=== PATIENT | female | born 1935 | race Caucasian/White ===

== ENCOUNTER 2016-07-16 19:08 | Inpatient (IN) | payer MEDICARE ==
[~2016-07-16] VITALS: Ht 160 cm; Wt 58.9 kg
[2016-07-16 19:23] VITALS: BP 116/58; PULSE 94; RESP 28; TEMP 98.4; O2SAT 93
--- NOTE | 2016-07-16 19:28 | PD ---
HPI Chief Complaint: GI Complaint Time Seen by Provider: 19:24 Travel History International Travel<30 days: No Contact w/Intl Traveler<30days: No Traveled to known affect area: No History of Present Illness HPI 80-year-old female with history of cardiac dysrhythmia, anxiety, hyperlipidemia , anemia, dementia, hypertension, CAD, brought in by ambulance from her assisted living facility for evaluation of nausea, vomiting, diarrhea, abdominal pain. Symptoms started at 2 AM today. Emesis and bowel movements are nonbloody. Abdominal pain described as nauseous feeling. Patient is also complaining moderate diffuse headache. She denies history of abdominal surgeries. No urinary symptoms. She is feeling lightly short of breath. No chest pain. EMS reports that her initial blood pressure was 90s over 60s and she was administered a 500 cc normal saline bolus by them. [facility]LY [facility] Social History Tobacco Use: No Allergies-Medications (Allergen,Severity, Reaction): Coded Allergies: No Known Allergies (Unverified , 07/16/16) Reported Meds & Prescriptions Reported Meds & Active Scripts Active Reported Trazodone (Trazodone HCl) 50 Mg Tab 50 Mg PO TID Triamcinolone Topical 0.025 % Oint 1 Applic TOPICAL BID Sertraline (Sertraline HCl) 100 Mg Tab 100 Mg PO DAILY Santyl Topical (Collagenase) 250 Unit/Gm Oint 1 Applic TOPICAL DAILY Pantoprazole (Pantoprazole Sodium) 40 Mg Tab 40 Mg PO DAILY Mirtazapine 15 Mg Tab 15 Mg PO HS Levocetirizine 5 Mg Tab 5 Mg PO DAILY Ferosul (Ferrous Sulfate) 220 Mg/5 Ml Elx 325 Mg PO BID Clobetasol Topical (Clobetasol Propionate) 0.05% Cream 1 Applic TOPICAL BID Carvedilol 6.25 Mg Tab 6.25 Mg PO BID Calcium 500 +D (Calcium Carbonate-Cholecalciferol) 500-400 Mg-Unit Tab 1 Tab PO BID Buspirone (Buspirone HCl) 10 Mg Tab 10 Mg PO BID Atorvastatin (Atorvastatin Calcium) 40 Mg Tab 40 Mg PO HS Aspirin 81 Mg Tabdr 81 Mg PO DAILY Review of Systems Except as stated in HPI: all other systems reviewed are Neg Physical Exam Narrative GENERAL: Pleasant, well-developed, well-nourished, no acute distress. SKIN: Focused skin assessment warm/dry. HEAD: Atraumatic. Normocephalic. EYES: Pupils equal and round. No scleral icterus. No injection or drainage. ENT: Mucous membranes pink and moist. NECK: Trachea midline. No JVD. No nuchal rigidity. CARDIOVASCULAR: Regular rate and rhythm. RESPIRATORY: No accessory muscle use. Clear to auscultation. Breath sounds equal bilaterally. GASTROINTESTINAL: Abdomen soft, mild distention, mild diffuse tenderness, no peritoneal signs. Normal bowel sounds. No hernias. MUSCULOSKELETAL: No obvious deformities. No clubbing. No cyanosis. No edema. NEUROLOGICAL: Awake and alert. No obvious cranial nerve deficits. Motor grossly within normal limits. Normal speech. PSYCHIATRIC: Appropriate mood and affect; insight and judgment normal. Data Data Last Documented VS Vital Signs Date Time Temp Pulse Resp B/P Pulse Ox O2 Delivery O2 Flow Rate FiO2 07/16/16 21:25 81 20 114/70 98 Nasal Cannula 2 07/16/16 19:23 98.4 Orders Electrocardiogram (07/16/16 19:24) Complete Blood Count With Diff (07/16/16 19:24) Comprehensive Metabolic Panel (07/16/16 19:24) Prothrombin Time / Inr (Pt) (07/16/16 19:24) Act Partial Throm Time (Ptt) (07/16/16 19:24) Lactic Acid Sepsis Protocol (07/16/16 19:24) Magnesium (Mg) (07/16/16 19:24) Lipase (07/16/16 19:24) Ckmb (Isoenzyme) Profile (07/16/16 19:24) Troponin I (07/16/16 19:24) Urinalysis - C+S If Indicated (07/16/16 19:24) Blood Culture (07/16/16 19:24) Chest, Single Ap (07/16/16 19:24) Ecg Monitoring (07/16/16 19:24) Iv Access Insert/Monitor (07/16/16 19:24) Oximetry (07/16/16 19:24) Oxygen Administration (07/16/16 19:24) Ct Abd/Pel W Iv Contrast(Rout) (07/16/16 19:24) Ct Brain W/O Iv Contrast(Rout) (07/16/16 ) Metoclopramide Inj (Reglan Inj) (07/16/16 20:00) Morphine Inj (Morphine Inj) (07/16/16 20:00) Iodixanol 320 Inj (Visipaque 320 Inj) (07/16/16 21:00) Admit Order (Ed Use Only) (07/16/16 21:40) Labs Laboratory Tests Test 07/16/16 19:40 White Blood Count 9.5 TH/MM3 Red Blood Count 4.41 MIL/MM3 Hemoglobin 13.1 GM/DL Hematocrit 38.8 % Mean Corpuscular Volume 88.0 FL Mean Corpuscular Hemoglobin 29.6 PG Mean Corpuscular Hemoglobin 33.7 % Concent Red Cell Distribution Width 13.8 % Platelet Count 203 TH/MM3 Mean Platelet Volume 9.8 FL Neutrophils (%) (Auto) 86.3 % Lymphocytes (%) (Auto) 5.8 % Monocytes (%) (Auto) 7.1 % Eosinophils (%) (Auto) 0.3 % Basophils (%) (Auto) 0.5 % Neutrophils # (Auto) 8.2 TH/MM3 Lymphocytes # (Auto) 0.6 TH/MM3 Monocytes # (Auto) 0.7 TH/MM3 Eosinophils # (Auto) 0.0 TH/MM3 Basophils # (Auto) 0.0 TH/MM3 CBC Comment DIFF FINAL Differential Comment Prothrombin Time 10.7 SEC Prothromb Time International 1.0 RATIO Ratio Activated Partial 29.2 SEC Thromboplast Time Urine Color YELLOW Urine Turbidity HAZY Urine pH 5.5 Urine Specific [place] 1.026 Urine Protein 30 mg/dL Urine Glucose (UA) NEG mg/dL Urine Ketones NEG mg/dL Urine Occult Blood TRACE Urine Nitrite NEG Urine Bilirubin NEG Urine Urobilinogen LESS THAN 2.0 MG/DL Urine Leukocyte Esterase NEG Urine RBC LESS THAN 1 /hpf Urine WBC LESS THAN 1 /hpf Urine Hyaline Casts 18 /lpf Urine Mucus FEW /lpf Microscopic Urinalysis Comment CATH-CULT NOT IND Sodium Level 136 MEQ/L Potassium Level 3.8 MEQ/L Chloride Level 103 MEQ/L Carbon Dioxide Level 25.0 MEQ/L Anion Gap 8 MEQ/L Blood Urea Nitrogen 24 MG/DL Creatinine 1.42 MG/DL Estimat Glomerular Filtration 36 ML/MIN Rate Random Glucose 127 MG/DL Lactic Acid Level 1.2 mmol/L Calcium Level 8.8 MG/DL Magnesium Level 2.1 MG/DL Total Bilirubin 0.6 MG/DL Aspartate Amino Transf 18 U/L (AST/SGOT) Alanine Aminotransferase 16 U/L (ALT/SGPT) Alkaline Phosphatase 89 U/L Total Creatine Kinase 95 U/L Troponin I LESS THAN 0.02 NG/ML Total Protein 7.9 GM/DL Albumin 3.7 GM/DL Lipase 92 U/L MDM Medical Decision Making Medical Screen Exam Complete: Yes Emergency Medical Condition: Yes Differential Diagnosis Gastroenteritis, dehydration, bowel obstruction, colitis, diverticulitis, hepatobiliary disease, pancreatitis, mesenteric ischemia, AAA Narrative Course Initial vital signs show heart rate 94, blood pressure 116/58, pulse ox 93% on room air, oral temp of 98.4F. CBC shows WBC 9.5, hemoglobin 13.1, hematocrit 38.8, platelets 203, neutrophils 86.3%. CMP is remarkable for BUN 24, creatinine 1.42, GFR 36. Unknown baseline. Otherwise unremarkable. Lipase is 92. Lactic acid is 1.2. Cardiac enzymes are negative. UA is not suggestive of UTI. Chest x-ray: No acute disease. CT head: Normal exam. CT abdomen pelvis: BOWEL/MESENTERY: There is an abnormal appearance at the GE junction and with a lobular mixed density process appearing to protrude into the fundus from the GE junction and a similar appearance involving the distal esophagus. A mucosal mass needs to be excluded if there has not been surgery to potentially explain this appearance ( fundoplication, for example). The bowel is otherwise benign in appearance with no abnormal dilatation and no inflammatory changes. No extraluminal gas or fluid. ABDOMINAL WALL: Within normal limits. RETROPERITONEUM: There is no lymphadenopathy. BLADDER: No wall thickening or mass. REPRODUCTIVE: The uterus may be surgically absent though this surgery not reported. No definite pelvic mass. INGUINAL: There is no lymphadenopathy or hernia. MUSCULOSKELETAL: Prominent streak artifact from total hip arthroplasties. Prominent spinal degenerative changes and scoliosis. CONCLUSION: Abnormal appearance of the GE junction as above. Patient was given IV Zofran by EMS and was given Reglan here. She reports that her headache has resolved after receiving 2 mg of morphine. She is still feeling very nauseous. Her abdominal exam is benign. She was made aware of all findings. Given persistent nausea and above CT findings as well as lack of follow-up, the patient be admitted for overnight observation for further treatment and evaluation and likely GI consultation. Case discussed with hospitalist Dr. Deleon who will admit the patient to her service. Diagnosis Primary Impression: Nausea and vomiting Qualified Code: R11.2 - Intractable vomiting with nausea, unspecified vomiting type Additional Impression: Abnormal CT of the abdomen Admitting Information Admitting Physician Requests: Observation Kraig Marie MD Jul 16, 2016 19:28
[2016-07-16 19:30] VITALS: O2SAT 98
[2016-07-16 19:58] LABS: AUTOMATED NEUTROPHIL # 8.2 TH/MM3 (1.8-7.7); BASOPHIL % 0.5 % (0.0-2.0); EOSINOPHIL % 0.3 % (0.0-4.0); HEMATOCRIT 38.8 % (35.0-46.0); HEMO FLAGS DIFF FINAL; LYMPH % 5.8 % (9.0-44.0); LYMPHOCYTE # 0.6 TH/MM3 (1.0-4.8); MEAN CORPUSCULAR HEMOGLOBIN 29.6 PG (27.0-34.0); MEAN CORPUSCULAR HGB CONC 33.7 % (32.0-36.0); MONO % 7.1 % (0.0-8.0); NEUT % 86.3 % (16.0-70.0); PLATELET COUNT 203 TH/MM3 (150-450); RED BLOOD COUNT 4.41 MIL/MM3 (4.00-5.30); RED CELL DISTRIBUTION WIDTH 13.8 % (11.6-17.2); WHITE BLOOD COUNT 9.5 TH/MM3 (4.0-11.0)
[2016-07-16] MEDS ORDERED: METOCLOPRAMIDE HCL 10 MG/2 ML VIAL IV PUSH ONE (20:00)
[2016-07-16] MEDS ORDERED: MORPHINE SULFATE 4 MG/ML INJ IV PUSH ONE (20:00)
--- NOTE | 2016-07-16 20:00 | RADRPT ---
EXAM DATE/TIME: 07/16/2016 19:43 [facility] COMPARISON: No previous studies available for comparison. INDICATIONS : Short of breath. MEDICAL HISTORY : None. SURGICAL HISTORY : Pacemaker. ENCOUNTER: Initial ACUITY: 1 day PAIN SCORE: 6/10 LOCATION: Bilateral chest FINDINGS: Pacemaker device is noted with control pack over the left chest. Lungs are focally clear. No pleural effusion is identified. Cardiac contours are satisfactory. There are severe arthritic changes in the shoulders. CONCLUSION: No acute disease Anuj Osborne MD on July 16, 2016 at 19:58 Board Certified Radiologist. This report was verified electronically.
[2016-07-16 20:08] LABS: BLOOD, URINE TRACE (NEG); GLUCOSE,URINE NEG (NEG); HYALINE CAST, URINE 18 /lpf (RARE); KETONE, URINE NEG (NEG); MUCUS URINE FEW /lpf (OCC); NITRITE,URINE NEG (NEG); PH, URINE 5.5 (5.0-8.5); URINE COLOR YELLOW (YELLW/STRAW)
[2016-07-16 20:09] LABS: APTT (PATIENT) 29.2 SEC (24.3-30.1); PROTHROMBIN TIME - PATIENT 10.7 SEC (9.8-11.6)
[2016-07-16 20:12] LABS: COMMENT (UR) CATH-CULT NOT IND; CULTURE IF INDICATED CATH CULTURE NOT IND
[2016-07-16 20:16] LABS: ANION GAP 8 MEQ/L (5-15); AST (GOT) 18 U/L (15-37); BLOOD UREA NITROGEN 24 MG/DL (7-18); CHLORIDE 103 MEQ/L (98-107); GLOMERULAR FILTRATION RATE 36 ML/MIN (>89); MAGNESIUM 2.1 MG/DL (1.5-2.5); POTASSIUM 3.8 MEQ/L (3.5-5.1); SODIUM (NA) 136 MEQ/L (136-145)
[2016-07-16 20:21] LABS: ALKALINE PHOSPHATASE 89 U/L (45-117); ALT (GPT) 16 U/L (10-53); TOTAL BILIRUBIN ADULT 0.6 MG/DL (0.2-1.0)
[2016-07-16 20:22] LABS: CREATINE KINASE 95 U/L (26-192)
[2016-07-16] MEDS ORDERED: IODIXANOL 320 MG/ML 10 ML VIAL (for RAD SPEC) IV ONE (21:00)
--- NOTE | 2016-07-16 21:06 | RADRPT ---
EXAM DATE/TIME: 07/16/2016 20:38 [facility] COMPARISON: No previous studies available for comparison. INDICATIONS : Headache. RADIATION DOSE: 36.64 CTDIvol (mGy) MEDICAL HISTORY : Cardiovascular disease. SURGICAL HISTORY : Pacemaker. Appendectomy.back surgery ENCOUNTER: Initial ACUITY: 1 day PAIN SCALE: 5/10 LOCATION: cranial TECHNIQUE: Multiple contiguous axial images were obtained of the head. Using automated exposure control and adj ustment of the mA and/or kV according to patient size, radiation dose was kept as low as reasonably a chievable to obtain optimal diagnostic quality images. FINDINGS: CEREBRUM: The ventricles are normal for age. No evidence of midline shift, mass lesion, hemorrhage or acute in farction. No extra-axial fluid collections are seen. POSTERIOR FOSSA: The cerebellum and brainstem are intact. The 4th ventricle is midline. The cerebellopontine angle i s unremarkable. EXTRACRANIAL: The visualized portion of the orbits is intact. SKULL: The calvaria is intact. No evidence of skull fracture. CONCLUSION: Normal examination. Anuj Osborne MD on July 16, 2016 at 21:03 Board Certified Radiologist. This report was verified electronically.
--- NOTE | 2016-07-16 21:16 | RADRPT ---
EXAM DATE/TIME: 07/16/2016 20:54 [facility] COMPARISON: No previous studies available for comparison. INDICATIONS : Nausea. IV CONTRAST: 46 cc Visipaque (iodixanol) IV ORAL CONTRAST: No oral contrast ingested. RADIATION DOSE: 10.50 CTDIvol (mGy) MEDICAL HISTORY : Cardiovascular disease. SURGICAL HISTORY : Pacemaker. Appendectomy.back surgery ENCOUNTER: Initial ACUITY: 1 day PAIN SCALE: 5/10 LOCATION: abdomen TECHNIQUE: Volumetric scanning of the abdomen and pelvis was performed. Using automated exposure control and ad justment of the mA and/or kV according to patient size, radiation dose was kept as low as reasonably achievable to obtain optimal diagnostic quality images. FINDINGS: LOWER LUNGS: There is minimal atelectasis or scarring in the lateral left lung base. LIVER: There are couple of small liver cysts. No suspicious mass or biliary ductal dilatation. SPLEEN: Normal size without lesion. PANCREAS: Within normal limits. KIDNEYS: Normal in size and shape. There is no mass, stone or hydronephrosis. ADRENAL GLANDS: Within normal limits. VASCULAR: There is no aortic aneurysm. BOWEL/MESENTERY: There is an abnormal appearance at the GE junction and with a lobular mixed density process appearing to protrude into the fundus from the GE junction and a similar appearance involving the distal esoph radha. A mucosal mass needs to be excluded if there has not been surgery to potentially explain this a ppearance (fundoplication, for example). The bowel is otherwise benign in appearance with no abnormal dilatation and no inflammatory changes. No extraluminal gas or fluid. ABDOMINAL WALL: Within normal limits. RETROPERITONEUM: There is no lymphadenopathy. BLADDER: No wall thickening or mass. REPRODUCTIVE: The uterus may be surgically absent though this surgery not reported. No definite pelvic mass. INGUINAL: There is no lymphadenopathy or hernia. MUSCULOSKELETAL: Prominent streak artifact from total hip arthroplasties. Prominent spinal degenerative changes and sc oliosis. CONCLUSION: Abnormal appearance of the GE junction as above. Anuj Osborne MD on July 16, 2016 at 21:05 Board Certified Radiologist. This report was verified electronically.
[2016-07-16 21:25] VITALS: BP 114/70; PULSE 81; RESP 20; O2SAT 98
[2016-07-16] MEDS ORDERED: CALC1TAB12 PO (21:38)
[2016-07-16] MEDS ORDERED: ASPI1TAB69 PO (21:38)
[2016-07-16] MEDS ORDERED: BUSP10TA PO (21:38)
[2016-07-16] MEDS ORDERED: ATOR40TA16 PO (21:38)
[2016-07-16] MEDS ORDERED: CARV6.252 PO (21:39)
[2016-07-16] MEDS ORDERED: CLOB0.055 TOPICAL (21:39)
[2016-07-16] MEDS ORDERED: FERR220E3 PO (21:40)
[2016-07-16] MEDS ORDERED: LEVOTAB PO (21:41)
[2016-07-16] MEDS ORDERED: PANT40TA3 PO (21:43)
[2016-07-16] MEDS ORDERED: MIRTA15 PO (21:43)
[2016-07-16] MEDS ORDERED: TRAZ50TA12 PO (21:44)
[2016-07-16] MEDS ORDERED: COLL30T TOPICAL (21:44)
[2016-07-16] MEDS ORDERED: SERT-129 PO (21:44)
[2016-07-16] MEDS ORDERED: TRIA0.022 TOPICAL (21:44)
--- NOTE | 2016-07-16 21:57 | HHI.HP ---
[facility] Service [facility] Primary Care Physician Unknown Admission Diagnosis persistent nausea and vomiting, abnormal CT abdomen Diagnoses: (1) Intractable nausea and vomiting Diagnosis: Principal (2) Esophageal mass Diagnosis: Principal (3) Renal insufficiency Diagnosis: Principal Travel History International Travel<30 Days: No Contact w/Intl Traveler <30 Da: No Traveled to Known Affected Are: No History of Present Illness This is a 80-year-old female with a PMH of Anxiety, Dementia, HTN and CAD who was sent to the ER from [facility] secondary to complaints of abdominal pain, nausea and vomiting x1 day. Denies fever or chills. Also w/ complaints of headache, resolved after Morphine IV. On arrival, BP 160/58, HR 94, O2 sat 93% on RA, Afebrile. WBC normal, elevated neutrophil count. Creatinine 1.42, no previous labs for comparison. Lactic Acid 1.2. Troponin negative. INR 1.0. UA negative. CT Head normal. CXR with no acute findings. CT Abd/Pelvis w/ abnormal appearance of GE junction with lobular mixed density process appearing to protrude in the fundus from GE junction also involving the distal esophagus, possibly mucosal mass. S/p Zofran, Reglan and Morphine in ER w/ some improvement. Review of Systems Except as stated in HPI: all other systems reviewed are Neg ROS: 14 point review of systems otherwise negative. Past Family Social History Past Medical History PMH: Anxiety, Dementia, HTN and CAD Past Surgical History PAST SURGICAL HISTORY: Pacemaker, Lumbar Surgery, Appendectomy, Toe Surgery Allergies: Coded Allergies: No Known Allergies (Unverified , 07/16/16) Family History PAST FAMILY HISTORY: Reviewed. No h/o DM or CAD Social History PAST SOCIAL HISTORY: Negative for alcohol, tobacco or drugs. Physical Exam Vital Signs Vital Signs Date Time Temp Pulse Resp B/P Pulse Ox O2 Delivery O2 Flow Rate FiO2 07/16/16 21:25 81 20 114/70 98 Nasal Cannula 2 07/16/16 19:30 100 Nasal Cannula 2 07/16/16 19:30 98 Nasal Cannula 2 07/16/16 19:23 98.4 94 28 116/58 93 Physical Exam PE: GENERAL: Pleasant elderly female in no acute distress. HEENT: PERRLA, EOMI. No scleral icterus or conjunctival pallor. No lid lag or facial droop. CARDIOVASCULAR: Regular rate and rhythm. No obvious murmurs to auscultation. No chest tenderness to palpation. RESPIRATORY: No obvious rhonchi or wheezing. Clear to auscultation. Breath sounds equal bilaterally. GASTROINTESTINAL: Abdomen soft, mild generalized tenderness to palpation, nondistended. BS normal. MUSCULOSKELETAL: Extremities without clubbing, cyanosis, or edema. No obvious deformities. NEUROLOGICAL: Awake, alert and oriented x4. No focal neurologic deficits. Moving both upper and lower extremities spontaneously. Laboratory Laboratory Tests Test 07/16/16 19:40 White Blood Count 9.5 Red Blood Count 4.41 Hemoglobin 13.1 Hematocrit 38.8 Mean Corpuscular Volume 88.0 Mean Corpuscular Hemoglobin 29.6 Mean Corpuscular Hemoglobin 33.7 Concent Red Cell Distribution Width 13.8 Platelet Count 203 Mean Platelet Volume 9.8 Neutrophils (%) (Auto) 86.3 Lymphocytes (%) (Auto) 5.8 Monocytes (%) (Auto) 7.1 Eosinophils (%) (Auto) 0.3 Basophils (%) (Auto) 0.5 Neutrophils # (Auto) 8.2 Lymphocytes # (Auto) 0.6 Monocytes # (Auto) 0.7 Eosinophils # (Auto) 0.0 Basophils # (Auto) 0.0 CBC Comment DIFF FINAL Differential Comment Prothrombin Time 10.7 Prothromb Time International 1.0 Ratio Activated Partial 29.2 Thromboplast Time Urine Color YELLOW Urine Turbidity HAZY Urine pH 5.5 Urine Specific [place] 1.026 Urine Protein 30 Urine Glucose (UA) NEG Urine Ketones NEG Urine Occult Blood TRACE Urine Nitrite NEG Urine Bilirubin NEG Urine Urobilinogen LESS THAN 2.0 Urine Leukocyte Esterase NEG Urine RBC LESS THAN 1 Urine WBC LESS THAN 1 Urine Hyaline Casts 18 Urine Mucus FEW Microscopic Urinalysis Comment CATH-CULT NOT IND Sodium Level 136 Potassium Level 3.8 Chloride Level 103 Carbon Dioxide Level 25.0 Anion Gap 8 Blood Urea Nitrogen 24 Creatinine 1.42 Estimat Glomerular Filtration 36 Rate Random Glucose 127 Lactic Acid Level 1.2 Calcium Level 8.8 Magnesium Level 2.1 Total Bilirubin 0.6 Aspartate Amino Transf 18 (AST/SGOT) Alanine Aminotransferase 16 (ALT/SGPT) Alkaline Phosphatase 89 Total Creatine Kinase 95 Troponin I LESS THAN 0.02 Total Protein 7.9 Albumin 3.7 Lipase 92 Date/Time Procedure Status Source Growth 07/16/16 19:45 Aerobic Blood Culture Received Blood Peripheral Pending 07/16/16 19:45 Anaerobic Blood Culture Received Blood Peripheral Pending Result Diagram: 07/16/16193907/16/161939 Assessment and Plan Problem List: (1) Intractable nausea and vomiting ICD Code: R11.2 Status: Acute (2) Esophageal mass ICD Code: K22.9 Status: Acute (3) Renal insufficiency ICD Code: N28.9 Status: Acute Assessment and Plan A/P: 1. Intractable Nausea/Vomiting: c/o abdominal pain, nausea/vomiting x1 day, no fever/chills. CT Abd/Pelvis w/ no acute findings except for possible GE junction mass, images reviewed by me. CT Head negative for acute findings, images reviewed. IVF for hydration, analgesics/antiemetics as needed. 2. Esophageal Mass: CT Abd/Pelvis w/ abnormal findings at GE junction, w/ possible mucosal mass, images reviewed, no history of similar findings. Consult GI for further evaluation. 3. Renal Insufficiency: Creatinine 1.42, no previous labs for comparison. U/ a negative for UTI. IVF, repeat labs in am. 4. DVT Prophylaxis: SCD/teds. 5. Social work for DC planning as needed. 6. Case discussed at length with ER physician. Megan Deleon MD Jul 16, 2016 21:57
[2016-07-16] MEDS ORDERED: SODIUM CHLORIDE 0.9% FLUSH 10 ML FLUSH IV FLUSH PRN (22:00)
[2016-07-16] MEDS ORDERED: ACETAMINOPHEN/HYDROcodone 325 MG/5 MG TAB PO PRN (22:00)
[2016-07-16] MEDS ORDERED: BISACODYL 10 MG SUPP RECTAL PRN (22:00)
[2016-07-16] MEDS ORDERED: ONDANSETRON HCL 4 MG/2 ML VIAL IVP PRN (22:00)
[2016-07-16] MEDS ORDERED: MORPHINE SULFATE 4 MG/ML INJ IV PRN (22:00)
[2016-07-16 22:55] VITALS: BP 98/55; PULSE 78; RESP 18; O2SAT 97
[2016-07-16] MEDS: SODIUM CHLOR 0.9% 1000 ML INJ 1,000 ML IV SCH (22:59)
[2016-07-16 23:30] VITALS: BP 125/70; PULSE 72; RESP 20; TEMP 97.8; O2SAT 97
[2016-07-17 04:27] VITALS: BP 99/69; PULSE 68; RESP 20; TEMP 97.6; O2SAT 96
[2016-07-17 08:00] VITALS: BP 104/56; PULSE 74; RESP 20; TEMP 97.4; O2SAT 98
[2016-07-17] MEDS: CARVEDILOL 6.25 MG TAB PO SCH ×2 (08:46→21:08)
[2016-07-17] MEDS: traZODone HCL 50 MG TAB PO SCH ×3 (08:47→18:38)
[2016-07-17] MEDS: FERROUS SULFATE 325 MG (65 MG ELEMENTAL IRON) TAB PO SCH ×2 (08:47→21:08)
[2016-07-17] MEDS: SERTRALINE HCL 100 MG TAB PO SCH (08:47)
[2016-07-17] MEDS: busPIRone HCL 10 MG TAB PO SCH ×2 (08:47→21:08)
[2016-07-17] MEDS: PANTOPRAZOLE SOD 40 MG DELAYED RELEASE TAB PO SCH (08:47)
[2016-07-17] MEDS: SODIUM CHLORIDE 0.9% FLUSH 10 ML FLUSH IV FLUSH SCH ×2 (08:48→21:07)
[2016-07-17] MEDS: COLLAGENASE OINT 30 GM TUBE TOPICAL SCH (09:00)
[2016-07-17] MEDS: FLUOCINOLONE ACETONIDE 0.01% CR 15 GM TUBE TOPICAL SCH ×2 (09:00→21:12)
[2016-07-17] MEDS: BETAMETHASONE DIPROPIONATE 0.05% OINT 15 GM TUBE TOPICAL SCH ×2 (09:00→21:12)
--- NOTE | 2016-07-17 09:23 | PD.CONS ---
HPI History of Present Illness This is a 80 year old female with a PMH of Anxiety, Dementia, HTN and CAD who was sent to the ER from [facility] secondary to nausea and vomiting that started last night at 2 am. Reports approx. 5 episodes of emesis, this was bile, non bloody. She also endorses diarrhea that started around the same time as well. She denies hematemesis, abdomen pain, hematochezia, melena, fever or chills. She denies previous history of this. CT Abd/Pelvis w/ abnormal appearance of GE junction with lobular mixed density process appearing to protrude in the fundus from GE junction also involving the distal esophagus, possibly mucosal mass. She denies abdominal surgeries. Patient denies ever having EGD/ colonoscopy before. PFSH Past Medical History PMH: Anxiety, Dementia, HTN and CAD Past Surgical History PAST SURGICAL HISTORY: Pacemaker, Lumbar Surgery, Appendectomy, Toe Surgery Coded Allergies: No Known Allergies (Unverified , 07/16/16) Medications Current Medications Medications (Trade) Dose Ordered Sig/Re Route Start Time Stop Time Status Last Admin (NS 1000 ml Inj) 1,000 ml @ 100 mls/hr Q10H IV 07/16/16 21:52 07/16/16 22:59 (NS Flush) 2 ml UNSCH PRN IV FLUSH 07/16/16 22:00 (NS Flush) 2 ml BID IV FLUSH 07/17/16 09:00 07/17/16 08:48 (Zofran Inj) 4 mg Q6H PRN IVP 07/16/16 22:00 (Dulcolax Supp) 10 mg DAILY PRN RECTAL 07/16/16 22:00 (Tylenol) 650 mg Q6H PRN PO 07/16/16 22:00 (Naylor 5-325 Mg) 1 tab Q4H PRN PO 07/16/16 22:00 (Morphine Inj) 2 mg Q3H PRN IV 07/16/16 22:00 (Lipitor) 40 mg HS PO 07/17/16 21:00 (Buspar) 10 mg BID PO 07/17/16 09:00 07/17/16 08:47 (Coreg) 6.25 mg BID PO 07/17/16 09:00 (Santyl Oint) 1 applic DAILY TOPICAL 07/17/16 09:00 (Remeron) 15 mg HS PO 07/17/16 21:00 (Protonix) 40 mg DAILY PO 07/17/16 09:00 07/17/16 08:47 (Zoloft) 100 mg DAILY PO 07/17/16 09:00 07/17/16 08:47 (Desyrel) 50 mg TID PO 07/17/16 09:00 07/17/16 08:47 (Synalar 0.01% Cream) 1 applic BID TOPICAL 07/17/16 09:00 (Diprosone 0.05% Ointment) 1 applic BID TOPICAL 07/17/16 09:00 (Ferrous Sulfate) 325 mg BID PO 07/17/16 09:00 07/17/16 08:47 Family History No family hx of gastric cancer Social History PAST SOCIAL HISTORY: Negative for alcohol, tobacco or drugs. Review of Systems Constitutional: DENIES: Fever, Weight loss, Chills Endocrine: DENIES: Polyuria Eyes: DENIES: Double Vision Ears, nose, mouth, throat: DENIES: Hoarseness Respiratory: DENIES: Shortness of breath Cardiovascular: DENIES: Lower Extremity Edema Gastrointestinal: COMPLAINS OF: Diarrhea, Nausea, Vomiting, DENIES: Abdominal pain, Black stools, Bloody stools, Constipation, Difficulty Swallowing, Anorexia , Odynophagia, Swelling of Abdomen, Heartburn, Hematemesis Genitourinary: DENIES: Hematuria Musculoskeletal: DENIES: Neck pain Integumentary: DENIES: Jaundice Hematologic/lymphatic: DENIES: Bruising Immunologic/allergic: DENIES: Eczema Neurologic: DENIES: Abnormal gait Psychiatric: DENIES: Confusion GI Exam Vitals I&O Vital Signs Date Time Temp Pulse Resp B/P Pulse Ox O2 Delivery O2 Flow Rate FiO2 07/17/16 08:00 97.4 74 20 104/56 98 07/17/16 04:27 97.6 68 20 99/69 96 07/16/16 23:30 97.8 72 20 125/70 97 07/16/16 22:55 78 18 98/55 97 Nasal Cannula 2 07/16/16 21:25 81 20 114/70 98 Nasal Cannula 2 07/16/16 19:30 100 Nasal Cannula 2 07/16/16 19:30 98 Nasal Cannula 2 07/16/16 19:23 98.4 94 28 116/58 93 I/O 07/16/16 07/16/16 07/16/16 07/17/16 07/17/16 07/17/16 07:00 15:00 23:00 07:00 15:00 23:00 Intake Total 500 ml Output Total 160 ml Balance 340 ml Intake IV Total 500 ml Output Urine Total 160 ml # Voids 1 1 Imaging Last Impressions Chest X-Ray 07/16/161923 Signed Impressions: Service Date/Time: Saturday, July 16, 2016 19:43 - CONCLUSION: No acute disease Anuj Osborne MD Abdomen/Pelvis CT 07/16/161923 Signed Impressions: Service Date/Time: Saturday, July 16, 2016 20:54 - CONCLUSION: Abnormal appearance of the GE junction as above. Anuj Osborne MD Head CT 07/16/16 0000 Signed Impressions: Service Date/Time: Saturday, July 16, 2016 20:38 - CONCLUSION: Normal examination. Anuj Osborne MD Laboratory Test 07/16/16 19:40 White Blood Count 9.5 TH/MM3 Red Blood Count 4.41 MIL/MM3 Hemoglobin 13.1 GM/DL Hematocrit 38.8 % Mean Corpuscular Volume 88.0 FL Mean Corpuscular Hemoglobin 29.6 PG Mean Corpuscular Hemoglobin 33.7 % Concent Red Cell Distribution Width 13.8 % Platelet Count 203 TH/MM3 Mean Platelet Volume 9.8 FL Neutrophils (%) (Auto) 86.3 % Lymphocytes (%) (Auto) 5.8 % Monocytes (%) (Auto) 7.1 % Eosinophils (%) (Auto) 0.3 % Basophils (%) (Auto) 0.5 % Neutrophils # (Auto) 8.2 TH/MM3 Lymphocytes # (Auto) 0.6 TH/MM3 Monocytes # (Auto) 0.7 TH/MM3 Eosinophils # (Auto) 0.0 TH/MM3 Basophils # (Auto) 0.0 TH/MM3 CBC Comment DIFF FINAL Differential Comment Prothrombin Time 10.7 SEC Prothromb Time International 1.0 RATIO Ratio Activated Partial 29.2 SEC Thromboplast Time Urine Color YELLOW Urine Turbidity HAZY Urine pH 5.5 Urine Specific [place] 1.026 Urine Protein 30 mg/dL Urine Glucose (UA) NEG mg/dL Urine Ketones NEG mg/dL Urine Occult Blood TRACE Urine Nitrite NEG Urine Bilirubin NEG Urine Urobilinogen LESS THAN 2.0 MG/DL Urine Leukocyte Esterase NEG Urine RBC LESS THAN 1 /hpf Urine WBC LESS THAN 1 /hpf Urine Hyaline Casts 18 /lpf Urine Mucus FEW /lpf Microscopic Urinalysis Comment CATH-CULT NOT IND Sodium Level 136 MEQ/L Potassium Level 3.8 MEQ/L Chloride Level 103 MEQ/L Carbon Dioxide Level 25.0 MEQ/L Anion Gap 8 MEQ/L Blood Urea Nitrogen 24 MG/DL Creatinine 1.42 MG/DL Estimat Glomerular Filtration 36 ML/MIN Rate Random Glucose 127 MG/DL Lactic Acid Level 1.2 mmol/L Calcium Level 8.8 MG/DL Magnesium Level 2.1 MG/DL Total Bilirubin 0.6 MG/DL Aspartate Amino Transf 18 U/L (AST/SGOT) Alanine Aminotransferase 16 U/L (ALT/SGPT) Alkaline Phosphatase 89 U/L Total Creatine Kinase 95 U/L Troponin I LESS THAN 0.02 NG/ML Total Protein 7.9 GM/DL Albumin 3.7 GM/DL Lipase 92 U/L Date/Time Procedure Status Source Growth 07/16/16 19:45 Aerobic Blood Culture Received Blood Peripheral Pending 07/16/16 19:45 Anaerobic Blood Culture Received Blood Peripheral Pending Physical Examination HEENT: normocephalic; atraumatic; no jaundice. Throat is clear. NECK: Neck is supple, no JVD, no lymphadenopathy. CHEST: Chest is clear to auscultation and percussion. CARDIAC: Regular rate and rhythm with no murmur gallop or rubs. ABDOMEN: Soft, nondistended, nontender; no hepatosplenomegaly; bowel sounds are present in all four quadrants. EXTREMITIES: No clubbing, cyanosis, or edema. SKIN: Normal; no rash; no jaundice. LONG TERM CARE PHLEBOTOMIST: No focal deficits; alert and oriented times three. Assessment and Plan Plan - Intractable Nausea/Vomiting X one day- CT Abd/Pelvis w/ no acute findings except for possible GE junction mass - Esophageal Mass- CT Abd/Pelvis w/ abnormal findings at GE junction, w/ possible mucosal mass, no history of similar findings. - Renal Insufficiency- possibly secondary to dehydration Plan: - Full liquids diet - EGD on Tuesday - Obtain consents - Supportive care - Patient seen and examined by Dr. Michelle and myself and this note is written on his behalf. Randi Vargas Jul 17, 2016 09:23
--- NOTE | 2016-07-17 09:36 | HHI.PR ---
Subjective Remarks Follow up for dehydration secondary to nausea and vomiting. Patient alert and oriented. Patient denies any further nausea and vomiting. Patient denies any reflux or difficulty swallowing. Denies any recent fever, cough, chills, shortness of breath. CT results of GE junction mass, discussed with patient. GI FURNACE RELINER at bedside, EGD planned for Tuesday for 07/19. Denies any fever or chills. Patient lives in at an assisted living facility, and states that she has lost all her family members. Patient states that she wants Naomie, her cousin who lives in [place], to be her healthcare decision maker if patient is unable. CODE STATUS was discussed with patient and it is clear that she does not want any resuscitative efforts in the event they are needed. Objective Vitals Vital Signs Date Time Temp Pulse Resp B/P Pulse Ox O2 Delivery O2 Flow Rate FiO2 07/17/16 08:00 97.4 74 20 104/56 98 07/17/16 04:27 97.6 68 20 99/69 96 07/16/16 23:30 97.8 72 20 125/70 97 07/16/16 22:55 78 18 98/55 97 Nasal Cannula 2 07/16/16 21:25 81 20 114/70 98 Nasal Cannula 2 07/16/16 19:30 100 Nasal Cannula 2 07/16/16 19:30 98 Nasal Cannula 2 07/16/16 19:23 98.4 94 28 116/58 93 I/O 07/16/16 07/16/16 07/16/16 07/17/16 07/17/16 07/17/16 07:00 15:00 23:00 07:00 15:00 23:00 Intake Total 500 ml Output Total 160 ml Balance 340 ml Intake IV Total 500 ml Output Urine Total 160 ml # Voids 1 1 Result Diagram: 07/16/16193907/16/161939 Imaging Last Impressions Chest X-Ray 07/16/161923 Signed Impressions: Service Date/Time: Saturday, July 16, 2016 19:43 - CONCLUSION: No acute disease Anuj Osborne MD Abdomen/Pelvis CT 07/16/161923 Signed Impressions: Service Date/Time: Saturday, July 16, 2016 20:54 - CONCLUSION: Abnormal appearance of the GE junction as above. Anju Osborne MD Head CT 07/16/16 0000 Signed Impressions: Service Date/Time: Saturday, July 16, 2016 20:38 - CONCLUSION: Normal examination. Anuj Osborne MD Objective Remarks GENERAL: Well-nourished, well-developed elderly female patient in [facility]. SKIN: Warm and dry. No rash. HEENT: Normocephalic. Atraumatic. Pupils equal and round. No scleral icterus. Mucous membranes pink and moist. NECK: Supple. Trachea midline. CARDIOVASCULAR: Regular rate and rhythm. S1, S2 noted. No murmur appreciated. RESPIRATORY: No accessory muscle use. Clear to auscultation. Breath sounds equal bilaterally. GASTROINTESTINAL: Abdomen soft, non-tender, nondistended. Normoactive bowel sounds x4. MUSCULOSKELETAL: No obvious deformities. Extremities without clubbing, cyanosis , or edema. NEUROLOGICAL: Awake and alert. No obvious cranial nerve deficits. Motor grossly within normal limits. 5/5 muscle strength in bilateral upper and lower extremities. Normal speech. PSYCHIATRIC: Appropriate mood and affect; insight and judgment normal. Urinary Catheter: No Vascular Central Line Catheter: No A/P Assessment and Plan Ms. Portillo is a 72-year-old female with a known history of hypertension and CAD who presented to the emergency room with complaints of nausea and vomiting x 1 one day. Acute kidney injury due to dehydration secondary to nausea and vomiting: Creatinine initially 1.42, BMP in a.m. Encourage PO intake, full liquid diet. Continue IV fluids. Close intake and output monitoring. Zofran PRN. Blood cultures drawn and pending, await growth. UA negative. 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 GI consulted and following, pain for EGD on Wednesday 07/19. Swallow evaluation ordered, monitor for aspiration. Protonix daily. Coronary artery disease: Status post stent placement three years ago. Pacemaker in place. Continue carvedilol, monitor heart rate and blood pressure closely. Continue aspirin. Continue telemetry. Generalized weakness: Encourage OOB with assistance. PT evaluation ordered. Reported hx of dementia, however patient denies and she appears 100% cogntively intact currently. states she started living in the [facility] several months ago when a family member . desires her cousin in [place] to serve as her HCS in the event she became incapacitated. DVT prophylaxis: SCDs CODE STATUS DNR: discussed at length with patient, it is clear that patient does not want resuscitative measures in the event they are needed. Written by Concepcion Blunt, acting as scribe for Dr. Perez on 07/17/16 at 09: 30. This note was transcribed by scribe. I, Dr. Amena Perez personally performed the history, physical exam, and medical decision making; and confirmed the accuracy of the information in the transcribed note. Authenticated by Dr. Amena Perez on 07/17/16 at 22:14. Concepcion Blunt Jul 17, 2016 09:36 Amena Perez MD Jul 17, 2016 22:16
[2016-07-17 11:29] LABS: AUTOMATED NEUTROPHIL # 4.3 TH/MM3 (1.8-7.7); BASOPHIL # 0.1 TH/MM3 (0-0.2); BASOPHIL % 0.8 % (0.0-2.0); EOSINOPHIL # 0.2 TH/MM3 (0-0.4); HEMATOCRIT 37.9 % (35.0-46.0); LYMPH % 15.9 % (9.0-44.0); MEAN CELL VOLUME 88.6 FL (80.0-100.0); MEAN CORPUSCULAR HEMOGLOBIN 29.1 PG (27.0-34.0); MEAN CORPUSCULAR HGB CONC 32.8 % (32.0-36.0); NEUT % 68.3 % (16.0-70.0); PLATELET COUNT 142 TH/MM3 (150-450); RED BLOOD COUNT 4.27 MIL/MM3 (4.00-5.30); RED CELL DISTRIBUTION WIDTH 13.9 % (11.6-17.2); WHITE BLOOD COUNT 6.3 TH/MM3 (4.0-11.0)
[2016-07-17 11:40] LABS: ALKALINE PHOSPHATASE 83 U/L (45-117); ALT (GPT) 17 U/L (10-53); ANION GAP 10 MEQ/L (5-15); AST (GOT) 19 U/L (15-37); BICARBONATE 17.2 MEQ/L (21.0-32.0); BLOOD UREA NITROGEN 20 MG/DL (7-18); CHLORIDE 110 MEQ/L (98-107); GLOMERULAR FILTRATION RATE 50 ML/MIN (>89); POTASSIUM 3.7 MEQ/L (3.5-5.1); SODIUM (NA) 137 MEQ/L (136-145); TOTAL BILIRUBIN ADULT 0.4 MG/DL (0.2-1.0)
[2016-07-17 12:00] VITALS: BP 98/54; PULSE 79; RESP 20; TEMP 97.4; O2SAT 92
[2016-07-17] MEDS: SODIUM CHLOR 0.9% 1000 ML INJ 1,000 ML IV SCH ×2 (12:13→18:38)
[2016-07-17 12:17] LABS: HEMO FLAGS AUTO DIFF
[2016-07-17 12:18] LABS: PLATELET ESTIMATE SMEAR LOW (NORMAL); PLATELET MORPHOLOGY NORMAL (NORMAL); SCAN/DIFF AUTO DIFF CONFIRMED
[2016-07-17 15:38] VITALS: BP 100/55; PULSE 88; RESP 20; TEMP 97.9; O2SAT 95
--- NOTE | 2016-07-17 15:53 | EKG ---
Date Performed: 07/16/2016 Time Performed: 19:37:30 PTAGE: 80 years EKG: ELECTRONIC VENTRICULAR PACEMAKER ABNORMAL RHYTHM ECG NO PREVIOUS TRACING DOCTOR: Ted Pettit Interpretating Date/Time 07/17/2016 15:52:57
[2016-07-17 19:53] VITALS: BP 118/61; PULSE 78; RESP 18; TEMP 97.9; O2SAT 94
[2016-07-17] MEDS: MIRTAZAPINE 15 MG TAB PO SCH (21:08)
[2016-07-17] MEDS: ATORVASTATIN 40 MG TAB PO SCH (21:08)
[2016-07-17 23:36] VITALS: BP 118/54; PULSE 82; RESP 18; TEMP 97.9; O2SAT 93
[2016-07-18] MEDS: SODIUM CHLOR 0.9% 1000 ML INJ 1,000 ML IV SCH ×2 (03:52→13:35)
[2016-07-18 04:19] VITALS: BP 115/55; PULSE 80; RESP 18; TEMP 97.9; O2SAT 94
[2016-07-18 08:00] VITALS: BP 100/51; PULSE 83; RESP 20; TEMP 97.8; O2SAT 98
--- NOTE | 2016-07-18 08:46 | HHI.GIFU ---
Subjective Remarks Patient is resting in bed, tolerated fulls okay, no nausea, no vomiting or abdomen pain. Objective Vitals I&O Vital Signs Date Time Temp Pulse Resp B/P Pulse Ox O2 Delivery O2 Flow Rate FiO2 07/18/16 04:19 97.9 80 18 115/55 94 07/17/16 23:36 97.9 82 18 118/54 93 07/17/16 19:53 97.9 78 18 118/61 94 07/17/16 15:38 97.9 88 20 100/55 95 07/17/16 12:00 97.4 79 20 98/54 92 I/O 07/17/16 07/17/16 07/17/16 07/18/16 07/18/16 07/18/16 07:00 15:00 23:00 07:00 15:00 23:00 Intake Total 600 ml Balance 600 ml Intake Oral 600 ml # Voids 1 3 2 1 Laboratory Laboratory Tests Test 07/17/16 07/18/16 10:36 04:26 White Blood Count 6.3 Red Blood Count 4.27 Hemoglobin 12.4 Hematocrit 37.9 Mean Corpuscular Volume 88.6 Mean Corpuscular Hemoglobin 29.1 Mean Corpuscular Hemoglobin 32.8 Concent Red Cell Distribution Width 13.9 Platelet Count 142 Mean Platelet Volume 10.2 Neutrophils (%) (Auto) 68.3 Lymphocytes (%) (Auto) 15.9 Monocytes (%) (Auto) 12.0 Eosinophils (%) (Auto) 3.0 Basophils (%) (Auto) 0.8 Neutrophils # (Auto) 4.3 Lymphocytes # (Auto) 1.0 Monocytes # (Auto) 0.8 Eosinophils # (Auto) 0.2 Basophils # (Auto) 0.1 CBC Comment AUTO DIFF Differential Comment AUTO DIFF CONFIRMED Platelet Estimate LOW Platelet Morphology Comment NORMAL Hematology Comments Sodium Level 137 141 Potassium Level 3.7 4.0 Chloride Level 110 111 Carbon Dioxide Level 17.2 23.0 Anion Gap 10 7 Blood Urea Nitrogen 20 13 Creatinine 1.07 0.90 Estimat Glomerular Filtration 50 61 Rate Random Glucose 105 85 Calcium Level 8.4 8.1 Total Bilirubin 0.4 Aspartate Amino Transf 19 (AST/SGOT) Alanine Aminotransferase 17 (ALT/SGPT) Alkaline Phosphatase 83 Total Protein 7.2 Albumin 3.1 Date/Time Procedure Status Source Growth 07/16/16 19:45 Aerobic Blood Culture - Preliminary Resulted Blood Peripheral NO GROWTH IN 1 DAY 07/16/16 19:45 Anaerobic Blood Culture - Preliminary Resulted Blood Peripheral NO GROWTH IN 1 DAY Imaging Last Impressions Chest X-Ray 07/16/161923 Signed Impressions: Service Date/Time: Saturday, July 16, 2016 19:43 - CONCLUSION: No acute disease Anuj Osborne MD Abdomen/Pelvis CT 07/16/161923 Signed Impressions: Service Date/Time: Saturday, July 16, 2016 20:54 - CONCLUSION: Abnormal appearance of the GE junction as above. Anuj Osborne MD Head CT 07/16/16 0000 Signed Impressions: Service Date/Time: Saturday, July 16, 2016 20:38 - CONCLUSION: Normal examination. Anuj Osborne MD Physical Exam HEENT: normocephalic; atraumatic; no jaundice. NECK: Neck is supple, no JVD, no lymphadenopathy. CHEST: Chest is clear to auscultation and percussion. CARDIAC: Regular rate and rhythm with no murmur gallop or rubs. ABDOMEN: Soft, nondistended, nontender; no hepatosplenomegaly; bowel sounds are present in all four quadrants. EXTREMITIES: No clubbing, cyanosis, or edema. SKIN: Normal; no rash; no jaundice. ASSEMBLER METAL BUILDING: No focal deficits; alert and oriented times three. Assessment and Plan Plan - Intractable Nausea/Vomiting X one day- Tolerating fulls okay, no vomiting since yesterday Was evaluated by ST and recommended soft and thin liquid diet, no signs of aspiration CT Abd/Pelvis w/ no acute findings except for possible GE junction mass - Esophageal Mass- CT Abd/Pelvis w/ abnormal findings at GE junction, w/ possible mucosal mass, no history of similar findings. - Renal Insufficiency- possibly secondary to dehydration Plan: - Full liquids diet - EGD tomorrow - Obtain consents - NPO mn - Supportive care - Patient seen and examined by Dr. Michelle and myself and this note is written on his behalf. Randi Vargas Jul 18, 2016 08:46
[2016-07-18] MEDS: BETAMETHASONE DIPROPIONATE 0.05% OINT 15 GM TUBE TOPICAL SCH ×2 (09:00→21:00)
[2016-07-18] MEDS: SODIUM CHLORIDE 0.9% FLUSH 10 ML FLUSH IV FLUSH SCH ×2 (09:00→21:21)
[2016-07-18] MEDS: COLLAGENASE OINT 30 GM TUBE TOPICAL SCH (09:00)
[2016-07-18] MEDS: FLUOCINOLONE ACETONIDE 0.01% CR 15 GM TUBE TOPICAL SCH ×2 (09:00→21:00)
--- NOTE | 2016-07-18 10:07 | HHI.PR ---
Subjective Remarks Follow up for dehydration secondary to nausea and vomiting. Patient seen and examined by myself and Dr. Perez. Patient denies any new acute complaints. No recent fever, chills or chest pain. Ambulates independently, patient out of bed to use restroom. Objective Vitals Vital Signs Date Time Temp Pulse Resp B/P Pulse Ox O2 Delivery O2 Flow Rate FiO2 07/18/16 08:00 97.8 83 20 100/51 98 07/18/16 04:19 97.9 80 18 115/55 94 07/17/16 23:36 97.9 82 18 118/54 93 07/17/16 19:53 97.9 78 18 118/61 94 07/17/16 15:38 97.9 88 20 100/55 95 07/17/16 12:00 97.4 79 20 98/54 92 I/O 07/17/16 07/17/16 07/17/16 07/18/16 07/18/16 07/18/16 07:00 15:00 23:00 07:00 15:00 23:00 Intake Total 600 ml Balance 600 ml Intake Oral 600 ml # Voids 1 3 2 1 Result Diagram: 07/17/16 1036 07/18/16 0426 Imaging Last Impressions Chest X-Ray 07/16/161923 Signed Impressions: Service Date/Time: Saturday, July 16, 2016 19:43 - CONCLUSION: No acute disease Anuj Osborne MD Abdomen/Pelvis CT 07/16/161923 Signed Impressions: Service Date/Time: Saturday, July 16, 2016 20:54 - CONCLUSION: Abnormal appearance of the GE junction as above. Anuj Osborne MD Head CT 07/16/16 0000 Signed Impressions: Service Date/Time: Saturday, July 16, 2016 20:38 - CONCLUSION: Normal examination. Anuj Osborne MD Objective Remarks GENERAL: Well-nourished, well-developed elderly female patient in [facility]. SKIN: Warm and dry. No rash. HEENT: Normocephalic. Atraumatic. Pupils equal and round. No scleral icterus. Mucous membranes pink and moist. NECK: Supple. Trachea midline. CARDIOVASCULAR: Regular rate and rhythm. S1, S2 noted. No murmur appreciated. RESPIRATORY: No accessory muscle use. Clear to auscultation. Breath sounds equal bilaterally. GASTROINTESTINAL: Abdomen soft, non-tender, nondistended. Normoactive bowel sounds x4. MUSCULOSKELETAL: No obvious deformities. Extremities without clubbing, cyanosis , or edema. NEUROLOGICAL: Awake and alert. No obvious cranial nerve deficits. Motor grossly within normal limits. 5/5 muscle strength in bilateral upper and lower extremities. Normal speech. PSYCHIATRIC: Appropriate mood and affect; insight and judgment normal. Urinary Catheter: No Vascular Central Line Catheter: No A/P Problem List: (1) Intractable nausea and vomiting ICD Code: R11.2 Status: Acute (2) Esophageal mass ICD Code: K22.9 Status: Acute (3) Renal insufficiency ICD Code: N28.9 Status: Acute Assessment and Plan Ms. Portillo is a 72-year-old female with a known history of hypertension and CAD who presented to the emergency room with complaints of nausea and vomiting x 1 one day. Acute kidney injury due to dehydration secondary to nausea and vomiting: Creatinine initially 1.42, BMP in a.m. Encourage PO intake, tolerating PO intake. Continue IV fluids. Close intake and output monitoring. Zofran PRN. Blood cultures NGTD. UA negative. 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 GI consulted and following, plan for EGD on Wednesday 07/19. Swallow evaluation report reviewed, no aspiration noted. Continue protonix daily. Coronary artery disease: Status post stent placement three years ago. Pacemaker in place. Continue carvedilol, monitor heart rate and blood pressure closely. Continue aspirin. Continue telemetry. Generalized weakness: Encourage OOB with assistance. PT following. DVT prophylaxis: SCDs CODE STATUS DNR Written by Concepcion Blunt, acting as scribe for Dr. Perez on 07/18/16 at 10: 03. This note was transcribed by scribe []. I, Dr. Amena Perez personally performed the history, physical exam, and medical decision making; and confirmed the accuracy of the information in the transcribed note. Authenticated by Dr. Amena Perez on 07/18/16 at 16:22. Discharge Planning Await EGD for tomorrow and follow up GI recommendations. Concepcion Blunt Jul 18, 2016 10:07 Amena Perez MD Jul 18, 2016 16:22
[2016-07-18] MEDS: FERROUS SULFATE 325 MG (65 MG ELEMENTAL IRON) TAB PO SCH ×2 (10:31→21:21)
[2016-07-18] MEDS: busPIRone HCL 10 MG TAB PO SCH ×2 (10:31→21:21)
[2016-07-18] MEDS: PANTOPRAZOLE SOD 40 MG DELAYED RELEASE TAB PO SCH (10:31)
[2016-07-18] MEDS: traZODone HCL 50 MG TAB PO SCH ×3 (10:31→18:00)
[2016-07-18] MEDS: SERTRALINE HCL 100 MG TAB PO SCH (10:31)
[2016-07-18] MEDS: CARVEDILOL 6.25 MG TAB PO SCH ×2 (10:36→21:21)
[2016-07-18 12:00] VITALS: BP 129/60; PULSE 86; RESP 20; TEMP 95.6; O2SAT 93
[2016-07-18 16:00] VITALS: BP 130/59; PULSE 79; RESP 20; TEMP 96; O2SAT 94
[2016-07-18] MEDS: ATORVASTATIN 40 MG TAB PO SCH (21:21)
[2016-07-18] MEDS: MIRTAZAPINE 15 MG TAB PO SCH (21:21)
[2016-07-18 21:26] VITALS: BP 127/66; PULSE 99; RESP 22; TEMP 97.4; O2SAT 95
[2016-07-19 01:30] VITALS: BP 94/50; PULSE 81; RESP 17; TEMP 97.5; O2SAT 94
[2016-07-19 07:22] VITALS: BP 119/63; PULSE 89; RESP 16; TEMP 97.2; O2SAT 95
[2016-07-19] MEDS: SODIUM CHLORIDE 0.9% FLUSH 10 ML FLUSH IV FLUSH SCH ×2 (07:59→23:52)
[2016-07-19] MEDS: CARVEDILOL 6.25 MG TAB PO SCH ×2 (07:59→23:51)
[2016-07-19] MEDS ORDERED: INSULIN HUMAN REGULAR 1,000 UNITS/10 ML VIAL SQ PRN (08:30)
[2016-07-19] MEDS ORDERED: LACTATED RINGER'S 1000 ML IV PRN (08:30)
[2016-07-19] MEDS ORDERED: SODIUM CHLORID 0.9% 500 ML IV PRN (08:30)
[2016-07-19] MEDS ORDERED: CHLORHEXIDINE GLUCONATE 2 % 1 PACK (2 CLOTHS) TOPICAL PRN (08:30)
[2016-07-19] MEDS ORDERED: POVIDONE IODINE 5% (ANTISEPSIS KIT) 4 APPLICATIONS EACH NARE PRN (08:30)
[2016-07-19] MEDS ORDERED: METOPROLOL TARTRATE 25 MG TAB PO PRN (08:30)
[2016-07-19 08:34] VITALS: BP 119/63; PULSE 89; RESP 16; TEMP 97.2; O2SAT 95
[2016-07-19] MEDS: busPIRone HCL 10 MG TAB PO SCH ×2 (09:00→23:51)
[2016-07-19] MEDS: SERTRALINE HCL 100 MG TAB PO SCH (09:00)
[2016-07-19] MEDS: BETAMETHASONE DIPROPIONATE 0.05% OINT 15 GM TUBE TOPICAL SCH (09:00)
[2016-07-19] MEDS: FERROUS SULFATE 325 MG (65 MG ELEMENTAL IRON) TAB PO SCH ×2 (09:00→23:52)
[2016-07-19] MEDS: traZODone HCL 50 MG TAB PO SCH ×3 (09:00→18:00)
[2016-07-19] MEDS: COLLAGENASE OINT 30 GM TUBE TOPICAL SCH (09:00)
[2016-07-19] MEDS: FLUOCINOLONE ACETONIDE 0.01% CR 15 GM TUBE TOPICAL SCH (09:00)
[2016-07-19] MEDS: PANTOPRAZOLE SOD 40 MG DELAYED RELEASE TAB PO SCH (09:00)
[2016-07-19] MEDS ORDERED: PROPOFOL 200 MG/20 ML AMP IV ONE (09:45)
[2016-07-19] MEDS: SODIUM CHLOR 0.9% 1000 ML INJ 1,000 ML IV SCH (09:52)
--- NOTE | 2016-07-19 10:47 | GIPROC ---
[facility] [address] [facility]. [facility], [address] EGD WITH HALO PROCEDURE REPORT EXAM DATE: 07/19/2016 PATIENT NAME: Madonna Portillo MR #: [id number] BIRTHDATE: 1935 ORDER #: [id number] ATTENDING: Savannah Newby MD [address] ATTENDANT: Doroteo Burdick Stienbarger, Terrie, and Roz Meade STATUS: inpatient INDICATIONS: The patient is a 80 yr old female here for an EGD due to nausea, vomiting, abnormal ct , diarrhea PROCEDURE PERFORMED: EGD w/ biopsy MEDICATIONS: None and Per Anesthesia. TOPICAL ANESTHETIC: none CONSENT: The patient understands the risks and benefits of the procedure and understands that these risks include, but are not limited to: sedation, allergic reaction, infection, perforation and/or bleeding. Alternative means of evaluation and treatment include, among others: physical exam, x-rays, and/or surgical intervention. The patient elects to proceed with this endoscopic procedure. DESCRIPTION OF PROCEDURE: checked for proper function. Hand hygiene and appropriate measures for infection prevention was taken. After the risks, benefits and alternatives of the procedure were thoroughly explained, Informed consent was verified, confirmed and timeout was successfully executed by the treatment team. The Pentax [id number] endoscope was introduced through the mouth and advanced to the second portion of the duodenum. The mucosa was examined both on insertion and withdrawal. Retroflexion was performed in the gastric fundus. Rest of the findings are given below. The patient tolerated the procedure well and was sent to Recovery in stable condition. Gastritis antrum-biopsy [id number] retroflexion-hiatal hernia-medium, no mass was seen esophagitis distal esophagus-biopsy. ADVERSE EVENTS: There were no complications. IMPRESSIONS: 1. Reflux esophagitis 2. Hiatus hernia 3.gastrtis antrum RECOMMENDATIONS: 1. Await biopsy results. Biopsy results will not be ready for 7-10 days. If you don't hear from us in two weeks, call our office for biopsy results. 2. Anti-reflux regimen 3. Continue PPI 4. Avoid nsaids ok to dc home from [facility] REPEAT EXAM: EGD pending biopsy results Savannah Newby MD eSigned: Savannah Newby MD 07/19/2016 10:47 AM cc: PATIENT NAME: Madonna Portillo MR#: [id number]
[2016-07-19 10:58] VITALS: BP 137/63; PULSE 75; RESP 16; TEMP 96.2; O2SAT 96
--- NOTE | 2016-07-19 14:10 | HHI.PR ---
Subjective Remarks Follow up for dehydration secondary to nausea and vomiting. Patient seen and examined today. Patient denies any new acute complaints. No recent fever, chills or chest pain. Denies pain. Patient did go this Am to EGD with Dr. Newby. Slightly confused about the month, but able to state name and year, and was unsure if she went to the EGD yet, may be anaesthesia related. Objective Vitals Vital Signs Date Time Temp Pulse Resp B/P Pulse Ox O2 Delivery O2 Flow Rate FiO2 07/19/16 10:02 80 18 107/68 98 07/19/16 09:52 97.7 82 18 91/63 97 07/19/16 08:34 97.2 89 16 119/63 95 07/19/16 07:22 97.2 89 16 119/63 95 07/19/16 01:30 97.5 81 17 94/50 94 07/18/16 21:26 97.4 99 22 127/66 95 07/18/16 16:00 96.0 79 20 130/59 94 I/O 07/18/16 07/18/16 07/18/16 07/19/16 07/19/16 07/19/16 07:00 15:00 23:00 07:00 15:00 23:00 Intake Total 480 ml 1190 ml 100 ml Balance 480 ml 1190 ml 100 ml Intake Oral 480 ml 480 ml IV Total 710 ml Other 100 ml # Voids 7 2 # Bowel Movements 0 0 Result Diagram: 07/17/16 1036 07/18/16 0426 Imaging Last Impressions Chest X-Ray 07/16/161923 Signed Impressions: Service Date/Time: Saturday, July 16, 2016 19:43 - CONCLUSION: No acute disease Anuj Osborne MD Abdomen/Pelvis CT 07/16/161923 Signed Impressions: Service Date/Time: Saturday, July 16, 2016 20:54 - CONCLUSION: Abnormal appearance of the GE junction as above. Anuj Osborne MD Head CT 07/16/16 0000 Signed Impressions: Service Date/Time: Saturday, July 16, 2016 20:38 - CONCLUSION: Normal examination. Anuj Osborne MD Objective Remarks GENERAL: Well-nourished, well-developed elderly female patient in [facility]. SKIN: Warm and dry. No rash. HEENT: Normocephalic. Atraumatic. Pupils equal and round. No scleral icterus. Mucous membranes pink and moist. NECK: Supple. Trachea midline. CARDIOVASCULAR: Regular rate and rhythm. S1, S2 noted. No murmur appreciated. RESPIRATORY: No accessory muscle use. Clear to auscultation. Breath sounds equal bilaterally. GASTROINTESTINAL: Abdomen soft, non-tender, nondistended. Normoactive bowel sounds x4. MUSCULOSKELETAL: No obvious deformities. Extremities without clubbing, cyanosis , or edema. NEUROLOGICAL: Awake and alert. No obvious cranial nerve deficits. Motor grossly within normal limits. Normal speech. PSYCHIATRIC: Appropriate mood and affect; insight and judgment normal. Medications and IVs Current Medications Medications (Trade) Dose Ordered Sig/Re Route Start Time Stop Time Status Last Admin (NS 1000 ml Inj) 1,000 ml @ 100 mls/hr Q10H IV 07/16/16 21:52 07/18/16 13:35 (NS Flush) 2 ml UNSCH PRN IV FLUSH 07/16/16 22:00 (NS Flush) 2 ml BID IV FLUSH 07/17/16 09:00 07/19/16 07:59 (Zofran Inj) 4 mg Q6H PRN IVP 07/16/16 22:00 (Dulcolax Supp) 10 mg DAILY PRN RECTAL 07/16/16 22:00 (Tylenol) 650 mg Q6H PRN PO 07/16/16 22:00 ([place] 5-325 Mg) 1 tab Q4H PRN PO 07/16/16 22:00 (Morphine Inj) 2 mg Q3H PRN IV 07/16/16 22:00 (Lipitor) 40 mg HS PO 07/17/16 21:00 07/18/16 21:21 (Buspar) 10 mg BID PO 07/17/16 09:00 07/18/16 21:21 (Coreg) 6.25 mg BID PO 07/17/16 09:00 07/19/16 07:59 (Santyl Oint) 1 applic DAILY TOPICAL 07/17/16 09:00 (Remeron) 15 mg HS PO 07/17/16 21:00 07/18/16 21:21 (Protonix) 40 mg DAILY PO 07/17/16 09:00 07/18/16 10:31 (Zoloft) 100 mg DAILY PO 07/17/16 09:00 07/18/16 10:31 (Desyrel) 50 mg TID PO 07/17/16 09:00 07/19/16 13:58 (Synalar 0.01% Cream) 1 applic BID TOPICAL 07/17/16 09:00 07/17/16 21:12 (Diprosone 0.05% Ointment) 1 applic BID TOPICAL 07/17/16 09:00 07/17/16 21:12 Ferrous Sulfate 325 mg 325 mg BID PO 07/17/16 09:00 07/18/16 21:21 Lactated Ringer's 1,000 ml @ 30 mls/hr Q24H PRN IV 07/19/16 08:30 07/22/16 08:29 (NS 500 ml Inj) 500 ml @ 30 mls/hr [id number] PRN IV 07/19/16 08:30 07/22/16 08:29 Urinary Catheter: No Vascular Central Line Catheter: No A/P Problem List: (1) Intractable nausea and vomiting ICD Code: R11.2 Status: Acute (2) Esophageal mass ICD Code: K22.9 Status: Acute (3) Renal insufficiency ICD Code: N28.9 Status: Acute Assessment and Plan Ms. Portillo is a 72-year-old female with a known history of hypertension and CAD who presented to the emergency room with complaints of nausea and vomiting x 1 one day. Acute kidney injury due to dehydration secondary to nausea and vomiting: Creatinine initially 1.42, BMP in a.m. Encourage PO intake, tolerating PO intake. Continue IV fluids. Close intake and output monitoring. Zofran PRN. Blood cultures NGTD. UA negative. 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 GI has cleared patient for DC, EGD on Wednesday 07/19 showed reflux gastritis, and biopsy pending. Recommendations include cont PPI and avoid NSAIDs. Swallow evaluation report reviewed, no aspiration noted. Continue protonix daily. Coronary artery disease: Status post stent placement three years ago. Pacemaker in place. Continue carvedilol, monitor heart rate and blood pressure closely. Continue aspirin. Continue telemetry. Generalized weakness: Encourage OOB with assistance. PT following. Confusion, slightly, maybe related to anaesthesia: neuro checks, cont to monitor. DVT prophylaxis: SCDs CODE STATUS DNR Written by GERSON Hernandez acting as scribe for Dr. Perez on 07/19/16 at 13: 55. Attending Statement This note was transcribed by scribe Amber Beltre. I, Dr. Amena Perez personally performed the history, physical exam, and medical decision making; and confirmed the accuracy of the information in the transcribed note. Authenticated by Dr. Amena Perez on 07/20/16 at 18:15. Amber Beltre Jul 19, 2016 14:10 Amena Perez MD Jul 20, 2016 18:15
[2016-07-19 15:40] VITALS: BP 140/65; PULSE 80; RESP 16; TEMP 98.3; O2SAT 97
[2016-07-19 19:00] VITALS: BP 111/86; PULSE 84; RESP 16; TEMP 98.4; O2SAT 97
[2016-07-19] MEDS: ACETAMINOPHEN 325 MG TAB PO PRN (19:09)
[2016-07-19] MEDS: ATORVASTATIN 40 MG TAB PO SCH (23:51)
[2016-07-19] MEDS: MIRTAZAPINE 15 MG TAB PO SCH (23:51)
[2016-07-20 00:25] VITALS: BP 116/78; PULSE 68; RESP 17; TEMP 96.8; O2SAT 97
[2016-07-20 04:24] VITALS: BP 103/64; PULSE 73; RESP 16; TEMP 96.1; O2SAT 97
[2016-07-20 07:32] VITALS: BP 136/76; PULSE 75; RESP 18; TEMP 95.8; O2SAT 96
[2016-07-20] MEDS: SERTRALINE HCL 100 MG TAB PO SCH (09:00)
[2016-07-20] MEDS: busPIRone HCL 10 MG TAB PO SCH ×2 (09:00→20:23)
[2016-07-20] MEDS: traZODone HCL 50 MG TAB PO SCH ×3 (09:00→16:57)
[2016-07-20] MEDS: PANTOPRAZOLE SOD 40 MG DELAYED RELEASE TAB PO SCH (10:52)
[2016-07-20] MEDS: CARVEDILOL 6.25 MG TAB PO SCH ×3 (10:52→20:27)
[2016-07-20] MEDS: FERROUS SULFATE 325 MG (65 MG ELEMENTAL IRON) TAB PO SCH ×2 (10:52→20:23)
[2016-07-20] MEDS: SODIUM CHLORIDE 0.9% FLUSH 10 ML FLUSH IV FLUSH SCH ×2 (10:54→20:23)
[2016-07-20] MEDS: SODIUM CHLOR 0.9% 1000 ML INJ 1,000 ML IV SCH ×2 (10:55→12:38)
[2016-07-20] MEDS: FLUOCINOLONE ACETONIDE 0.01% CR 15 GM TUBE TOPICAL SCH ×2 (10:58→20:25)
[2016-07-20] MEDS: BETAMETHASONE DIPROPIONATE 0.05% OINT 15 GM TUBE TOPICAL SCH ×2 (10:58→20:24)
[2016-07-20] MEDS: COLLAGENASE OINT 30 GM TUBE TOPICAL SCH (10:58)
[2016-07-20] MEDS: ACETAMINOPHEN 325 MG TAB PO PRN (11:15)
[2016-07-20 11:41] VITALS: BP 137/67; PULSE 84; RESP 18; TEMP 95.6; O2SAT 94
--- NOTE | 2016-07-20 15:29 | HHI.PR ---
Subjective Remarks Follow up for dehydration, nausea/vomiting. The patient reports feeling better today. She states she is eating well, no nausea/vomiting. She does not feel ready for discharge today, but maybe tomorrow. She has no other medical complaints at this time. Objective Vitals Vital Signs Date Time Temp Pulse Resp B/P Pulse Ox O2 Delivery O2 Flow Rate FiO2 07/20/16 11:41 95.6 84 18 137/67 94 07/20/16 07:32 95.8 75 18 136/76 96 07/20/16 04:24 96.1 73 16 103/64 97 07/20/16 00:25 96.8 68 17 116/78 97 07/19/16 19:00 98.4 84 16 111/86 97 07/19/16 15:40 98.3 80 16 140/65 97 I/O 07/19/16 07/19/16 07/19/16 07/20/16 07/20/16 07/20/16 07:00 15:00 23:00 07:00 15:00 23:00 Intake Total 1190 ml 760 ml 200 ml 480 ml 540 ml Balance 1190 ml 760 ml 200 ml 480 ml 540 ml Intake Oral 480 ml 660 ml 200 ml 480 ml 480 ml IV Total 710 ml 60 ml Other 100 ml # Voids 2 3 3 3 2 # Bowel Movements 0 0 0 0 0 Result Diagram: 07/17/16 1036 07/18/16 0426 Imaging Last Impressions Chest X-Ray 07/16/161923 Signed Impressions: Service Date/Time: Saturday, July 16, 2016 19:43 - CONCLUSION: No acute disease Anuj Osborne MD Abdomen/Pelvis CT 07/16/161923 Signed Impressions: Service Date/Time: Saturday, July 16, 2016 20:54 - CONCLUSION: Abnormal appearance of the GE junction as above. Anuj Osborne MD Head CT 07/16/16 0000 Signed Impressions: Service Date/Time: Saturday, July 16, 2016 20:38 - CONCLUSION: Normal examination. Anuj Osborne MD Objective Remarks GENERAL: Well-nourished, well-developed elderly female patient in [facility]. SKIN: Warm and dry. No rash. HEENT: Normocephalic. Atraumatic. Pupils equal and round. No scleral icterus. Mucous membranes pink and moist. NECK: Supple. Trachea midline. CARDIOVASCULAR: Regular rate and rhythm. S1, S2 noted. No murmur appreciated. RESPIRATORY: No accessory muscle use. Clear to auscultation. Breath sounds equal bilaterally. GASTROINTESTINAL: Abdomen soft, non-tender, nondistended. Normoactive bowel sounds x4. MUSCULOSKELETAL: No obvious deformities. Extremities without clubbing, cyanosis , or edema. NEUROLOGICAL: Awake and alert. No obvious cranial nerve deficits. Motor grossly within normal limits. Normal speech. PSYCHIATRIC: Appropriate mood and affect; insight and judgment normal. Medications and IVs Current Medications Medications (Trade) Dose Ordered Sig/Re Route Start Time Stop Time Status Last Admin (NS Flush) 2 ml UNSCH PRN IV FLUSH 07/16/16 22:00 (NS Flush) 2 ml BID IV FLUSH 07/17/16 09:00 07/20/16 10:54 (Zofran Inj) 4 mg Q6H PRN IVP 07/16/16 22:00 07/20/16 11:15 (Dulcolax Supp) 10 mg DAILY PRN RECTAL 07/16/16 22:00 (Tylenol) 650 mg Q6H PRN PO 07/16/16 22:00 07/20/16 11:15 ([place] 5-325 Mg) 1 tab Q4H PRN PO 07/16/16 22:00 (Morphine Inj) 2 mg Q3H PRN IV 07/16/16 22:00 (Lipitor) 40 mg HS PO 07/17/16 21:00 07/19/16 23:51 (Buspar) 10 mg BID PO 07/17/16 09:00 07/19/16 23:51 (Coreg) 6.25 mg BID PO 07/17/16 09:00 07/20/16 10:52 (Santyl Oint) 1 applic DAILY TOPICAL 07/17/16 09:00 07/20/16 10:58 (Remeron) 15 mg HS PO 07/17/16 21:00 07/19/16 23:51 (Protonix) 40 mg DAILY PO 07/17/16 09:00 07/20/16 10:52 (Zoloft) 100 mg DAILY PO 07/17/16 09:00 07/18/16 10:31 (Desyrel) 50 mg TID PO 07/17/16 09:00 07/20/16 11:54 (Synalar 0.01% Cream) 1 applic BID TOPICAL 07/17/16 09:00 07/20/16 10:58 (Diprosone 0.05% Ointment) 1 applic BID TOPICAL 07/17/16 09:00 07/20/16 10:58 Ferrous Sulfate 325 mg 325 mg BID PO 07/17/16 09:00 07/20/16 10:52 Lactated Ringer's 1,000 ml @ 30 mls/hr Q24H PRN IV 07/19/16 08:30 07/22/16 08:29 (NS 500 ml Inj) 500 ml @ 30 mls/hr [id number] PRN IV 07/19/16 08:30 07/22/16 08:29 A/P Problem List: (1) Intractable nausea and vomiting ICD Code: R11.2 Status: Acute (2) Esophageal mass ICD Code: K22.9 Status: Acute (3) Renal insufficiency ICD Code: N28.9 Status: Acute Assessment and Plan Ms. Portillo is a 72-year-old female with a known history of hypertension and CAD who presented to the emergency room with complaints of nausea and vomiting x 1 one day. Acute kidney injury due to dehydration secondary to nausea and vomiting: Creatinine initially 1.42, given IVF, repeat BMP with improvement Cr 0.90. Encouraged PO intake, tolerating PO intake. Discontinue IV fluids. Close intake and output monitoring. Zofran PRN. Blood cultures NGTD. UA negative. Resolved. 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 GI has cleared patient for DC, EGD on Wednesday 07/19 showed reflux gastritis, and biopsy pending. Recommendations include cont PPI and avoid NSAIDs. Swallow evaluation report reviewed, no aspiration noted. Continue protonix daily. Coronary artery disease: Status post stent placement three years ago. Pacemaker in place. Continue carvedilol, monitor heart rate and blood pressure closely. Continue aspirin. Continue telemetry. Generalized weakness: Encourage OOB with assistance. PT following, patient going to [facility] at discharge Confusion, slightly, maybe related to anaesthesia: neuro checks, cont to monitor. Improved today. DVT prophylaxis: SCDs CODE STATUS DNR Written by Dyan Reyes, acting as scribe for Dr. Perez on 07/20/16 at 15: 10. Discharge Planning Plan to discharge to [facility] tomorrow. Attending Statement This note was transcribed by leslie Reyes. I, Dr. Amena Perez personally performed the history, physical exam, and medical decision making; and confirmed the accuracy of the information in the transcribed note. Dyan Reyes PA-C Jul 20, 2016 15:28 Amena Preez MD Jul 20, 2016 19:10
--- NOTE | 2016-07-20 15:30 | HHI.FF ---
Face to Face Verification Diagnosis: (1) Nausea and vomiting (2) Abnormal CT of the abdomen (3) Intractable nausea and vomiting (4) Generalized weakness (5) Gastritis Physical Therapy Order: Evaluate and Treat Occupational Therapy Order: Evaluate and Treat, Improve ADL Home Health Nursing Order: Medical education Nursing assessment with vital signs I have seen patient Madonna Portillo on 07/20/16. My clinical findings support the need for the requested home health care services because: Impaired cognition/judgement I certify that my clinical findings support that this patient is homebound because: Impaired cognitive ability/safety Unsteady gait/balance Amena Perez MD Jul 20, 2016 15:30
[2016-07-20 15:58] VITALS: BP 110/59; PULSE 75; RESP 18; TEMP 97.2; O2SAT 96
[2016-07-20 19:06] VITALS: BP 106/50; PULSE 86; RESP 18; TEMP 96.4; O2SAT 96
[2016-07-20] MEDS: MIRTAZAPINE 15 MG TAB PO SCH (20:23)
[2016-07-20] MEDS: ATORVASTATIN 40 MG TAB PO SCH (20:23)
[2016-07-21 00:10] VITALS: BP 109/56; PULSE 83; RESP 16; TEMP 97.1; O2SAT 92
[2016-07-21 08:00] VITALS: BP 134/69; PULSE 99; RESP 20; TEMP 95; O2SAT 97
[2016-07-21] MEDS: busPIRone HCL 10 MG TAB PO SCH (08:50)
[2016-07-21] MEDS: FERROUS SULFATE 325 MG (65 MG ELEMENTAL IRON) TAB PO SCH (08:50)
[2016-07-21] MEDS: CARVEDILOL 6.25 MG TAB PO SCH (08:50)
[2016-07-21] MEDS: PANTOPRAZOLE SOD 40 MG DELAYED RELEASE TAB PO SCH (08:50)
[2016-07-21] MEDS: traZODone HCL 50 MG TAB PO SCH (08:50)
[2016-07-21] MEDS: SERTRALINE HCL 100 MG TAB PO SCH (08:50)
[2016-07-21] MEDS: SODIUM CHLORIDE 0.9% FLUSH 10 ML FLUSH IV FLUSH SCH (08:51)
[2016-07-21] MEDS: BETAMETHASONE DIPROPIONATE 0.05% OINT 15 GM TUBE TOPICAL SCH (08:53)
[2016-07-21] MEDS: FLUOCINOLONE ACETONIDE 0.01% CR 15 GM TUBE TOPICAL SCH (08:55)
[2016-07-21] MEDS: COLLAGENASE OINT 30 GM TUBE TOPICAL SCH (08:55)
--- NOTE | 2016-07-21 10:49 | HHI.DCPOC ---
Discharge Care Plan Diagnosis: (1) Nausea and vomiting (2) Esophageal mass Goals to Promote Your Health * To prevent worsening of your condition and complications * To maintain your health at the optimal level Directions to Meet Your Goals Take your medications as prescribed Follow your dietary instruction Follow activity as directed Keep your appointments as scheduled Take your immunizations and boosters as scheduled If your symptoms worsen call your PCP, if no PCP go to Urgent Care Center or Emergency Room Smoking is Dangerous to Your Health. Avoid second hand smoke Call the 24-hour hour crisis hotline for domestic abuse at Amber Beltre Jul 21, 2016 10:48
--- NOTE | 2016-07-21 10:50 | HHI.DS ---
Amber Beltre [facility] 07/21/16 1050: Discharge Summary Admission Date Jul 17, 2016 at 08:52 Discharge Date: Jul 21, 2016 Admitting Diagnosis persistent nausea and vomiting, abnormal CT abdomen (1) Intractable nausea and vomiting Diagnosis: Principal (2) Esophageal mass Diagnosis: Principal (3) Renal insufficiency Diagnosis: Principal Procedures EGD on 07/19/16, awaiting biopsy results Brief History This is a 80 year old female with a PMH of Anxiety, Dementia, HTN and CAD who was sent to the ER from [facility] secondary to nausea and vomiting. Reports approx. 5 episodes of emesis, this was bile, non bloody. She also endorses diarrhea that started around the same time as well. She denies hematemesis, abdomen pain , hematochezia, melena, fever or chills. She denies previous history of this. CT Abd/Pelvis w/ abnormal appearance of GE junction with lobular mixed density process appearing to protrude in the fundus from GE junction also involving the distal esophagus, possibly mucosal mass. CBC/BMP: 07/17/16 1036 07/18/16 0426 Significant Findings EGD with Dr. Newby with results of Reflux esophagitis, Hiatus hernia and gastritis antrum, biopsy was taken, currently pending. Imaging Last Impressions Chest X-Ray 07/16/161923 Signed Impressions: Service Date/Time: Saturday, July 16, 2016 19:43 - CONCLUSION: No acute disease Anuj Osborne MD Abdomen/Pelvis CT 07/16/161923 Signed Impressions: Service Date/Time: Saturday, July 16, 2016 20:54 - CONCLUSION: Abnormal appearance of the GE junction as above. Anuj Osborne MD Head CT 07/16/16 0000 Signed Impressions: Service Date/Time: Saturday, July 16, 2016 20:38 - CONCLUSION: Normal examination. Anuj Osborne MD PE at Discharge Patient is well, denies any nausea or vomiting and is eating well. SKIN: Warm and dry. No rash. HEENT: Normocephalic. Atraumatic. Pupils equal and round. No scleral icterus. Mucous membranes pink and moist. NECK: Supple. Trachea midline. CARDIOVASCULAR: Regular rate and rhythm. S1, S2 noted. No murmur appreciated. RESPIRATORY: No accessory muscle use. Clear to auscultation. Breath sounds equal bilaterally. GASTROINTESTINAL: Abdomen soft, non-tender, nondistended. Normoactive bowel sounds x4. MUSCULOSKELETAL: No obvious deformities. Extremities without clubbing, cyanosis , or edema. NEUROLOGICAL: Awake and alert. No obvious cranial nerve deficits. Motor grossly within normal limits. Normal speech. PSYCHIATRIC: Appropriate mood and affect; insight and judgment normal. Hospital Course Patient came in with nausea and vomiting. Patient had an acute kidney injury due to dehydration from nausea and vomiting. Creatine improved from 1.4 to .9. PO intake improved. 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 Abdominal/ pelvis CT report reviewed, abnormal appearance of the GE junction. GI has cleared patient for DC, EGD on Wednesday 07/19 showed reflux gastritis, and biopsy pending. Recommendations include cont PPI and avoid NSAIDs. Patient had some generalized weakness, worked with PT in hospital, and will continue at [facility]. She was slightly confused post EGD and anaesthesia, but since then she has improved to A&Ox3. Patient seen today and denies any nausea and vomiting or abdominal pain. She sates she is eating well and feels good. Written by GERSON Hernandez acting as scribe for Dr. Perez on 07/21/16 at 10: 33 Pt Condition on Discharge: Stable Discharge Disposition: [facility] with [facility] Discharge Instructions DIET: Follow Instructions for: As Tolerated, No Restrictions Activities you can perform: Regular-No Restrictions Follow up Referrals: Gastroenterology - 1 Week with Savannah Newby MD [facility]/ with Meseret Martin [phone] Continued Medications: Aspirin (Aspirin) 81 Mg Tabdr 81 MG PO DAILY TAB Atorvastatin (Atorvastatin) 40 Mg Tab 40 MG PO HS Cholesterol Management #30 Ref 0 TAB Buspirone (Buspirone) 10 Mg Tab 10 MG PO BID Anxiety Ref 0 TAB Calcium Carbonate-Cholecalciferol (Calcium 500 +D) 500-400 Mg-Unit Tab 1 TAB PO BID Calcium Supplement Ref 0 TAB Carvedilol (Carvedilol) 6.25 Mg Tab 6.25 MG PO BID #60 Ref 0 TAB Clobetasol Topical (Clobetasol Topical) 0.05% Cream 1 APPLIC TOPICAL BID #30 Ref 0 GM Collagenase Topical (Santyl Topical) 250 Unit/Gm Oint 1 APPLIC TOPICAL DAILY Wound Management #15 Ref 0 GM Ferrous Sulfate (Ferosul) 220 Mg/5 Ml [place] 325 MG PO BID Levocetirizine (Levocetirizine) 5 Mg Tab 5 MG PO DAILY Allergy Management #30 Ref 0 TAB Mirtazapine (Mirtazapine) 15 Mg Tab 15 MG PO HS Depression Control #30 Ref 0 TAB Pantoprazole (Pantoprazole) 40 Mg Tab 40 MG PO DAILY Reflux #30 Ref 0 TAB Sertraline (Sertraline) 100 Mg Tab 100 MG PO DAILY #30 Ref 0 TAB Trazodone (Trazodone) 50 Mg Tab 50 MG PO TID Control Depression #90 Ref 0 TAB Triamcinolone Topical (Triamcinolone Topical) 0.025 % Oint 1 APPLIC TOPICAL BID Inflammation Ref 0 GM Amena Perez MD 07/23/16 1340: Discharge Summary CBC/BMP: 07/17/16 1036 07/18/16 0426 Discharge Instructions Follow up Referrals: Gastroenterology - 1 Week with Savannah Newby MD [facility]/ with Meseret Martin [phone] Continued Medications: Aspirin (Aspirin) 81 Mg Tabdr 81 MG PO DAILY TAB Atorvastatin (Atorvastatin) 40 Mg Tab 40 MG PO HS Cholesterol Management #30 Ref 0 TAB Buspirone (Buspirone) 10 Mg Tab 10 MG PO BID Anxiety Ref 0 TAB Calcium Carbonate-Cholecalciferol (Calcium 500 +D) 500-400 Mg-Unit Tab 1 TAB PO BID Calcium Supplement Ref 0 TAB Carvedilol (Carvedilol) 6.25 Mg Tab 6.25 MG PO BID #60 Ref 0 TAB Clobetasol Topical (Clobetasol Topical) 0.05% Cream 1 APPLIC TOPICAL BID #30 Ref 0 GM Collagenase Topical (Santyl Topical) 250 Unit/Gm Oint 1 APPLIC TOPICAL DAILY Wound Management #15 Ref 0 GM Ferrous Sulfate (Ferosul) 220 Mg/5 Ml [place]x 325 MG PO BID Levocetirizine (Levocetirizine) 5 Mg Tab 5 MG PO DAILY Allergy Management #30 Ref 0 TAB Mirtazapine (Mirtazapine) 15 Mg Tab 15 MG PO HS Depression Control #30 Ref 0 TAB Pantoprazole (Pantoprazole) 40 Mg Tab 40 MG PO DAILY Reflux #30 Ref 0 TAB Sertraline (Sertraline) 100 Mg Tab 100 MG PO DAILY #30 Ref 0 TAB Trazodone (Trazodone) 50 Mg Tab 50 MG PO TID Control Depression #90 Ref 0 TAB Triamcinolone Topical (Triamcinolone Topical) 0.025 % Oint 1 APPLIC TOPICAL BID Inflammation Ref 0 GM Additional Information This note was transcribed by scribe. Witt, Dr. Amena Perez personally performed the history, physical exam, and medical decision making; and confirmed the accuracy of the information in the transcribed note. Authenticated by Dr. Amena Perez on 07/23/16 at 13:40. Amber Beltre Jul 21, 2016 10:50 Amena Perez MD Jul 23, 2016 13:40
== END 2016-07-21 11:24 | DRG 392 ==
LOC: NEPC 19:08 → NEDA 21:42 → NEPGCP 23:18 → OBSVTOIN 07-17 08:52 → N06B 07-18 22:03
PROVIDERS: ADMIT Family Medicine; ATTEND Family Medicine
PROC: 0DB68ZX Excision of Stomach, Via Natural or Artificial Opening Endoscopic, Diagnostic (ICD-10-PCS; 2016-07-19)
PROC: 0DB38ZX Excision of Lower Esophagus, Via Natural or Artificial Opening Endoscopic, Diagnostic (ICD-10-PCS; 2016-07-19)
PROC: 0DB98ZX Excision of Duodenum, Via Natural or Artificial Opening Endoscopic, Diagnostic (ICD-10-PCS; principal; 2016-07-19 09:45)
DX: K29.60 Other gastritis without bleeding (principal); N17.9 Acute kidney failure, unspecified; E86.0 Dehydration; F03.90 Unspecified dementia, unspecified severity, without behavioral disturbance, psychotic disturbance, mood disturbance, and anxiety; R11.2 Nausea with vomiting, unspecified; K21.0 Gastro-esophageal reflux disease with esophagitis; K44.9 Diaphragmatic hernia without obstruction or gangrene; I25.10 Atherosclerotic heart disease of native coronary artery without angina pectoris; Z95.5 Presence of coronary angioplasty implant and graft; Z95.0 Presence of cardiac pacemaker; I10 Essential (primary) hypertension; F41.9 Anxiety disorder, unspecified; R41.0 Disorientation, unspecified; Z66 Do not resuscitate
CPT/HCPCS: 70450; 71010; 74177; 76937; 80048; 80053; 81001; 82550; 83605; 83690; 83735; 84484; 85025; 85610; 85730; 87040; 88305; 88312; 93005; 96374; 96375; G0378; J2270; J2405; J2765; J7030; Q9967

== ENCOUNTER 2017-02-16 15:26 | Inpatient (IN) | payer MEDICARE ==
[~2017-02-16] VITALS: Ht 160 cm; Wt 65.8 kg
[2017-02-16] MEDS: SODIUM CHLOR 0.45% 1000 ML INJ 1,000 ML IV SCH (02:08)
[~2017-02-16 15:26] MED LIST: ASPI1TAB69 PO; ATOR40TA16 PO; BUSP10TA PO; CALC1TAB12 PO; CARV6.252 PO; CLOB0.055 TOPICAL; COLL30T TOPICAL; FERR220E3 PO; LEVOTAB PO; MIRTA15 PO; PANT40TA3 PO; SERT-129 PO; TRAZ50TA12 PO; TRIA0.022 TOPICAL
[2017-02-16] MEDS ORDERED: ASPI81TA81 PO (15:36)
[2017-02-16 15:50] VITALS: BP 128/59; PULSE 85; RESP 18; TEMP 98.7; O2SAT 96
--- NOTE | 2017-02-16 16:13 | PD ---
HPI Chief Complaint: GI Complaint Time Seen by Provider: 16:06 Travel History International Travel<30 days: No Contact w/Intl Traveler<30days: No Traveled to known affect area: No History of Present Illness HPI 81-year-old female presents to the emergency room for evaluation of headache, nausea, and vomiting since midnight last night. Patient she has vomited 4 or 5 times. Denies any bloody emesis. States her headache is mostly on the left side of her head and started prior to nausea and vomiting. She has associated shortness of breath like she can't get enough air in. She denies fever, chills , diarrhea, or abdominal pain. Denies chest pain. History of hypercholesterolemia, anxiety, hypertension, depression. She has a pacemaker. Patient reportedly has history of dementia and came via a back from an assisted living facility. Patient denies any trauma or injury to the head. PFSH Past Medical History Blood Disorders: No Cancer: No Cardiovascular Problems: Yes High Cholesterol: No Chest Pain: No Congestive Heart Failure: No Endocrine: No Gastrointestinal Disorders: Yes Genitourinary: No Implanted Vascular Access Dvce: Yes Musculoskeletal: No Neurologic: No Psychiatric: No Respiratory: No Tetanus Vaccination: Unknown Past Surgical History Appendectomy: Yes Body Medical Devices: pacemaker Cardiac Surgery: Yes (pacemaker ) Other Surgery: Yes (toe surgery, back surgery, appendix) Social History Alcohol Use: No Tobacco Use: No Substance Use: No Allergies-Medications (Allergen,Severity, Reaction): Coded Allergies: No Known Allergies (Unverified Allergy, Unknown, 02/16/17) Reported Meds & Prescriptions Reported Meds & Active Scripts Active Reported Aspir-81 (Aspirin) 81 Mg Tabdr 81 Mg PO DAILY Trazodone (Trazodone HCl) 50 Mg Tab 50 Mg PO TID Triamcinolone Topical 0.025 % Oint 1 Applic TOPICAL BID Sertraline (Sertraline HCl) 100 Mg Tab 100 Mg PO DAILY Santyl Topical (Collagenase) 250 Unit/Gm Oint 1 Applic TOPICAL DAILY Pantoprazole (Pantoprazole Sodium) 40 Mg Tab 40 Mg PO DAILY Mirtazapine 15 Mg Tab 15 Mg PO HS Levocetirizine 5 Mg Tab 5 Mg PO DAILY Ferosul (Ferrous Sulfate) 220 Mg/5 Ml Elx 325 Mg PO BID Clobetasol Topical (Clobetasol Propionate) 0.05% Cream 1 Applic TOPICAL BID Carvedilol 6.25 Mg Tab 6.25 Mg PO BID Calcium 500 +D (Calcium Carbonate-Cholecalciferol) 500-400 Mg-Unit Tab 1 Tab PO BID Buspirone (Buspirone HCl) 10 Mg Tab 10 Mg PO BID Atorvastatin (Atorvastatin Calcium) 40 Mg Tab 40 Mg PO HS Aspirin 81 Mg Tabdr 81 Mg PO DAILY Review of Systems Except as stated in HPI: all other systems reviewed are Neg Physical Exam Narrative GENERAL: Well-nourished, well-developed female appearing older than her stated age and in no acute distress. Afebrile. Ambulatory. SKIN: Focused skin assessment warm/dry. HEAD: Normocephalic. EYES: No scleral icterus. No injection or drainage. NECK: Supple, trachea midline. No JVD or lymphadenopathy. CARDIOVASCULAR: Regular rate and rhythm without murmurs, gallops, or rubs. RESPIRATORY: Breath sounds equal bilaterally. No accessory muscle use. No crackles, rales, wheezes, or rhonchi. GASTROINTESTINAL: Abdomen soft, non-tender, nondistended. NEUROLOGICAL: Awake and alert. Cranial nerves II through XII intact. Motor and sensory grossly within normal limits. Five out of 5 muscle strength in all muscle groups. Normal speech. No pronator drift in upper or lower extremities. Data Data Last Documented VS Vital Signs Date Time Temp Pulse Resp B/P (MAP) Pulse Ox O2 Delivery O2 Flow Rate FiO2 02/16/17 21:02 93 16 109/56 (73) 99 Nasal Cannula 2.00 02/16/17 15:50 98.7 Orders Orders Complete Blood Count With Diff (02/16/17 16:06) Comprehensive Metabolic Panel (02/16/17 16:06) Lipase (02/16/17 16:06) Lactic Acid (02/16/17 16:06) Prothrombin Time / Inr (Pt) (02/16/17 16:06) Act Partial Throm Time (Ptt) (02/16/17 16:06) Urinalysis - C+S If Indicated (02/16/17 16:06) Iv Access Insert/Monitor (02/16/17 16:06) Ecg Monitoring (02/16/17 16:06) Oximetry (02/16/17 16:06) Ondansetron Inj (Zofran Inj) (02/16/17 16:15) Sodium Chloride 0.9% Flush (Ns Flush) (02/16/17 16:15) Electrocardiogram (02/16/17 16:06) Acetaminophen (Tylenol) (02/16/17 16:15) Ct Brain W/O Iv Contrast(Rout) (02/16/17 ) Sodium Chlor 0.9% 1000 Ml Inj (Ns 1000 M (02/16/17 18:00) Ketorolac Inj (Toradol Inj) (02/16/17 18:15) Prochlorperazine Inj (Compazine Inj) (02/16/17 18:15) Diphenhydramine (Benadryl) (02/16/17 18:15) Ct Abd/Pel W Iv Contrast(Rout) (02/16/17 ) Iohexol 350 Inj (Omnipaque 350 Inj) (02/16/17 19:56) Phenylephrine Inj (Neosynephrine Inj) (02/16/17 20:45) Terbutaline Inj (Brethine Inj) (02/16/17 20:45) Ceftriaxone Inj (Rocephin Inj) (02/16/17 20:45) Sodium Chlor 0.9% 1000 Ml Inj (Ns 1000 M (02/16/17 21:15) Sodium Chlor 0.9% 1000 Ml Inj (Ns 1000 M (02/16/17 21:15) Admit Order (Ed Use Only) (02/16/17 21:41) Activity Bed Rest (02/16/17 21:41) Notify Dr: Other (02/16/17 21:41) Labs Laboratory Tests Test 02/16/17 16:23 02/16/17 17:10 02/16/17 17:15 Prothrombin Time 10.7 SEC Prothromb Time International Ratio 1.0 RATIO Activated Partial Thromboplast Time 27.3 SEC Blood Urea Nitrogen 20 MG/DL Creatinine 1.26 MG/DL Random Glucose 128 MG/DL Total Protein 8.1 GM/DL Albumin 3.9 GM/DL Calcium Level 9.2 MG/DL Alkaline Phosphatase 95 U/L Aspartate Amino Transf (AST/SGOT) 33 U/L Alanine Aminotransferase (ALT/SGPT) 24 U/L Total Bilirubin 0.6 MG/DL Sodium Level 135 MEQ/L Potassium Level 4.8 MEQ/L Chloride Level 101 MEQ/L Carbon Dioxide Level 22.6 MEQ/L Anion Gap 11 MEQ/L Estimat Glomerular Filtration Rate 41 ML/MIN Lactic Acid Level 1.3 mmol/L Lipase 84 U/L Urine Color YELLOW Urine Turbidity HAZY Urine pH 5.5 Urine Specific [place] 1.023 Urine Protein 30 mg/dL Urine Glucose (UA) NEG mg/dL Urine Ketones TRACE mg/dL Urine Occult Blood NEG Urine Nitrite NEG Urine Bilirubin NEG Urine Urobilinogen 2.0 MG/DL Urine Leukocyte Esterase MOD Urine RBC 9 /hpf Urine WBC 6 /hpf Urine Squamous Epithelial Cells 5 /hpf Urine Amorphous Sediment RARE Urine Bacteria RARE /hpf Urine Hyaline Casts 47 /lpf Urine Mucus MANY /lpf Microscopic Urinalysis Comment CULT NOT INDICATED White Blood Count 22.3 TH/MM3 Red Blood Count 4.56 MIL/MM3 Hemoglobin 13.8 GM/DL Hematocrit 41.3 % Mean Corpuscular Volume 90.5 FL Mean Corpuscular Hemoglobin 30.3 PG Mean Corpuscular Hemoglobin Concent 33.5 % Red Cell Distribution Width 14.1 % Platelet Count 242 TH/MM3 Mean Platelet Volume 9.7 FL Neutrophils (%) (Auto) 91.3 % Lymphocytes (%) (Auto) 4.1 % Monocytes (%) (Auto) 4.2 % Eosinophils (%) (Auto) 0.1 % Basophils (%) (Auto) 0.3 % Neutrophils # (Auto) 20.4 TH/MM3 Lymphocytes # (Auto) 0.9 TH/MM3 Monocytes # (Auto) 0.9 TH/MM3 Eosinophils # (Auto) 0.0 TH/MM3 Basophils # (Auto) 0.1 TH/MM3 CBC Comment DIFF FINAL Differential Comment MDM Medical Decision Making Medical Screen Exam Complete: Yes Emergency Medical Condition: Yes Medical Record Reviewed: Yes Differential Diagnosis Gastroenteritis, electrolyte abnormality, concussion, intracranial hemorrhage Narrative Course 81-year-old female presents to the emergency room for evaluation of headache, nausea, and vomiting since midnight last night. Patient states the headache started first. She has had about 4 episodes of nonbloody, nonbilious vomit. She denies any abdominal pain. Vital signs are initially stable. Patient is well-appearing. Although there is history of dementia, patient is alert and oriented and does not appear to be altered. No focal neurological deficits. No pronator drift in upper or lower extremities. Normal speech. Abdomen soft, nontender. No peritoneal signs. IV access established and basic labs obtained. Patient was given Tylenol and Zofran immediately for headache and nausea. Reported immediate relief and nausea but persistent headache. She was then given Toradol, Compazine, and oral Benadryl. Following administration of Compazine and Benadryl, patient developed significant hypotension. Lowest blood pressure was in the 70s over 40s. She was immediately given 2 L of fluid and large bore IVs. Blood pressure improved slightly but then began trending down again. Patient reports mild improvement headache. She is resting comfortably with no increased work of breathing. I spoke to my attending physician, Dr. Bonilla, who used a bedside ultrasound to evaluate for pericardial effusion. No obvious effusion on ultrasound. CBC is remarkable for leukocytosis of 22.3 with left shift. CMP shows evidence of mild dehydration. Lactic acid is 1.3. UA shows possible UTI, no culture indicated. Patient meets septic shock criteria with elevated heart rate, leukocytosis, and hypotension not responsive to 2 L bolus. Given patient's persistent hypotension, she will be admitted. I spoke to the hospitalist on-call who deferred to the systems lead given patient's persistent hypertension. After speaking to systems lead, patient's blood pressure improved to the 130s systolic so he deferred back to hospitalist. Patient signed out to nighttime provider. Sepsis Criteria SIRS Criteria (2 or more): Heart rate over 90, WBC > 97280, < 4000 or > 10% bands Sepsis Criteria (SIRS+source): Infect source susp/known Severe Sepsis (+one): Hypotension Septic Shock Criteria: Unresponsive to 30ml/kg fluid bolus Diagnosis Primary Impression: Gastroenteritis Additional Impressions: Hypotension Qualified Codes: I95.9 - Hypotension, unspecified Headache Qualified Codes: G44.89 - Other headache syndrome Admitting Information Admitting Physician Requests: Admit Condition: Stable Karla Phelps Feb 16, 2017 16:13
[2017-02-16] MEDS ORDERED: ONDANSETRON HCL 4 MG/2 ML VIAL IVP ONE (16:15)
[2017-02-16] MEDS ORDERED: ACETAMINOPHEN 325 MG TAB PO ONE (16:15)
[2017-02-16] MEDS ORDERED: SODIUM CHLORIDE 0.9% FLUSH 10 ML FLUSH IV FLUSH PRN ×2 (16:15→22:00)
[2017-02-16 16:25] VITALS: O2SAT 97
--- NOTE | 2017-02-16 16:40 | RADRPT ---
EXAM DATE/TIME: 02/16/2017 16:27 [facility] COMPARISON: CT BRAIN W/O CONTRAST, July 16, 2016, 20:38. INDICATIONS : Patient complains of headache with nausea. RADIATION DOSE: 32.89 CTDIvol (mGy) MEDICAL HISTORY : Cardiovascular disease. Dementia. SURGICAL HISTORY : Appendectomy. Pacemaker. ENCOUNTER: Initial ACUITY: 1 day PAIN SCALE: 5/10 LOCATION: cranial TECHNIQUE: Multiple contiguous axial images were obtained of the head. Using automated exposure control and adj ustment of the mA and/or kV according to patient size, radiation dose was kept as low as reasonably a chievable to obtain optimal diagnostic quality images. DICOM format image data is available electro nically for review and comparison. FINDINGS: CEREBRUM: Mild central and cortical atrophy. No evidence of midline shift, mass lesion, hemorrhage or acute in farction. No extra-axial fluid collections are seen. POSTERIOR FOSSA: The cerebellum and brainstem are intact. The 4th ventricle is midline. The cerebellopontine angle i s unremarkable. EXTRACRANIAL: The visualized portion of the orbits is intact. SKULL: The calvaria is intact. No evidence of skull fracture. CONCLUSION: Atrophy otherwise negative Chuck Garcia MD FACR on February 16, 2017 at 16:38 Board Certified Radiologist. This report was verified electronically.
[2017-02-16 16:55] LABS: APTT (PATIENT) 27.3 SEC (24.3-30.1); PROTHROMBIN TIME - PATIENT 10.7 SEC (9.8-11.6)
[2017-02-16 17:06] LABS: ALKALINE PHOSPHATASE 95 U/L (45-117); TOTAL BILIRUBIN ADULT 0.6 MG/DL (0.2-1.0)
[2017-02-16 17:07] LABS: ALT (GPT) 24 U/L (10-53); ANION GAP 11 MEQ/L (5-15); AST (GOT) 33 U/L (15-37); BICARBONATE 22.6 MEQ/L (21.0-32.0); BLOOD UREA NITROGEN 20 MG/DL (7-18); CHLORIDE 101 MEQ/L (98-107); GLOMERULAR FILTRATION RATE 41 ML/MIN (>89); POTASSIUM 4.8 MEQ/L (3.5-5.1); SODIUM (NA) 135 MEQ/L (136-145)
[2017-02-16 17:41] LABS: BACTERIA, URINE RARE /hpf; BLOOD, URINE NEG (NEG); COMMENT (UR) CULT NOT INDICATED; CULTURE IF INDICATED CULT NOT INDICATED; GLUCOSE,URINE NEG (NEG); HYALINE CAST, URINE 47 /lpf (RARE); KETONE, URINE TRACE mg/dL (NEG); MUCUS URINE MANY /lpf (OCC); NITRITE,URINE NEG (NEG); PH, URINE 5.5 (5.0-8.5); SQUAMOUS EPITHELIAL CELL URINE 5 /hpf (0-5); URINE COLOR YELLOW (YELLW/STRAW)
[2017-02-16 17:54] LABS: AUTOMATED NEUTROPHIL # 20.4 TH/MM3 (1.8-7.7); BASOPHIL # 0.1 TH/MM3 (0-0.2); BASOPHIL % 0.3 % (0.0-2.0); EOSINOPHIL % 0.1 % (0.0-4.0); HEMATOCRIT 41.3 % (35.0-46.0); HEMO FLAGS DIFF FINAL; LYMPH % 4.1 % (9.0-44.0); LYMPHOCYTE # 0.9 TH/MM3 (1.0-4.8); MEAN CELL VOLUME 90.5 FL (80.0-100.0); MEAN CORPUSCULAR HEMOGLOBIN 30.3 PG (27.0-34.0); MEAN CORPUSCULAR HGB CONC 33.5 % (32.0-36.0); MONO % 4.2 % (0.0-8.0); NEUT % 91.3 % (16.0-70.0); PLATELET COUNT 242 TH/MM3 (150-450); RED BLOOD COUNT 4.56 MIL/MM3 (4.00-5.30); RED CELL DISTRIBUTION WIDTH 14.1 % (11.6-17.2); WHITE BLOOD COUNT 22.3 TH/MM3 (4.0-11.0)
[2017-02-16] MEDS ORDERED: SODIUM CHLOR 0.9% 1000 ML INJ 1,000 ML IV ONE ×2 (18:00→21:15)
[2017-02-16] MEDS ORDERED: PROCHLORPERAZINE INJ 10 MG/2 ML VIAL IV PUSH ONE (18:15)
[2017-02-16] MEDS ORDERED: KETOROLAC TROMETHAMINE 30 MG/ML (IVP) VIAL IV PUSH ONE (18:15)
[2017-02-16] MEDS ORDERED: diphenhydrAMINE HCL 25 MG CAP PO ONE (18:15)
[2017-02-16 19:21] VITALS: BP 81/53; PULSE 105; RESP 16; O2SAT 97
[2017-02-16] MEDS ORDERED: IOHEXOL 350 MG/ML 10 ML VIAL (for RAD DIAG) IVCONTRAST ONE (19:56)
[2017-02-16 20:03] VITALS: BP 90/50; PULSE 93; RESP 16; O2SAT 97
[2017-02-16] MEDS ORDERED: cefTRIAXone INJ 1,000 MG in SODIUM CHLORIDE 0.9% INJ 100 ML IV ONE (20:45)
[2017-02-16] MEDS ORDERED: TERBUTALINE INJ 1 MG/ML AMP SQ PRN (20:45)
[2017-02-16] MEDS ORDERED: PHENYLEPHRINE INJ 40 MG in DEXTROSE 5% IN WATE 500 ML INJ 496 ML IV PRN ×2 (20:45)
--- NOTE | 2017-02-16 20:52 | PD ---
Physical Exam Narrative GENERAL: SKIN: Warm and dry. HEAD: Atraumatic. Normocephalic. EYES: Pupils equal and round. No scleral icterus. No injection or drainage. ENT: No nasal bleeding or discharge. Mucous membranes pink and moist. NECK: Trachea midline. No JVD. CARDIOVASCULAR: Regular rate and rhythm. RESPIRATORY: No accessory muscle use. Clear to auscultation. Breath sounds equal bilaterally. GASTROINTESTINAL: Abdomen mild diffuse ttpercussion, nondistended. MUSCULOSKELETAL: Extremities without clubbing, cyanosis, or edema. No obvious deformities. NEUROLOGICAL: Awake and alert. No obvious cranial nerve deficits. Motor grossly within normal limits. Five out of 5 muscle strength in the arms and legs. Normal speech. PSYCHIATRIC: Appropriate mood and affect; insight and judgment normal. Data Data Last Documented VS Vital Signs Date Time Temp Pulse Resp B/P (MAP) Pulse Ox O2 Delivery O2 Flow Rate FiO2 02/16/17 21:02 93 16 109/56 (73) 99 Nasal Cannula 2.00 02/16/17 15:50 98.7 Orders Orders Complete Blood Count With Diff (02/16/17 16:06) Comprehensive Metabolic Panel (02/16/17 16:06) Lipase (02/16/17 16:06) Lactic Acid (02/16/17 16:06) Prothrombin Time / Inr (Pt) (02/16/17 16:06) Act Partial Throm Time (Ptt) (02/16/17 16:06) Urinalysis - C+S If Indicated (02/16/17 16:06) Iv Access Insert/Monitor (02/16/17 16:06) Ecg Monitoring (02/16/17 16:06) Oximetry (02/16/17 16:06) Ondansetron Inj (Zofran Inj) (02/16/17 16:15) Sodium Chloride 0.9% Flush (Ns Flush) (02/16/17 16:15) Electrocardiogram (02/16/17 16:06) Acetaminophen (Tylenol) (02/16/17 16:15) Ct Brain W/O Iv Contrast(Rout) (02/16/17 ) Sodium Chlor 0.9% 1000 Ml Inj (Ns 1000 M (02/16/17 18:00) Ketorolac Inj (Toradol Inj) (02/16/17 18:15) Prochlorperazine Inj (Compazine Inj) (02/16/17 18:15) Diphenhydramine (Benadryl) (02/16/17 18:15) Ct Abd/Pel W Iv Contrast(Rout) (02/16/17 ) Iohexol 350 Inj (Omnipaque 350 Inj) (02/16/17 19:56) Phenylephrine Inj (Neosynephrine Inj) (02/16/17 20:45) Terbutaline Inj (Brethine Inj) (02/16/17 20:45) Ceftriaxone Inj (Rocephin Inj) (02/16/17 20:45) Sodium Chlor 0.9% 1000 Ml Inj (Ns 1000 M (02/16/17 21:15) Sodium Chlor 0.9% 1000 Ml Inj (Ns 1000 M (02/16/17 21:15) Labs Laboratory Tests Test 02/16/17 16:23 02/16/17 17:10 02/16/17 17:15 Prothrombin Time 10.7 SEC Prothromb Time International Ratio 1.0 RATIO Activated Partial Thromboplast Time 27.3 SEC Blood Urea Nitrogen 20 MG/DL Creatinine 1.26 MG/DL Random Glucose 128 MG/DL Total Protein 8.1 GM/DL Albumin 3.9 GM/DL Calcium Level 9.2 MG/DL Alkaline Phosphatase 95 U/L Aspartate Amino Transf (AST/SGOT) 33 U/L Alanine Aminotransferase (ALT/SGPT) 24 U/L Total Bilirubin 0.6 MG/DL Sodium Level 135 MEQ/L Potassium Level 4.8 MEQ/L Chloride Level 101 MEQ/L Carbon Dioxide Level 22.6 MEQ/L Anion Gap 11 MEQ/L Estimat Glomerular Filtration Rate 41 ML/MIN Lactic Acid Level 1.3 mmol/L Lipase 84 U/L Urine Color YELLOW Urine Turbidity HAZY Urine pH 5.5 Urine Specific [place] 1.023 Urine Protein 30 mg/dL Urine Glucose (UA) NEG mg/dL Urine Ketones TRACE mg/dL Urine Occult Blood NEG Urine Nitrite NEG Urine Bilirubin NEG Urine Urobilinogen 2.0 MG/DL Urine Leukocyte Esterase MOD Urine RBC 9 /hpf Urine WBC 6 /hpf Urine Squamous Epithelial Cells 5 /hpf Urine Amorphous Sediment RARE Urine Bacteria RARE /hpf Urine Hyaline Casts 47 /lpf Urine Mucus MANY /lpf Microscopic Urinalysis Comment CULT NOT INDICATED White Blood Count 22.3 TH/MM3 Red Blood Count 4.56 MIL/MM3 Hemoglobin 13.8 GM/DL Hematocrit 41.3 % Mean Corpuscular Volume 90.5 FL Mean Corpuscular Hemoglobin 30.3 PG Mean Corpuscular Hemoglobin Concent 33.5 % Red Cell Distribution Width 14.1 % Platelet Count 242 TH/MM3 Mean Platelet Volume 9.7 FL Neutrophils (%) (Auto) 91.3 % Lymphocytes (%) (Auto) 4.1 % Monocytes (%) (Auto) 4.2 % Eosinophils (%) (Auto) 0.1 % Basophils (%) (Auto) 0.3 % Neutrophils # (Auto) 20.4 TH/MM3 Lymphocytes # (Auto) 0.9 TH/MM3 Monocytes # (Auto) 0.9 TH/MM3 Eosinophils # (Auto) 0.0 TH/MM3 Basophils # (Auto) 0.1 TH/MM3 CBC Comment DIFF FINAL Differential Comment [facility] Medical Record Reviewed: Yes Supervised Visit with BRENT: Yes Narrative Course initially patient's sbp in 70's, given ivf 1 l ns bolus then repeat bolus, sbp improved to 98...while asleep sbp repeated and it appeared to be 78, repeated when patient was awaken, sbp 139/72, repeated 109/74, and repeated yet again for sbp in 120's...without any pressors. patient given rocephin and 1 additional ivf. patient is otherwise doing well Critical Care Narrative CRITICAL CARE NOTE: With evaluation of the patient, labs, EKG, receipt of radiologic studies, administration of medications, reevaluation the patient and discussion of the patient with the admitting physicians, the total critical care time was [30] minutes. Time to perform other separately billable procedures was not included in the critical care time. Procedures Procedure Narrative bedside uiltrasound: abdominal aorta tapers as expected, ultrasound of cardiac chambers does not show any pericardial effusion....it did show enlarged gallbladder but without thickened wall or pericholecystic fluid. Sepsis Criteria SIRS Criteria (2 or more): Heart rate over 90, WBC > 71005, < 4000 or > 10% bands Criteria Outcome: Meets SIRS criteria Physician Communication Physician Communication discuss w home school teacher james who requested admission to medicine, continue ivf. currently awaiting [facility] for admit. Diagnosis Primary Impression: gastroenteritis Additional Impressions: Leukocytosis, unspecified UTI (urinary tract infection) Qualified Codes: N30.00 - Acute cystitis without hematuria septic shock vs medication reaction Admitting Information Admitting Physician Requests: Admit Tariq Bonilla MD Feb 16, 2017 20:52
[2017-02-16 21:02] VITALS: BP 109/56; PULSE 93; RESP 16; O2SAT 99
--- NOTE | 2017-02-16 21:02 | RADRPT ---
EXAM DATE/TIME: 02/16/2017 19:48 [facility] COMPARISON: CT ABDOMEN & PELVIS W CONTRAST, July 16, 2016, 20:54. INDICATIONS : Diffuse abdominal pain with nausea and vomiting. IV CONTRAST: 80 cc Omnipaque 350 (iohexol) IV ORAL CONTRAST: No oral contrast ingested. RADIATION DOSE: 8.72 CTDIvol (mGy) MEDICAL HISTORY : Cardiovascular disease. Dementia. SURGICAL HISTORY : Pacemaker. Appendectomy.Bilateral hip replacements. ENCOUNTER: Initial ACUITY: 1 day PAIN SCALE: 5/10 LOCATION: Abdomen. TECHNIQUE: Volumetric scanning of the abdomen and pelvis was performed. Using automated exposure control and ad justment of the mA and/or kV according to patient size, radiation dose was kept as low as reasonably achievable to obtain optimal diagnostic quality images. DICOM format image data is available electro nically for review and comparison. FINDINGS: LOWER LUNGS: The visualized lower lungs are clear. There is a pacemaker in place. LIVER: There are several stable hypodensities seen in the liver measuring up to 1.9 cm. These likely represe nt cysts. SPLEEN: Normal size without lesion. PANCREAS: Within normal limits. KIDNEYS: Normal in size and shape. There is no mass, stone or hydronephrosis. ADRENAL GLANDS: Within normal limits. VASCULAR: There is no aortic aneurysm. Atherosclerotic calcifications are seen. BOWEL/MESENTERY: There is a [id number] hiatal hernia present. ABDOMINAL WALL: Within normal limits. RETROPERITONEUM: There is no lymphadenopathy. BLADDER: No wall thickening or mass. REPRODUCTIVE: Within normal limits. INGUINAL: There is no lymphadenopathy or hernia. MUSCULOSKELETAL: Bilateral hip prostheses are in place. These do cause streak artifact over the pelvis. There is degen erative change in the lumbar spine. CONCLUSION: 1. Mild to moderate hiatal hernia. 2. Hepatic cysts. 3. Degenerative change in lumbar spine. 4. Bilateral hip prostheses which do limit evaluation of the pelvis. Anuj Kaiser MD on February 16, 2017 at 20:57 Board Certified Radiologist. This report was verified electronically.
[2017-02-16] MEDS: SODIUM CHLOR 0.9% 1000 ML INJ 1,000 ML IV ONE ×2 (21:10→21:38)
[2017-02-16] MEDS ORDERED: BISACODYL 10 MG SUPP RECTAL PRN (22:00)
[2017-02-16] MEDS ORDERED: SENNOSIDES 8.6 MG TAB PO PRN (22:00)
[2017-02-16] MEDS ORDERED: MAGNESIUM HYDROXIDE SUSP 30 ML CUP PO PRN (22:00)
[2017-02-16] MEDS ORDERED: ONDANSETRON HCL 4 MG/2 ML VIAL IVP PRN (22:00)
[2017-02-16] MEDS ORDERED: LACTULOSE SYRUP 20 GM/30 ML CUP PO PRN (22:00)
[2017-02-16] MEDS ORDERED: NALOXONE HCL 0.4 MG/ML AMP IV PUSH PRN (22:00)
[2017-02-16] MEDS: HEPARIN SODIUM - SQ 10,000 UNITS/ML VIAL SQ SCH (22:05)
[2017-02-16 22:06] VITALS: BP 109/59; PULSE 86; RESP 16; O2SAT 99
[2017-02-16] MEDS: CHLORHEXIDINE GLUCONATE 2 % 1 PACK (2 CLOTHS)(taper/protocol) TOPICAL SCH (23:25)
[2017-02-16] MEDS ORDERED: CHLORHEXIDINE GLUCONATE 2 % 1 PACK (2 CLOTHS)(extra cloths) TOPICAL PRN (23:30)
[2017-02-17] VITALS (47 sets, daily range): BP systolic 75–153; BP diastolic 45–107; PULSE 71–107; RESP 16–35; TEMP 98.2–98.9; O2SAT 90–99
[2017-02-17] MEDS: SODIUM CHLOR 0.45% 1000 ML INJ 1,000 ML IV SCH ×3 (02:09→19:18)
--- NOTE | 2017-02-17 02:37 | HHI.HP ---
HPI Service [facility] Primary Care Physician Unknown Admission Diagnosis HYPOTENSION(RESPONSIVE TO FLUIDS), UTI, LEUKOCYTOSIS Diagnoses: Travel History International Travel<30 Days: No Contact w/Intl Traveler <30 Da: No Traveled to Known Affected Are: No History of Present Illness 81-year-old female with a past medical history significant for CAD with pacemaker placement, hypertension, dementia and anxiety presents to the emergency department for evaluation of headache, nausea and vomiting since midnight last night. Patient endorses nonbloody nonbilious emesis 4 or 5 times. The patient also endorses associated shortness of breath. She denies fever/chills/diarrhea/abdominal pain. Lab values significant for a white blood cell count of 22.3 with a left shift. Creatinine 1.26, baseline 1. CT of the abdomen/pelvis with no acute process. In the ED, the patient was treated with Compazine, Zofran, Benadryl and Toradol without alleviation of her symptoms. She then became acutely hypotensive with a blood pressure of 81/53. The patient was given a 2 L bolus of IV fluids with subsequent improvement in her blood pressure. Pressors were never started. The patient was admitted to the care unit for close monitoring. Review of Systems Denies fever or chills Denies blurry vision, otorrhea, rhinorrhea Denies sore throat and cough No chest pain, palpitations, positive shortness of breath No abdominal pain Positive diarrhea/nausea/vomiting Denies muscle pain/weakness No rashes Past Family Social History Past Medical History (Obtained from medical records) Anxiety Dementia Hypertension CAD Past Surgical History Pacemaker Lumbar surgery Appendectomy Toe surgery Reported Medications Reported Meds & Active Scripts Active Reported Aspir-81 (Aspirin) 81 Mg Tabdr 81 Mg PO DAILY Trazodone (Trazodone HCl) 50 Mg Tab 50 Mg PO TID Triamcinolone Topical 0.025 % Oint 1 Applic TOPICAL BID Sertraline (Sertraline HCl) 100 Mg Tab 100 Mg PO DAILY Santyl Topical (Collagenase) 250 Unit/Gm Oint 1 Applic TOPICAL DAILY Pantoprazole (Pantoprazole Sodium) 40 Mg Tab 40 Mg PO DAILY Mirtazapine 15 Mg Tab 15 Mg PO HS Levocetirizine 5 Mg Tab 5 Mg PO DAILY Ferosul (Ferrous Sulfate) 220 Mg/5 Ml Elx 325 Mg PO BID Clobetasol Topical (Clobetasol Propionate) 0.05% Cream 1 Applic TOPICAL BID Carvedilol 6.25 Mg Tab 6.25 Mg PO BID Calcium 500 +D (Calcium Carbonate-Cholecalciferol) 500-400 Mg-Unit Tab 1 Tab PO BID Buspirone (Buspirone HCl) 10 Mg Tab 10 Mg PO BID Atorvastatin (Atorvastatin Calcium) 40 Mg Tab 40 Mg PO HS Aspirin 81 Mg Tabdr 81 Mg PO DAILY Allergies: Coded Allergies: No Known Allergies (Unverified Allergy, Unknown, 02/16/17) Family History No history of diabetes mellitus or coronary artery disease Social History Denies tobacco, alcohol and illicit drugs Physical Exam Vital Signs Vital Signs Date Time Temp Pulse Resp B/P (MAP) Pulse Ox O2 Delivery O2 Flow Rate FiO2 02/17/17 02:00 91 02/17/17 00:07 96 Nasal Cannula 2.00 02/17/17 00:00 98.5 107 17 108/55 (72) 96 02/17/17 00:00 107 02/16/17 22:06 86 16 109/59 (76) 99 Nasal Cannula 2.00 02/16/17 21:02 93 16 109/56 (73) 99 Nasal Cannula 2.00 02/16/17 20:03 93 16 90/50 (63) 97 Room Air 02/16/17 19:21 105 16 81/53 (62) 97 Room Air 02/16/17 19:20 16 02/16/17 16:25 97 02/16/17 15:50 98.7 85 18 128/59 (82) 96 Physical Exam GENERAL: Elderly female lying in bed SKIN: No rashes, ecchymoses or lesions. Cool and dry. HEAD: Atraumatic. Normocephalic. No temporal or scalp tenderness. EYES: Pupils equal round and reactive. Extraocular motions intact. No scleral icterus. No injection or drainage. ENT: Nose without bleeding, purulent drainage or septal hematoma. Throat without erythema, tonsillar hypertrophy or exudate. Uvula midline. Airway patent. NECK: Trachea midline. No JVD or lymphadenopathy. Supple, nontender, no meningeal signs. CARDIOVASCULAR: Regular rate and rhythm without murmurs, gallops, or rubs. RESPIRATORY: Clear to auscultation. Breath sounds equal bilaterally. No wheezes , rales, or rhonchi. GASTROINTESTINAL: Abdomen soft, non-tender, nondistended. No hepato-splenomegaly , or palpable masses. No guarding. MUSCULOSKELETAL: Extremities without clubbing, cyanosis, or edema. No joint tenderness, effusion, or edema noted. No calf tenderness. NEUROLOGICAL: Awake and alert. Cranial nerves II through XII intact. Motor and sensory grossly within normal limits. Normal speech. Laboratory Laboratory Tests Test 02/16/17 16:23 02/16/17 17:10 02/16/17 17:15 02/16/17 23:15 Prothrombin Time 10.7 Prothromb Time International Ratio 1.0 Activated Partial Thromboplast Time 27.3 Blood Urea Nitrogen 20 Creatinine 1.26 Random Glucose 128 Total Protein 8.1 Albumin 3.9 Calcium Level 9.2 Alkaline Phosphatase 95 Aspartate Amino Transf (AST/SGOT) 33 Alanine Aminotransferase (ALT/SGPT) 24 Total Bilirubin 0.6 Sodium Level 135 Potassium Level 4.8 Chloride Level 101 Carbon Dioxide Level 22.6 Anion Gap 11 Estimat Glomerular Filtration Rate 41 Lactic Acid Level 1.3 Lipase 84 Urine Color YELLOW Urine Turbidity HAZY Urine pH 5.5 Urine Specific [place] 1.023 Urine Protein 30 Urine Glucose (UA) NEG Urine Ketones TRACE Urine Occult Blood NEG Urine Nitrite NEG Urine Bilirubin NEG Urine Urobilinogen 2.0 Urine Leukocyte Esterase MOD Urine RBC 9 Urine WBC 6 Urine Squamous Epithelial Cells 5 Urine Amorphous Sediment RARE Urine Bacteria RARE Urine Hyaline Casts 47 Urine Mucus MANY Microscopic Urinalysis Comment CULT NOT INDICATED White Blood Count 22.3 Red Blood Count 4.56 Hemoglobin 13.8 Hematocrit 41.3 Mean Corpuscular Volume 90.5 Mean Corpuscular Hemoglobin 30.3 Mean Corpuscular Hemoglobin Concent 33.5 Red Cell Distribution Width 14.1 Platelet Count 242 Mean Platelet Volume 9.7 Neutrophils (%) (Auto) 91.3 Lymphocytes (%) (Auto) 4.1 Monocytes (%) (Auto) 4.2 Eosinophils (%) (Auto) 0.1 Basophils (%) (Auto) 0.3 Neutrophils # (Auto) 20.4 Lymphocytes # (Auto) 0.9 Monocytes # (Auto) 0.9 Eosinophils # (Auto) 0.0 Basophils # (Auto) 0.1 CBC Comment DIFF FINAL Differential Comment Result Diagram: 02/16/17 1715 02/16/17 1623 Imaging Last Impressions Head CT 02/16/17 0000 Signed Impressions: Service Date/Time: Thursday, February 16, 2017 16:27 - CONCLUSION: Atrophy otherwise negative Chuck Garcia MD FACR Abdomen/Pelvis CT 02/16/17 0000 Signed Impressions: Service Date/Time: Thursday, February 16, 2017 19:48 - CONCLUSION: 1. Mild to moderate hiatal hernia. 2. Hepatic cysts. 3. Degenerative change in lumbar spine. 4. Bilateral hip prostheses which do limit evaluation of the pelvis. Anuj Kaiser MD [place] VTE Risk Assessment Caprini VTE Risk Assessment: Mod/High Risk (score >= 2) Caprini Risk Assessment Model Point Value = 1 Point Value = 2 Point Value = 3 Point Value = 5 Age 41-60 Minor surgery BMI > 25 kg/m2 Swollen legs Varicose veins or History of unexplained or recurrent spontaneous Oral contraceptives or hormone replacement Sepsis (< 1 month) Serious lung disease, including pneumonia (< 1 month) Abnormal pulmonary function Acute myocardial infarction Congestive heart failure (< 1 month) History of inflammatory bowel disease Medical patient at bed rest Age 61-74 Arthroscopic surgery Major open surgery (> 45 min) Laparoscopic surgery (> 45 min) Malignancy Confined to bed (> 72 hours) Immobilizing plaster cast Central venous access Age >= 75 History of VTE Family history of VTE Factor V Leiden Prothrombin [id number] Lupus anticoagulant Anticardiolipin antibodies Elevated serum homocysteine Heparin-induced thrombocytopenia Other congenital or acquired thrombophilia Stroke (< 1 month) Elective arthroplasty Hip, pelvis, or leg fracture Acute spinal cord injury (< 1 month) Prophylaxis Regimen Total Risk Factor Score Risk Level Prophylaxis Regimen 0-1 Low Early ambulation 2 Moderate Order ONE of the following: *Sequential Compression Device (SCD) *Heparin 5000 units SQ BID 3-4 Higher Order ONE of the following medications: *Heparin 5000 units SQ TID *Enoxaparin/Lovenox 40 mg SQ daily (WT < 150 kg, CrCl > 30 mL/min) *Enoxaparin/Lovenox 30 mg SQ daily (WT < 150 kg, CrCl > 10-29 mL/min) *Enoxaparin/Lovenox 30 mg SQ BID (WT < 150 kg, CrCl > 30 mL/min) AND/OR *Sequential Compression Device (SCD) 5 or more Highest Order ONE of the following medications: *Heparin 5000 units SQ TID (Preferred with Epidurals) *Enoxaparin/Lovenox 40 mg SQ daily (WT < 150 kg, CrCl > 30 mL/min) *Enoxaparin/Lovenox 30 mg SQ daily (WT < 150 kg, CrCl > 10-29 mL/min) *Enoxaparin/Lovenox 30 mg SQ BID (WT < 150 kg, CrCl > 30 mL/min) AND *Sequential Compression Device (SCD) Assessment and Plan Assessment and Plan 81-year-old female with a past medical history significant for coronary artery disease with a pacemaker, hypertension, dementia and anxiety presented from her assisted living facility with nausea/vomiting and headache. Patient with leukocytosis and left shift. Upon treatment in the emergency department, she became hypotensive. Current map after IV fluid bolus 68. 1. Hypotension Medication-induced versus sepsis; leukocytosis 22.3, lactic acid 1.3 Sepsis workup pending including chest x-ray, blood cultures UA concerning for possible UTI, Urine culture pending, Rocephin Responded to fluid challenge Admit to ICU for close monitoring Continue IV fluids Bolus as needed If MAP sustains below 65, will start pressors 2. Intractable nausea/vomiting CT of the abdomen/pelvis significant for mild to moderate hiatal hernia. No acute findings, images reviewed by me Continue Zofran No transaminitis No abdominal pain Clears if tolerated 3. UTI As above 4. JOHN Likely secondary to vomiting/diarrhea IV fluid hydration Recheck labs in the a.m. 5. Hypertension Holding antihypertensives secondary to patient's current clinical condition 6. Anxiety/depression Continue home medications FEN Clears NS at 100 cc/hr Electrolytes: Moderate replete prn Heparin Physician Certification 2 Midnight Certification Type: Admission for Inpatient Services Order for Inpatient Services The services are ordered in accordance with Medicare regulations or non- Medicare payer requirements, as applicable. In the case of services not specified as inpatient-only, they are appropriately provided as inpatient services in accordance with the 2-midnight benchmark. Estimated LOS (days): 2 2 days is the estimated time the patient will need to remain in the hospital, assuming treatment plan goals are met and no additional complications. Post-Hospital Plan: Not yet determined Alexia Cadena MD Feb 17, 2017 02:37
[2017-02-17] MEDS ORDERED: SODIUM CHLORID 0.9% 500 ML INJ 500 ML IV ONE (03:15)
--- NOTE | 2017-02-17 04:10 | RADRPT ---
EXAM DATE/TIME: 02/17/2017 03:09 [facility] COMPARISON: CHEST SINGLE AP, July 16, 2016, 19:43. INDICATIONS : Short of breath. MEDICAL HISTORY : Cardiovascular disease. Dementia. SURGICAL HISTORY : Pacemaker. Appendectomy. ENCOUNTER: Initial ACUITY: 2 days PAIN SCORE: Non-responsive. LOCATION: Bilateral chest FINDINGS: A single view of the chest demonstrates the lungs to be symmetrically aerated without evidence of mas s, infiltrate or effusion. There is a left-sided dual-lead subclavian pacer. The cardiomediastinal co ntours are unremarkable. Severe osteoarthritis of both glenohumeral joints. CONCLUSION: Left subclavian bipolar pacer. Lungs are clear. Tee Aparicio MD on February 17, 2017 at 4:08 Board Certified Radiologist. This report was verified electronically.
[2017-02-17] MEDS ORDERED: TERBUTALINE INJ 1 MG/ML AMP SQ PRN (04:15)
[2017-02-17] MEDS ORDERED: PHENYLEPHRINE INJ 40 MG in DEXTROSE 5% IN WATE 500 ML INJ 496 ML IV PRN ×2 (04:15)
[2017-02-17] MEDS ORDERED: SODIUM CHLOR 0.9% 1000 ML INJ 1,000 ML IV ONE (04:15)
[2017-02-17 04:18] LABS: AUTOMATED NEUTROPHIL # 10.5 TH/MM3 (1.8-7.7); BASOPHIL % 0.2 % (0.0-2.0); HEMATOCRIT 34.8 % (35.0-46.0); HEMO FLAGS DIFF FINAL; LYMPH % 4.5 % (9.0-44.0); LYMPHOCYTE # 0.5 TH/MM3 (1.0-4.8); MEAN CELL VOLUME 91.8 FL (80.0-100.0); MEAN CORPUSCULAR HEMOGLOBIN 29.9 PG (27.0-34.0); MEAN CORPUSCULAR HGB CONC 32.6 % (32.0-36.0); MONO % 5.6 % (0.0-8.0); NEUT % 89.7 % (16.0-70.0); PLATELET COUNT 140 TH/MM3 (150-450); RED BLOOD COUNT 3.79 MIL/MM3 (4.00-5.30); RED CELL DISTRIBUTION WIDTH 14.9 % (11.6-17.2); WHITE BLOOD COUNT 11.7 TH/MM3 (4.0-11.0)
[2017-02-17 04:47] LABS: BICARBONATE 17.8 MEQ/L (21.0-32.0); POTASSIUM 3.6 MEQ/L (3.5-5.1)
--- NOTE | 2017-02-17 04:53 | PD.CONS ---
[facility] Service Critical Care Medicine Consult Requested By Dr. Cadena Reason for Consult Hypotension Hypovolemia Acute kidney injury Probable sepsis Leukocytosis Gastroenteritis Primary Care Physician Unknown History of Present Illness Patient is a 81-year-old female with a past medical history significant for CAD , hypertension, pacemaker placement, dementia and anxiety who presented to the emergency department with frontal headache, nausea and vomiting about 12 hours prior to presentation. Also complained about watery diarrhea for 2 days. She denied fever chills or abdominal pain. Her initial white count was 22.3 with left shift. BUN 20, Creatinine 1.26. CT of the abdomen/pelvis with no acute process. CT head also negative. Patient received Toradol, Compazine, Zofran, Benadryl for headache and became hypotensive in ED. Patient responded to 2 L fluid bolus and was admitted to the hospitalist service. Today around 4 AM, I was contacted by [facility] hospitalist Dr. Cadena as the patient 's blood pressure was trending down with MAP less than 60, systolic blood pressure in mid 80s. This was despite completing 3 L fluid bolus. Critical care medicine was consulted for persistent hypotension. I evaluated the patient. I have ordered fourth liter fluid bolus, and currently blood pressure has improved to systolic of 102. Patient remains tachycardic at a paced rhythm of 95 bpm. She had 3 episodes of diarrhea after arriving in the ICU. I have is requested for C. difficile, will start on by mouth Flagyl as well and continue IV hydration. Most likely hypotension is hypovolemic and due to probable sepsis Review of Systems ROS Limitations: Other (as per [facility]) Past Family Social History Allergies: Coded Allergies: No Known Allergies (Unverified Allergy, Unknown, 02/16/17) Past Medical History CAD Hypertension Anxiety Dementia Past Surgical History Pacemaker placement Lumbar surgery Appendectomy Toe surgery Reported Medications Aspir-81 (Aspirin) 81 Mg Tabdr 81 Mg PO DAILY Trazodone (Trazodone HCl) 50 Mg Tab 50 Mg PO TID Triamcinolone Topical 0.025 % Oint 1 Applic TOPICAL BID Sertraline (Sertraline HCl) 100 Mg Tab 100 Mg PO DAILY Santyl Topical (Collagenase) 250 Unit/Gm Oint 1 Applic TOPICAL DAILY Pantoprazole (Pantoprazole Sodium) 40 Mg Tab 40 Mg PO DAILY Mirtazapine 15 Mg Tab 15 Mg PO HS Levocetirizine 5 Mg Tab 5 Mg PO DAILY Ferosul (Ferrous Sulfate) 220 Mg/5 Ml Elx 325 Mg PO BID Clobetasol Topical (Clobetasol Propionate) 0.05% Cream 1 Applic TOPICAL BID Carvedilol 6.25 Mg Tab 6.25 Mg PO BID Calcium 500 +D (Calcium Carbonate-Cholecalciferol) 500-400 Mg-Unit Tab 1 Tab PO BID Buspirone (Buspirone HCl) 10 Mg Tab 10 Mg PO BID Atorvastatin (Atorvastatin Calcium) 40 Mg Tab 40 Mg PO HS Aspirin 81 Mg Tabdr 81 Mg PO DAILY Active Ordered Medications Reviewed Family History Denies any family history of coronary artery disease Social History No history of alcohol or tobacco abuse per EMR Physical Exam Vital Signs Vital Signs Date Time Temp Pulse Resp B/P (MAP) Pulse Ox O2 Delivery O2 Flow Rate FiO2 02/17/17 04:20 97 Nasal Cannula 2.00 02/17/17 02:00 91 02/17/17 00:07 96 Nasal Cannula 2.00 02/17/17 00:00 98.5 107 17 108/55 (72) 96 02/17/17 00:00 107 02/16/17 22:06 86 16 109/59 (76) 99 Nasal Cannula 2.00 02/16/17 21:02 93 16 109/56 (73) 99 Nasal Cannula 2.00 02/16/17 20:03 93 16 90/50 (63) 97 Room Air 02/16/17 19:21 105 16 81/53 (62) 97 Room Air 02/16/17 19:20 16 02/16/17 16:25 97 02/16/17 15:50 98.7 85 18 128/59 (82) 96 Physical Exam GENERAL: 81 yo female lying in bed, complains of frontal head ache SKIN: Warm and dry. HEAD: Atraumatic. Normocephalic. EYES: Pupils equal round and reactive. No injection or drainage. ENT: Oral cavity is dry. Uvula midline. Airway patent. NECK: Supple, nontender, no meningeal signs. CARDIOVASCULAR: Tachycardic paced rate without murmurs, gallops, or rubs. Left upper chest pacemaker in place RESPIRATORY: Breath sounds equal bilaterally. No wheezes, rales, or rhonchi. GASTROINTESTINAL: Abdomen soft, non-tender, nondistended. No hepato-splenomegaly MUSCULOSKELETAL: Extremities without clubbing, cyanosis, or edema. NEUROLOGICAL: Awake and alert. Motor and sensory grossly within normal limits. Normal speech. No focal deficits grossly Laboratory Laboratory Tests Test 02/16/17 16:23 02/16/17 17:10 02/16/17 17:15 02/16/17 23:15 Prothrombin Time 10.7 Prothromb Time International Ratio 1.0 Activated Partial Thromboplast Time 27.3 Blood Urea Nitrogen 20 Creatinine 1.26 Random Glucose 128 Total Protein 8.1 Albumin 3.9 Calcium Level 9.2 Alkaline Phosphatase 95 Aspartate Amino Transf (AST/SGOT) 33 Alanine Aminotransferase (ALT/SGPT) 24 Total Bilirubin 0.6 Sodium Level 135 Potassium Level 4.8 Chloride Level 101 Carbon Dioxide Level 22.6 Anion Gap 11 Estimat Glomerular Filtration Rate 41 Lactic Acid Level 1.3 Lipase 84 Urine Color YELLOW Urine Turbidity HAZY Urine pH 5.5 Urine Specific [place] 1.023 Urine Protein 30 Urine Glucose (UA) NEG Urine Ketones TRACE Urine Occult Blood NEG Urine Nitrite NEG Urine Bilirubin NEG Urine Urobilinogen 2.0 Urine Leukocyte Esterase MOD Urine RBC 9 Urine WBC 6 Urine Squamous Epithelial Cells 5 Urine Amorphous Sediment RARE Urine Bacteria RARE Urine Hyaline Casts 47 Urine Mucus MANY Microscopic Urinalysis Comment CULT NOT INDICATED White Blood Count 22.3 Red Blood Count 4.56 Hemoglobin 13.8 Hematocrit 41.3 Mean Corpuscular Volume 90.5 Mean Corpuscular Hemoglobin 30.3 Mean Corpuscular Hemoglobin Concent 33.5 Red Cell Distribution Width 14.1 Platelet Count 242 Mean Platelet Volume 9.7 Neutrophils (%) (Auto) 91.3 Lymphocytes (%) (Auto) 4.1 Monocytes (%) (Auto) 4.2 Eosinophils (%) (Auto) 0.1 Basophils (%) (Auto) 0.3 Neutrophils # (Auto) 20.4 Lymphocytes # (Auto) 0.9 Monocytes # (Auto) 0.9 Eosinophils # (Auto) 0.0 Basophils # (Auto) 0.1 CBC Comment DIFF FINAL Differential Comment Test 02/17/17 04:08 02/17/17 04:33 White Blood Count 11.7 Red Blood Count 3.79 Hemoglobin 11.3 Hematocrit 34.8 Mean Corpuscular Volume 91.8 Mean Corpuscular Hemoglobin 29.9 Mean Corpuscular Hemoglobin Concent 32.6 Red Cell Distribution Width 14.9 Platelet Count 140 Mean Platelet Volume 9.0 Neutrophils (%) (Auto) 89.7 Lymphocytes (%) (Auto) 4.5 Monocytes (%) (Auto) 5.6 Eosinophils (%) (Auto) 0.0 Basophils (%) (Auto) 0.2 Neutrophils # (Auto) 10.5 Lymphocytes # (Auto) 0.5 Monocytes # (Auto) 0.7 Eosinophils # (Auto) 0.0 Basophils # (Auto) 0.0 CBC Comment DIFF FINAL Differential Comment Blood Urea Nitrogen 20 Creatinine 1.20 Random Glucose 140 Calcium Level 7.1 Sodium Level 140 Potassium Level 3.6 Chloride Level 112 Carbon Dioxide Level 17.8 Anion Gap 10 Estimat Glomerular Filtration Rate 43 Date/Time Source Procedure Growth Status 02/17/17 04:08 Blood Peripheral Aerobic Blood Culture Pending Received 02/17/17 04:08 Blood Peripheral Anaerobic Blood Culture Pending Received Result Diagram: 02/17/17 0408 02/17/17 0408 Imaging Chest x-ray no acute findings CT of the abdomen and pelvis shows hiatal hernia no acute findings Septic Shock Reassessment Heart: Other (tachycardic, paced) Lungs: Course Skin: Dry Peripheral Pulses: Weak Right Radial Weak Left Radial Assessment and Plan Assessment and Plan ASSESSMENT: Hypotension Hypovolemia Acute kidney injury Probable sepsis Leukocytosis Gastroenteritis Anxiety History of dementia Coronary artery disease History of hypertension PLAN: NEURO: - Minimize sedation. Hold buspirone and trazodone - Continue mirtazapine and sertraline RESP: - Nasal cannula oxygen, DuoNeb every 6 hours when necessary CV: - Received 3 L fluid bolus, given additional 1 L fluid bolus and continue maintenance fluid at 100 ML per hour - Hypotension most likely secondary to dehydration and volume loss and sepsis - Check random cortisol and TSH check 2-D echo, troponin - Start Eagle-Synephrine if persistently hypotensive after 4 L - Continue aspirin hold carvedilol GI: - Heart healthy diet, continue by mouth Protonix : - Monitor renal function closely. Ct abdomen did not show any hydronephrosis ID: - Continue IV Rocephin, added by mouth Flagyl - Follow-up on blood culture and urine culture, check C. difficile HEME: - Monitor CBC, CMP, coags ENDO: - Electrolyte replacement per protocol - Check TSH and random cortisol PROPH: - Bilateral lower extremity SCDs. Subcutaneous heparin, by mouth Protonix LINES: - Utilize peripheral IVs, central line if needed CC time 35 min Code Status Full Discussed Condition With Jennifer Roper MD Feb 17, 2017 04:53
[2017-02-17 05:04] LABS: CALCIUM-PROTEIN CORRECTED 7.8 MG/DL (8.5-10.1)
[2017-02-17] MEDS ORDERED: RESP: ALBUTEROL 2.5 MG/IPRATROPIUM 0.5 MG NEB (PRN) NEB (05:15)
[2017-02-17] MEDS: metroNIDAZOLE 500 MG TAB PO SCH ×3 (05:36→20:30)
[2017-02-17] MEDS ORDERED: traZODone HCL 50 MG TAB PO SCH (09:00)
[2017-02-17] MEDS: DOCUSATE SODIUM 50 MG/SENNA 8.6 MG TAB PO SCH ×2 (09:00→20:31)
[2017-02-17] MEDS ORDERED: busPIRone HCL 10 MG TAB PO SCH (09:00)
[2017-02-17] MEDS: SODIUM CHLORIDE 0.9% FLUSH 10 ML FLUSH IV FLUSH SCH ×2 (09:00→20:30)
[2017-02-17] MEDS: SERTRALINE HCL 100 MG TAB PO SCH (09:44)
[2017-02-17] MEDS: HEPARIN SODIUM - SQ 10,000 UNITS/ML VIAL SQ SCH ×2 (09:44→20:30)
[2017-02-17] MEDS: ASPIRIN EC 81 MG TABEC PO SCH (09:44)
[2017-02-17] MEDS: PANTOPRAZOLE SOD 40 MG DELAYED RELEASE TAB PO SCH (09:44)
[2017-02-17] MEDS ORDERED: INFLUENZA VIRUS VACCINE (QUADRIVALENT) 0.5 ML SYR IM ONE (10:00)
[2017-02-17] MEDS ORDERED: PNEUMOCOCCAL POLYVALENT INJ 25 MCG/0.5 ML SYR IM ONE (10:00)
[2017-02-17 12:56] LABS: C. DIFF EPI 027 PRESUMPTIVE NEGATIVE (NEGATIVE)
[2017-02-17] MEDS: ACETAMINOPHEN 325 MG TAB PO PRN (15:02)
--- NOTE | 2017-02-17 16:28 | EKG ---
Date Performed: 02/16/2017 Time Performed: 16:57:51 PTAGE: 81 years EKG: ELECTRONIC VENTRICULAR PACEMAKER ABNORMAL RHYTHM ECG PREVIOUS TRACING 07/16/16 @ 1937 Compared to prior tracing no significant change DOCTOR: Elizabeth Lee Interpretating Date/Time 02/17/2017 16:26:33
[2017-02-17] MEDS: ATORVASTATIN 40 MG TAB PO SCH (20:30)
[2017-02-17] MEDS: MIRTAZAPINE 15 MG TAB PO SCH (20:30)
[2017-02-17] MEDS: cefTRIAXone INJ 1,000 MG in SODIUM CHLORIDE 0.9% INJ 100 ML IV SCH (20:31)
[2017-02-18] VITALS (15 sets, daily range): BP systolic 107–140; BP diastolic 52–86; PULSE 85–116; RESP 17–31; TEMP 96.2–98.7; O2SAT 91–97
[2017-02-18] MEDS: CHLORHEXIDINE GLUCONATE 2 % 1 PACK (2 CLOTHS)(taper/protocol) TOPICAL SCH ×2 (03:12→20:32)
[2017-02-18] MEDS: SODIUM CHLOR 0.45% 1000 ML INJ 1,000 ML IV SCH (03:28)
[2017-02-18] MEDS: metroNIDAZOLE 500 MG TAB PO SCH ×3 (05:22→20:30)
[2017-02-18] MEDS: SERTRALINE HCL 100 MG TAB PO SCH (07:54)
[2017-02-18] MEDS: PANTOPRAZOLE SOD 40 MG DELAYED RELEASE TAB PO SCH (07:54)
[2017-02-18] MEDS: ASPIRIN EC 81 MG TABEC PO SCH (07:54)
[2017-02-18] MEDS: SODIUM CHLORIDE 0.9% FLUSH 10 ML FLUSH IV FLUSH SCH ×2 (08:21→20:32)
[2017-02-18] MEDS: DOCUSATE SODIUM 50 MG/SENNA 8.6 MG TAB PO SCH ×2 (08:21→20:30)
--- NOTE | 2017-02-18 10:02 | HHI.CCPN ---
Subjective Remarks/Hospital Course Patient is a 81-year-old female with a past medical history significant for CAD , hypertension, pacemaker placement, dementia and anxiety who presented to the emergency department with frontal headache, nausea and vomiting about 12 hours prior to presentation. Also complained about watery diarrhea for 2 days. She denied fever chills or abdominal pain. Her initial white count was 22.3 with left shift. BUN 20, Creatinine 1.26. CT of the abdomen/pelvis with no acute process. CT head also negative. Patient received Toradol, Compazine, Zofran, Benadryl for headache and became hypotensive in ED. Patient responded to 2 L fluid bolus and was admitted to the hospitalist service. Today around 4 AM, I was contacted by [facility] hospitalist Dr. Cadena as the patient 's blood pressure was trending down with MAP less than 60, systolic blood pressure in mid 80s. This was despite completing 3 L fluid bolus. Critical care medicine was consulted for persistent hypotension. I evaluated the patient. I have ordered fourth liter fluid bolus, and currently blood pressure has improved to systolic of 102. Patient remains tachycardic at a paced rhythm of 95 bpm. She had 3 episodes of diarrhea after arriving in the ICU. I have is requested for C. difficile, will start on by mouth Flagyl as well and continue IV hydration. Most likely hypotension is hypovolemic and due to probable sepsis 02/18 Patient is off Neosyn. Awake and alert. Afebrile. Objective Vital Signs Date Time Temp Pulse Resp B/P (MAP) Pulse Ox O2 Delivery O2 Flow Rate FiO2 02/18/17 09:00 103 25 133/60 (84) 95 02/18/17 04:00 98.6 02/17/17 20:46 Nasal Cannula 1.50 Intake and Output 02/18/17 02/18/17 02/19/17 08:00 16:00 00:00 Intake Total 2530 ml Output Total 1550 ml Balance 980 ml Result Diagram: 02/17/1740702/17/17407 Imaging Last Impressions Chest X-Ray 02/17/17 0000 Signed Impressions: Service Date/Time: February 03:09 - CONCLUSION: Left subclavian bipolar pacer. Lungs are clear. Tee Aparicio MD Head CT 11/15/17 0000 Signed Impressions: Service Date/Time: Thursday, February 16, 2017 16:27 - CONCLUSION: Atrophy otherwise negative Chuck Garcia MD FACR Abdomen/Pelvis CT 02/16/17 0000 Signed Impressions: Service Date/Time: Thursday, February 16, 2017 19:48 - CONCLUSION: 1. Mild to moderate hiatal hernia. 2. Hepatic cysts. 3. Degenerative change in lumbar spine. 4. Bilateral hip prostheses which do limit evaluation of the pelvis. Anuj Kaiser MD Objective Remarks GENERAL: 81 yo female lying in bed in NAD SKIN: Warm and dry. HEAD: Atraumatic. Normocephalic. EYES: Pupils equal round and reactive. No injection or drainage. ENT: Oral cavity is dry. Uvula midline. Airway patent. NECK: Supple, nontender, no meningeal signs. CARDIOVASCULAR:. RRR nl S1, S2 RESPIRATORY: Breath sounds equal bilaterally. No wheezes, rales, or rhonchi. GASTROINTESTINAL: Abdomen soft, non-tender, nondistended. No hepato-splenomegaly MUSCULOSKELETAL: Extremities without clubbing, cyanosis, or edema. NEUROLOGICAL: Awake and alert. Motor and sensory grossly within normal limits. Normal speech. No focal deficits grossly A/P Assessment and Plan ASSESSMENT: Resp Insuff Acute kidney injury Probable sepsis Leukocytosis Gastroenteritis Anxiety History of dementia Coronary artery disease History of hypertension PLAN: NEURO: - Minimize sedation. Hold buspirone and trazodone - Continue mirtazapine and sertraline RESP: - Nasal cannula oxygen, DuoNeb every 6 hours when necessary CV: - Received 3 L fluid bolus, given additional 1 L fluid bolus - Monitor HR and BP keep MAP>65mmHg -Echo showed EF 60-65% - Continue aspirin GI: - on Protonix, speech eval, diet per speech. : - Monitor renal function closely. Ct abdomen did not show any hydronephrosis ID: - Continue IV Rocephin, Flagyl - Follow-up on blood culture and urine culture C. difficile negative HEME: - Monitor CBC, CMP, coags ENDO: - Electrolyte replacement per protocol - TSH: 1.69, cortisol level 22.8 PROPH: - Bilateral lower extremity SCDs. Subcutaneous heparin,PO Protonix LINES: - Utilize peripheral IVs Will sign off and transfer care to HEP Level 2 Mignon Mckeon MD Feb 18, 2017 10:02
[2017-02-18] MEDS: HEPARIN SODIUM - SQ 10,000 UNITS/ML VIAL SQ SCH ×2 (10:36→20:31)
[2017-02-18] MEDS: SODIUM CHLOR 0.9% 1000 ML INJ 1,000 ML IV SCH ×2 (10:36→20:32)
--- NOTE | 2017-02-18 10:50 | ECHRPT ---
Indication: Hypotension CONCLUSIONS Normal left ventricular size. Wall thickness is normal. Normal wall motion. The left ventricular systolic function is normal with an estimated ejection fraction in the range of 60-65%. Structurally normal tricuspid valve. Trace tricuspid valve stenosis or regurgitation. BP: 153 / 107 HR: 105 Rhythm: MEASUREMENTS (Male / Female) Normal Values Technical Quality:Good 2D ECHO LV Diastolic Diameter PLAX 4.2 cm 4.2 - 5.9 / 3.9 - 5.3 cm LV Systolic Diameter PLAX 3.1 cm IVS Diastolic Thickness 0.7 cm 0.6 - 1.0 / 0.6 - 0.9 cm LVPW Diastolic Thickness 0.6 cm 0.6 - 1.0 / 0.6 - 0.9 cm LV Relative Wall Thickness 0.3 RV Internal Dim ED PLAX 1.8 cm LA Systolic Diameter LX 2.8 cm 3.0 - 4.0 / 2.7 - 3.8 cm DOPPLER Mitral E Point Velocity 96.3 cm/s Mitral A Point Velocity 131.0 cm/s Mitral E to A Ratio 0.7 TR Peak Velocity 259.0 cm/s TR Peak Gradient 26.8 mmHg FINDINGS LEFT VENTRICLE Normal left ventricular size. Wall thickness is normal. Normal wall motion. The left ventricular systolic function is normal with an estimated ejection fraction in the range of 60-65%. RIGHT VENTRICLE Normal right ventricular size and systolic function. LEFT ATRIUM The left atrial size is normal. RIGHT ATRIUM The right atrial size is normal. ATRIAL SEPTUM Normal atrial septal thickness without atrial level shunting by limited color doppler interrogation. AORTA The aortic root and proximal ascending aorta are normal in size on limited imaging. MITRAL VALVE Structurally normal mitral valve. No mitral valve stenosis or regurgitation. AORTIC VALVE Trileaflet aortic valve. No aortic valve stenosis or regurgitation. TRICUSPID VALVE Structurally normal tricuspid valve. Trace tricuspid valve stenosis or regurgitation. PULMONARY VALVE The pulmonary valve is not well visualized. VESSELS The inferior vena cava is normal in size. PERICARDIUM A small pleural effusion is noted. Silvano Dougherty MD (Electronically Signed) Final Date:18 February 2017 10:49
[2017-02-18 11:39] LABS: AUTOMATED NEUTROPHIL # 4.9 TH/MM3 (1.8-7.7); BASOPHIL % 0.3 % (0.0-2.0); EOSINOPHIL % 0.3 % (0.0-4.0); HEMATOCRIT 33.1 % (35.0-46.0); HEMO FLAGS DIFF FINAL; LYMPH % 13.1 % (9.0-44.0); LYMPHOCYTE # 0.8 TH/MM3 (1.0-4.8); MEAN CELL VOLUME 91.5 FL (80.0-100.0); MEAN CORPUSCULAR HGB CONC 32.8 % (32.0-36.0); MONO % 7.8 % (0.0-8.0); NEUT % 78.5 % (16.0-70.0); PLATELET COUNT 108 TH/MM3 (150-450); RED BLOOD COUNT 3.61 MIL/MM3 (4.00-5.30); RED CELL DISTRIBUTION WIDTH 14.6 % (11.6-17.2); WHITE BLOOD COUNT 6.2 TH/MM3 (4.0-11.0)
[2017-02-18 12:00] LABS: BICARBONATE 21.2 MEQ/L (21.0-32.0); MAGNESIUM 1.9 MG/DL (1.5-2.5); POTASSIUM 3.7 MEQ/L (3.5-5.1)
[2017-02-18] MEDS: ATORVASTATIN 40 MG TAB PO SCH (20:30)
[2017-02-18] MEDS: MIRTAZAPINE 15 MG TAB PO SCH (20:30)
[2017-02-18] MEDS: cefTRIAXone INJ 1,000 MG in SODIUM CHLORIDE 0.9% INJ 100 ML IV SCH (20:32)
[2017-02-19] VITALS (9 sets, daily range): BP systolic 114–170; BP diastolic 59–92; PULSE 70–89; RESP 16–20; TEMP 96.8–97.6; O2SAT 93–96
[2017-02-19] MEDS: metroNIDAZOLE 500 MG TAB PO SCH ×3 (06:31→21:39)
[2017-02-19 07:55] LABS: AUTOMATED NEUTROPHIL # 3.9 TH/MM3 (1.8-7.7); BASOPHIL % 0.5 % (0.0-2.0); EOSINOPHIL # 0.1 TH/MM3 (0-0.4); EOSINOPHIL % 2.6 % (0.0-4.0); HEMATOCRIT 31.6 % (35.0-46.0); HEMO FLAGS DIFF FINAL; LYMPH % 15.5 % (9.0-44.0); LYMPHOCYTE # 0.8 TH/MM3 (1.0-4.8); MEAN CORPUSCULAR HEMOGLOBIN 30.2 PG (27.0-34.0); MEAN CORPUSCULAR HGB CONC 33.6 % (32.0-36.0); MONO % 9.4 % (0.0-8.0); PLATELET COUNT 130 TH/MM3 (150-450); RED BLOOD COUNT 3.51 MIL/MM3 (4.00-5.30); RED CELL DISTRIBUTION WIDTH 14.9 % (11.6-17.2); WHITE BLOOD COUNT 5.4 TH/MM3 (4.0-11.0)
[2017-02-19 08:17] LABS: ALKALINE PHOSPHATASE 58 U/L (45-117); ALT (GPT) 13 U/L (10-53); ANION GAP 7 MEQ/L (5-15); AST (GOT) 19 U/L (15-37); BICARBONATE 21.5 MEQ/L (21.0-32.0); BLOOD UREA NITROGEN 11 MG/DL (7-18); CHLORIDE 115 MEQ/L (98-107); FREE T4 0.88 NG/DL (0.76-1.46); GLOMERULAR FILTRATION RATE 65 ML/MIN (>89); MAGNESIUM 1.9 MG/DL (1.5-2.5); POTASSIUM 3.5 MEQ/L (3.5-5.1); SODIUM (NA) 143 MEQ/L (136-145); TOTAL BILIRUBIN ADULT 0.2 MG/DL (0.2-1.0)
[2017-02-19] MEDS: DOCUSATE SODIUM 50 MG/SENNA 8.6 MG TAB PO SCH ×2 (09:00→21:39)
[2017-02-19] MEDS: ACETAMINOPHEN 325 MG TAB PO PRN (09:24)
[2017-02-19] MEDS: ASPIRIN EC 81 MG TABEC PO SCH (09:25)
[2017-02-19] MEDS: SERTRALINE HCL 100 MG TAB PO SCH (09:25)
[2017-02-19] MEDS: PANTOPRAZOLE SOD 40 MG DELAYED RELEASE TAB PO SCH (09:25)
[2017-02-19] MEDS: SODIUM CHLORIDE 0.9% FLUSH 10 ML FLUSH IV FLUSH SCH ×2 (09:26→21:39)
[2017-02-19] MEDS: HEPARIN SODIUM - SQ 10,000 UNITS/ML VIAL SQ SCH ×2 (09:31→21:41)
--- NOTE | 2017-02-19 10:26 | HHI.PR ---
Subjective Remarks Patient is a 81-year-old female with a past medical history significant for CAD , hypertension, pacemaker placement, dementia and anxiety who presented to the emergency department with frontal headache, nausea and vomiting about 12 hours prior to presentation. Also complained about watery diarrhea for 2 days. She denied fever chills or abdominal pain. Her initial white count was 22.3 with left shift. BUN 20, Creatinine 1.26. CT of the abdomen/pelvis with no acute process. CT head also negative. Patient received Toradol, Compazine, Zofran, Benadryl for headache and became hypotensive in ED. Patient responded to 2 L fluid bolus and was admitted to the hospitalist service. Today around 4 AM, I was contacted by [facility] hospitalist Dr. Cadena as the patient 's blood pressure was trending down with MAP less than 60, systolic blood pressure in mid 80s. This was despite completing 3 L fluid bolus. Critical care medicine was consulted for persistent hypotension. I evaluated the patient. I have ordered fourth liter fluid bolus, and currently blood pressure has improved to systolic of 102. Patient remains tachycardic at a paced rhythm of 95 bpm. She had 3 episodes of diarrhea after arriving in the ICU. I have is requested for C. difficile, will start on by mouth Flagyl as well and continue IV hydration. Most likely hypotension is hypovolemic and due to probable sepsis 02/18 Patient is off Neosyn. Awake and alert. Afebrile. 02-19 TRANSFERRED TO OUR SERVICE TODAY MORE ALERT BLOOD PRESSURE IS IMPROVED CULTURES NO GROWTH SO FAR DW RN AND PT LIVES IN [facility] AM LABS PT AND OT CONSULTS Objective Vitals Vital Signs Date Time Temp Pulse Resp B/P (MAP) Pulse Ox O2 Delivery O2 Flow Rate FiO2 02/19/17 08:10 96.8 86 16 134/75 (94) 96 02/19/17 04:00 97.2 83 16 127/66 (86) 94 02/19/17 00:00 97.4 89 17 117/59 (78) 93 02/18/17 20:29 85 02/18/17 20:00 98.7 89 18 107/60 (76) 95 02/18/17 17:00 96.2 88 18 137/73 (94) 96 02/18/17 12:31 101 31 137/62 (87) 97 11/17/17 12:00 102 25 140/68 (16) 94 I/O 02/18/17 02/18/17 02/18/17 02/19/17 02/19/17 02/19/17 07:00 15:00 23:00 07:00 15:00 23:00 Intake Total 2530 ml 321 ml 100 ml 840 ml Output Total 1550 ml Balance 980 ml 321 ml 100 ml 840 ml Intake Oral 440 ml 840 ml IV Total 2090 ml 321 ml 100 ml Output Urine Total 1550 ml # Voids 2 # Bowel Movements 2 1 Result Diagram: 02/19/17 0701 02/19/17 0701 Other Results Laboratory Tests Test 02/16/17 16:23 02/16/17 17:10 02/16/17 17:15 02/16/17 23:15 Prothrombin Time 10.7 SEC Prothromb Time International Ratio 1.0 RATIO Activated Partial Thromboplast Time 27.3 SEC Blood Urea Nitrogen 20 MG/DL Creatinine 1.26 MG/DL Random Glucose 128 MG/DL Total Protein 8.1 GM/DL Albumin 3.9 GM/DL Calcium Level 9.2 MG/DL Alkaline Phosphatase 95 U/L Aspartate Amino Transf (AST/SGOT) 33 U/L Alanine Aminotransferase (ALT/SGPT) 24 U/L Total Bilirubin 0.6 MG/DL Sodium Level 135 MEQ/L Potassium Level 4.8 MEQ/L Chloride Level 101 MEQ/L Carbon Dioxide Level 22.6 MEQ/L Anion Gap 11 MEQ/L Estimat Glomerular Filtration Rate 41 ML/MIN Lactic Acid Level 1.3 mmol/L Lipase 84 U/L Urine Color YELLOW Urine Turbidity HAZY Urine pH 5.5 Urine Specific [place] 1.023 Urine Protein 30 mg/dL Urine Glucose (UA) NEG mg/dL Urine Ketones TRACE mg/dL Urine Occult Blood NEG Urine Nitrite NEG Urine Bilirubin NEG Urine Urobilinogen 2.0 MG/DL Urine Leukocyte Esterase MOD Urine RBC 9 /hpf Urine WBC 6 /hpf Urine Squamous Epithelial Cells 5 /hpf Urine Amorphous Sediment RARE Urine Bacteria RARE /hpf Urine Hyaline Casts 47 /lpf Urine Mucus MANY /lpf Microscopic Urinalysis Comment CULT NOT INDICATED White Blood Count 22.3 TH/MM3 Red Blood Count 4.56 MIL/MM3 Hemoglobin 13.8 GM/DL Hematocrit 41.3 % Mean Corpuscular Volume 90.5 FL Mean Corpuscular Hemoglobin 30.3 PG Mean Corpuscular Hemoglobin Concent 33.5 % Red Cell Distribution Width 14.1 % Platelet Count 242 TH/MM3 Mean Platelet Volume 9.7 FL Neutrophils (%) (Auto) 91.3 % Lymphocytes (%) (Auto) 4.1 % Monocytes (%) (Auto) 4.2 % Eosinophils (%) (Auto) 0.1 % Basophils (%) (Auto) 0.3 % Neutrophils # (Auto) 20.4 TH/MM3 Lymphocytes # (Auto) 0.9 TH/MM3 Monocytes # (Auto) 0.9 TH/MM3 Eosinophils # (Auto) 0.0 TH/MM3 Basophils # (Auto) 0.1 TH/MM3 CBC Comment DIFF FINAL Differential Comment Nasal Screen MRSA (PCR) INVALID Test 02/17/17 04:08 02/17/17 04:33 02/17/17 05:32 02/17/17 09:30 White Blood Count 11.7 TH/MM3 Red Blood Count 3.79 MIL/MM3 Hemoglobin 11.3 GM/DL Hematocrit 34.8 % Mean Corpuscular Volume 91.8 FL Mean Corpuscular Hemoglobin 29.9 PG Mean Corpuscular Hemoglobin Concent 32.6 % Red Cell Distribution Width 14.9 % Platelet Count 140 TH/MM3 Mean Platelet Volume 9.0 FL Neutrophils (%) (Auto) 89.7 % Lymphocytes (%) (Auto) 4.5 % Monocytes (%) (Auto) 5.6 % Eosinophils (%) (Auto) 0.0 % Basophils (%) (Auto) 0.2 % Neutrophils # (Auto) 10.5 TH/MM3 Lymphocytes # (Auto) 0.5 TH/MM3 Monocytes # (Auto) 0.7 TH/MM3 Eosinophils # (Auto) 0.0 TH/MM3 Basophils # (Auto) 0.0 TH/MM3 CBC Comment DIFF FINAL Differential Comment Blood Urea Nitrogen 20 MG/DL Creatinine 1.20 MG/DL Random Glucose 140 MG/DL Total Protein 5.8 GM/DL Calcium Level 7.1 MG/DL Sodium Level 140 MEQ/L Potassium Level 3.6 MEQ/L Chloride Level 112 MEQ/L Carbon Dioxide Level 17.8 MEQ/L Anion Gap 10 MEQ/L Estimat Glomerular Filtration Rate 43 ML/MIN Protein Corrected Calcium 7.8 MG/DL Troponin I 0.03 NG/ML Thyroid Stimulating Hormone 3rd Gen 1.690 uIU/ML Random Cortisol 22.8 MCG/DL Lactic Acid Level 1.1 mmol/L Stool C. difficile Toxin (PCR) NEGATIVE Stl C. difficile Toxin Epiderm 027 PRESUMPTIVE NEGATIVE Test 02/18/17 10:40 02/19/17 07:01 White Blood Count 6.2 TH/MM3 5.4 TH/MM3 Red Blood Count 3.61 MIL/MM3 3.51 MIL/MM3 Hemoglobin 10.8 GM/DL 10.6 GM/DL Hematocrit 33.1 % 31.6 % Mean Corpuscular Volume 91.5 FL 90.0 FL Mean Corpuscular Hemoglobin 30.0 PG 30.2 PG Mean Corpuscular Hemoglobin Concent 32.8 % 33.6 % Red Cell Distribution Width 14.6 % 14.9 % Platelet Count 108 TH/MM3 130 TH/MM3 Mean Platelet Volume 9.2 FL 9.0 FL Neutrophils (%) (Auto) 78.5 % 72.0 % Lymphocytes (%) (Auto) 13.1 % 15.5 % Monocytes (%) (Auto) 7.8 % 9.4 % Eosinophils (%) (Auto) 0.3 % 2.6 % Basophils (%) (Auto) 0.3 % 0.5 % Neutrophils # (Auto) 4.9 TH/MM3 3.9 TH/MM3 Lymphocytes # (Auto) 0.8 TH/MM3 0.8 TH/MM3 Monocytes # (Auto) 0.5 TH/MM3 0.5 TH/MM3 Eosinophils # (Auto) 0.0 TH/MM3 0.1 TH/MM3 Basophils # (Auto) 0.0 TH/MM3 0.0 TH/MM3 CBC Comment DIFF FINAL DIFF FINAL Differential Comment Blood Urea Nitrogen 11 MG/DL 11 MG/DL Creatinine 0.95 MG/DL 0.85 MG/DL Random Glucose 84 MG/DL 83 MG/DL Calcium Level 7.9 MG/DL 8.2 MG/DL Phosphorus Level 1.9 MG/DL 2.3 MG/DL Magnesium Level 1.9 MG/DL 1.9 MG/DL Sodium Level 141 MEQ/L 143 MEQ/L Potassium Level 3.7 MEQ/L 3.5 MEQ/L Chloride Level 114 MEQ/L 115 MEQ/L Carbon Dioxide Level 21.2 MEQ/L 21.5 MEQ/L Anion Gap 6 MEQ/L 7 MEQ/L Estimat Glomerular Filtration Rate 57 ML/MIN 65 ML/MIN Total Protein 5.9 GM/DL Albumin 2.8 GM/DL Alkaline Phosphatase 58 U/L Aspartate Amino Transf (AST/SGOT) 19 U/L Alanine Aminotransferase (ALT/SGPT) 13 U/L Total Bilirubin 0.2 MG/DL Free Thyroxine 0.88 NG/DL Thyroid Stimulating Hormone 3rd Gen 1.980 uIU/ML Imaging Last Impressions Chest X-Ray 02/17/17 0000 Signed Impressions: Service Date/Time: February 03:09 - CONCLUSION: Left subclavian bipolar pacer. Lungs are clear. Tee Aparicio MD Head CT 02/16/17 0000 Signed Impressions: Service Date/Time: Thursday, February 16, 2017 16:27 - CONCLUSION: Atrophy otherwise negative Chuck Garcia MD FACR Abdomen/Pelvis CT 02/16/17 0000 Signed Impressions: Service Date/Time: Thursday, February 16, 2017 19:48 - CONCLUSION: 1. Mild to moderate hiatal hernia. 2. Hepatic cysts. 3. Degenerative change in lumbar spine. 4. Bilateral hip prostheses which do limit evaluation of the pelvis. Anuj Kaiser MD Objective Remarks GENERAL: Awake alert talkative and cooperative appears to be at her baseline which is probably chronically confused SKIN: Warm and dry. No obvious rashes HEAD: Atraumatic. Normocephalic. EYES: Pupils equal and round. No scleral icterus. No injection or drainage. Extraocular muscles intact ENT: No nasal bleeding or discharge. Mucous membranes pink and moist. Tongue is midline NECK: Trachea midline. No JVD. Neck is supple CARDIOVASCULAR: Regular rate and rhythm. S1-S2 no S3 or S4 RESPIRATORY: No accessory muscle use. Clear to auscultation. Breath sounds equal bilaterally. GASTROINTESTINAL: Abdomen soft, non-tender, nondistended. Hepatic and splenic margins not palpable. MUSCULOSKELETAL: Extremities without clubbing, cyanosis, or edema. No obvious deformities. NEUROLOGICAL: Awake and alert. No obvious cranial nerve deficits. Motor grossly within normal limits. 4 out of 5 muscle strength in the arms and legs. Normal speech. PSYCHIATRIC: INAppropriate mood and affect; insight and judgment ABnormal. Procedures NONE Medications and IVs Current Medications Ondansetron HCl (Zofran Inj) 4 mg ONCE ONCE IVP Last administered on t 16:40; Start 02/16/17 at 16:15; Stop 02/16/17 at 16:16; Status DC Sodium Chloride (NS Flush) 2 ml UNSCH PRN IV FLUSH FLUSH AFTER USING IV ACCESS ; Start 02/16/17 at 16:15; Stop 02/17/17 at 03:16; Status DC Acetaminophen (Tylenol) 650 mg ONCE ONCE PO Last administered on 02/16/17 16 :41; Start 02/16/17 at 16:15; Stop 02/16/17 at 16:16; Status DC Sodium Chloride 1,000 ml @ 999 mls/hr BOLUS ONCE IV Last administered on 18:24; Start 02/16/17 at 18:00; Stop 02/16/17 at 19:00; Status DC Ketorolac Tromethamine (Toradol Inj) 30 mg ONCE ONCE IV PUSH Last administered on 02/16/17 18:25; Start 02/16/17 at 18:15; Stop 02/16/17 at 18 :16; Status DC Prochlorperazine Edisylate (Compazine Inj) 5 mg ONCE ONCE IV PUSH Last administered on 02/16/17 18:24; Start 02/16/17 at 18:15; Stop 02/16/17 at 18 :16; Status DC Diphenhydramine HCl (Benadryl) 25 mg ONCE ONCE PO Last administered on 18:25; Start 02/16/17 at 18:15; Stop 02/16/17 at 18:16; Status DC Iohexol (Omnipaque 350 Inj) 80 ml STK-MED ONCE IVCONTRAST Last administered on 02/16/17 19:56; Start 02/16/17 at 19:56; Stop 02/16/17 at 19:57; Status DC Phenylephrine HCl 40 mg/Dextrose 500 ml @ 30 mls/hr TITRATE PRN IV Blood pressure management; Start 02/16/17 at 20:45; Stop 02/16/17 at 21:04; Status DC Terbutaline Sulfate (Brethine Inj) 1 mg UNSCH PRN SQ For Extravasation; Start 02/16/17 at 20:45; Stop 02/16/17 at 21:04; Status DC Ceftriaxone Sodium 1000 mg/ Sodium Chloride 100 ml @ 200 mls/hr ONCE ONCE IV Last administered on 02/16/17 20:57; Start 02/16/17 at 20:45; Stop 02/16/17 at 21:14; Status DC Sodium Chloride 1,000 ml @ 999 mls/hr BOLUS ONCE IV Last administered on 21:09; Start 02/16/17 at 21:15; Stop 02/16/17 at 22:15; Status DC Sodium Chloride 1,000 ml @ 999 mls/hr BOLUS ONCE IV Last administered on 21:38; Start 02/16/17 at 21:15; Stop 02/16/17 at 22:15; Status DC Sodium Chloride 1,000 ml @ 100 mls/hr Q10H IV Last administered on 02/18/17 03:28; Start 02/16/17 at 22:00; Stop 02/18/17 at 10:02; Status DC Sodium Chloride (NS Flush) 2 ml UNSCH PRN IV FLUSH FLUSH AFTER USING IV ACCESS ; Start 02/16/17 at 22:00 Sodium Chloride (NS Flush) 2 ml BID IV FLUSH Last administered on 02/19/17 09 :26; Start 02/17/17 at 09:00 Acetaminophen (Tylenol) 650 mg Q4H PRN PO TEMP > 100.4 Last administered on 09:24; Start 02/16/17 at 22:00 Ondansetron HCl (Zofran Inj) 4 mg Q6H PRN IVP NAUSEA OR VOMITING Last administered on 02/16/17 23:18; Start 02/16/17 at 22:00 Heparin Sodium (Porcine) (Heparin Inj) 5,000 units Q12H SQ Last administered on 02/19/17 09:31; Start 02/16/17 at 22:00 Naloxone HCl (Narcan Inj) 0.4 mg UNSCH PRN IV PUSH SEE LABEL COMMENTS; Start 02/16/17 at 22:00 Senna/Docusate Sodium (Kaitlin-Colace) 1 tab BID PO Last administered on 20:30; Start 02/17/17 at 09:00 Magnesium Hydroxide (Milk Of Magnesia Liq) 30 ml Q12H PRN PO Mild constipation ; Start 02/16/17 at 22:00 Sennosides (Senokot) 17.2 mg Q12H PRN PO Moderate constipation; Start at 22:00 Bisacodyl (Dulcolax Supp) 10 mg DAILY PRN RECTAL SEVERE CONSITIPATION; Start 02/16/17 at 22:00 Lactulose (Lactulose Liq) 30 ml DAILY PRN PO SEVERE CONSITIPATION; Start 02/16 at 22:00 Miscellaneous Information Patient in critical care unit? Ass... [id number] Last administered on 02/16/17 23:25; Start 02/16/17 at 23:30 Chlorhexidine Gluconate (Chlorhexidine 2% Cloth) 3 pack DAILY@04 TOPICAL Last administered on 02/18/17 03:12; Start 02/17/17 at 04:00; Stop 02/21/17 at 04 :01 Chlorhexidine Gluconate (Chlorhexidine 2% Cloth) 3 pack UNSCH PRN TOPICAL HYGIENIC CARE; Start 02/16/17 at 23:30; Stop 02/21/17 at 23:20 Pneumococcal Polyvalent Vaccine (Pneumovax-23 Inj) 25 mcg ONCE ONCE IM ; Start 02/17/17 at 10:00; Stop 02/17/17 at 10:01; Status DC Influenza Virus Vaccine (Flu (Quadrivalent) Vaccine Inj) 0.5 ml ONCE ONCE IM ; Start 02/17/17 at 10:00; Stop 02/17/17 at 10:01; Status DC Sodium Chloride 500 ml @ 500 mls/hr BOLUS ONCE IV Last administered on 03:15; Start 02/17/17 at 03:15; Stop 02/17/17 at 04:14; Status DC Ceftriaxone Sodium 1000 mg/ Sodium Chloride 100 ml @ 200 mls/hr Q24H IV Last administered on 02/18/17 20:32; Start 02/17/17 at 21:00 Aspirin (Ecotrin Ec) 81 mg DAILY PO Last administered on 02/19/17 09:25; Start 02/17/17 at 09:00 Atorvastatin Calcium (Lipitor) 40 mg HS PO Last administered on 02/18/17 20: 30; Start 02/17/17 at 21:00 Buspirone HCl (Buspar) 10 mg BID PO Last administered on 02/17/17 09:44; Start 02/17/17 at 09:00; Status Future Hold Mirtazapine (Remeron) 15 mg HS PO Last administered on 02/18/17 20:30; Start 02/17/17 at 21:00 Pantoprazole Sodium (Protonix) 40 mg DAILY PO Last administered on 02/19/17 09:25; Start 02/17/17 at 09:00 Sertraline HCl (Zoloft) 100 mg DAILY PO Last administered on 02/19/17 09:25; Start 02/17/17 at 09:00 Trazodone HCl (Desyrel) 50 mg TID PO Last administered on 02/17/17 09:44; Start 02/17/17 at 09:00; Status Future Hold Sodium Chloride 1,000 ml @ 999 mls/hr BOLUS ONCE IV Last administered on 04:15; Start 02/17/17 at 04:15; Stop 02/17/17 at 05:15; Status DC Phenylephrine HCl 40 mg/Dextrose 500 ml @ 30 mls/hr TITRATE PRN IV Blood pressure management Last administered on 02/17/17 06:19; Start 02/17/17 at 04 :15 Terbutaline Sulfate (Brethine Inj) 1 mg UNSCH PRN SQ For Extravasation; Start 02/17/17 at 04:15 Metronidazole (Flagyl) 500 mg Q8HR PO Last administered on 02/19/17 06:31; Start 02/17/17 at 06:00 Albuterol/ Ipratropium (Duoneb Neb) 1 ampule Q6HR NEB PRN NEB SHORTNESS OF BREATH; Start 02/17/17 at 05:15 Sodium Chloride 1,000 ml @ 75 mls/hr [id number] IV Last administered on 10:36; Start 02/18/17 at 10:00 A/P Assessment and Plan ASSESSMENT: Resp Insuff- IMPROVED Acute kidney injury Probable sepsis Leukocytosis Gastroenteritis Anxiety History of dementia Coronary artery disease History of hypertension PLAN: NEURO: - Minimize sedation. Hold buspirone and trazodone - Continue mirtazapine and sertraline RESP: - Nasal cannula oxygen, DuoNeb every 6 hours when necessary CV: - Received 3 L fluid bolus, given additional 1 L fluid bolus - Monitor HR and BP keep MAP>65mmHg -Echo showed EF 60-65% - Continue aspirin HAS HAD 5 PLUS LITERS OF FLUID NOW GI: - on Protonix, speech eval, diet per speech. : - Monitor renal function closely. Ct abdomen did not show any hydronephrosis ID: - Continue IV Rocephin, Flagyl - Follow-up on blood culture and urine culture C. difficile negative SWITCH TO PO FLAGYL HEME: - Monitor CBC, CMP, coags ENDO: - Electrolyte replacement per protocol - TSH: 1.69, cortisol level 22.8 PROPH: - Bilateral lower extremity SCDs. Subcutaneous heparin,PO Protonix LINES: - Utilize peripheral IVs PT AND OT AND CASE MANAGEMENT CONSULT Discharge Planning [facility] TO [facility] ON 02-21 Chuck Mathew DO Feb 19, 2017 10:26
[2017-02-19] MEDS ORDERED: NALOXONE HCL 0.4 MG/ML AMP IV PUSH PRN (14:15)
[2017-02-19] MEDS ORDERED: MORPHINE SULFATE 4 MG/ML INJ IV PUSH PRN ×2 (14:15)
[2017-02-19] MEDS: cloNIDine HCL 0.1 MG TAB PO PRN (14:48)
[2017-02-19] MEDS: oxyCODONE/ACETAMINOPHEN 10 MG/325 MG TAB PO PRN (14:49)
[2017-02-19] MEDS: CALCIUM/VITAMIN D 250 MG/125 U TAB PO SCH ×2 (14:51→21:41)
[2017-02-19] MEDS: cefTRIAXone INJ 1,000 MG in SODIUM CHLORIDE 0.9% INJ 100 ML IV SCH (21:34)
[2017-02-19] MEDS: CARVEDILOL 6.25 MG TAB PO SCH (21:39)
[2017-02-19] MEDS: MIRTAZAPINE 15 MG TAB PO SCH (21:39)
[2017-02-19] MEDS: ATORVASTATIN 40 MG TAB PO SCH (21:40)
[2017-02-19] MEDS: FERROUS SULFATE 325 MG (65 MG ELEMENTAL IRON) TAB PO SCH (21:41)
[2017-02-19] MEDS: CHLORHEXIDINE GLUCONATE 2 % 1 PACK (2 CLOTHS)(taper/protocol) TOPICAL SCH (21:41)
[2017-02-20] VITALS (8 sets, daily range): BP systolic 134–165; BP diastolic 71–86; PULSE 67–85; RESP 16–22; TEMP 96.2–98.6; O2SAT 94–97
[2017-02-20] MEDS: oxyCODONE/ACETAMINOPHEN 5 MG/325 MG TAB PO PRN (04:35)
[2017-02-20] MEDS: metroNIDAZOLE 500 MG TAB PO SCH (05:57)
[2017-02-20 07:14] LABS: AUTOMATED NEUTROPHIL # 3.4 TH/MM3 (1.8-7.7); BASOPHIL % 0.6 % (0.0-2.0); EOSINOPHIL # 0.2 TH/MM3 (0-0.4); EOSINOPHIL % 3.9 % (0.0-4.0); HEMATOCRIT 31.2 % (35.0-46.0); HEMO FLAGS DIFF FINAL; LYMPH % 20.3 % (9.0-44.0); LYMPHOCYTE # 1.1 TH/MM3 (1.0-4.8); MEAN CELL VOLUME 89.7 FL (80.0-100.0); MEAN CORPUSCULAR HEMOGLOBIN 30.6 PG (27.0-34.0); MEAN CORPUSCULAR HGB CONC 34.1 % (32.0-36.0); MONO % 9.8 % (0.0-8.0); NEUT % 65.4 % (16.0-70.0); PLATELET COUNT 128 TH/MM3 (150-450); RED BLOOD COUNT 3.48 MIL/MM3 (4.00-5.30); WHITE BLOOD COUNT 5.2 TH/MM3 (4.0-11.0)
[2017-02-20 07:32] LABS: ANION GAP 8 MEQ/L (5-15); AST (GOT) 13 U/L (15-37); BICARBONATE 20.8 MEQ/L (21.0-32.0); BLOOD UREA NITROGEN 10 MG/DL (7-18); CHLORIDE 112 MEQ/L (98-107); GLOMERULAR FILTRATION RATE 66 ML/MIN (>89); MAGNESIUM 1.7 MG/DL (1.5-2.5); POTASSIUM 3.5 MEQ/L (3.5-5.1); SODIUM (NA) 141 MEQ/L (136-145)
[2017-02-20 07:33] LABS: ALT (GPT) 12 U/L (10-53)
[2017-02-20 07:35] LABS: ALKALINE PHOSPHATASE 54 U/L (45-117); TOTAL BILIRUBIN ADULT 0.2 MG/DL (0.2-1.0)
[2017-02-20] MEDS: CARVEDILOL 6.25 MG TAB PO SCH ×2 (08:42→20:11)
[2017-02-20] MEDS: FERROUS SULFATE 325 MG (65 MG ELEMENTAL IRON) TAB PO SCH ×2 (08:42→20:11)
[2017-02-20] MEDS: PANTOPRAZOLE SOD 40 MG DELAYED RELEASE TAB PO SCH (08:43)
[2017-02-20] MEDS: CALCIUM/VITAMIN D 250 MG/125 U TAB PO SCH ×2 (08:43→20:11)
[2017-02-20] MEDS: SERTRALINE HCL 100 MG TAB PO SCH (08:43)
[2017-02-20] MEDS: DOCUSATE SODIUM 50 MG/SENNA 8.6 MG TAB PO SCH ×2 (08:43→20:11)
[2017-02-20] MEDS: ASPIRIN EC 81 MG TABEC PO SCH (08:43)
[2017-02-20] MEDS: CETIRIZINE HCL 10 MG TAB PO SCH (08:43)
[2017-02-20] MEDS: SODIUM CHLORIDE 0.9% FLUSH 10 ML FLUSH IV FLUSH SCH ×2 (08:44→20:10)
[2017-02-20] MEDS: ACETAMINOPHEN 325 MG TAB PO PRN (08:56)
[2017-02-20] MEDS: HEPARIN SODIUM - SQ 10,000 UNITS/ML VIAL SQ SCH ×2 (09:44→21:05)
[2017-02-20 10:01] LABS: HEMOGLOBIN A1b 1.1 %; HEMOGLOBIN Ao 83.9 %; HEMOGLOBIN P3 4.1 %
[2017-02-20] MEDS: oxyCODONE/ACETAMINOPHEN 10 MG/325 MG TAB PO PRN ×2 (11:56→18:39)
[2017-02-20] MEDS: cloNIDine HCL 0.1 MG TAB PO PRN ×2 (11:58→20:12)
--- NOTE | 2017-02-20 15:55 | HHI.PR ---
Subjective Remarks Feeling better. Still has a headache. Just received Percocet. Objective Vitals Vital Signs Date Time Temp Pulse Resp B/P (MAP) Pulse Ox O2 Delivery O2 Flow Rate FiO2 02/20/17 11:34 97.4 78 16 160/82 (108) 96 02/20/17 10:06 69 02/20/17 08:53 73 134/71 (92) 02/20/17 07:41 97.3 78 16 148/76 (100) 96 02/20/17 05:40 18 02/20/17 04:00 97.3 73 20 140/82 (101) 96 02/20/17 00:00 98.6 75 20 139/78 (98) 96 02/19/17 20:04 70 02/19/17 20:00 97.6 77 20 114/71 (85) 96 02/19/17 16:00 79 I/O 02/19/17 02/19/17 02/19/17 02/20/17 02/20/17 02/20/17 07:00 15:00 23:00 07:00 15:00 23:00 Intake Total 840 ml 480 ml 100 ml 400 ml Balance 840 ml 480 ml 100 ml 400 ml Intake Oral 840 ml 480 ml 400 ml IV Total 100 ml # Voids 2 5 7 # Bowel Movements 1 2 1 1 Result Diagram: 02/20/17 0634 02/20/17 0634 Imaging Last Impressions Chest X-Ray 02/17/17 0000 Signed Impressions: Service Date/Time: February 03:09 - CONCLUSION: Left subclavian bipolar pacer. Lungs are clear. Tee Aparicio MD Head CT 02/16/17 0000 Signed Impressions: Service Date/Time: Thursday, February 16, 2017 16:27 - CONCLUSION: Atrophy otherwise negative Chuck Garcia MD FACR Abdomen/Pelvis CT 02/16/17 0000 Signed Impressions: Service Date/Time: Thursday, February 16, 2017 19:48 - CONCLUSION: 1. Mild to moderate hiatal hernia. 2. Hepatic cysts. 3. Degenerative change in lumbar spine. 4. Bilateral hip prostheses which do limit evaluation of the pelvis. Anuj Kaiser MD Objective Remarks GENERAL: No acute distress. CARDIOVASCULAR: Regular rate and rhythm. RESPIRATORY: No accessory muscle use. Clear to auscultation. Breath sounds equal bilaterally. GASTROINTESTINAL: Abdomen soft, non-tender, nondistended. MUSCULOSKELETAL: Extremities without clubbing, cyanosis, or edema. No obvious deformities. NEUROLOGICAL: Awake and alert. No obvious cranial nerve deficits. Motor grossly within normal limits. Five out of 5 muscle strength in the arms and legs. Normal speech. PSYCHIATRIC: Appropriate mood and affect; insight and judgment normal. Procedures NONE A/P Assessment and Plan 81-year-old female with a past medical history significant for CAD, hypertension , pacemaker placement, dementia and anxiety who presented to the emergency department with frontal headache, nausea and vomiting about 12 hours prior to presentation. Also complained about watery diarrhea for 2 days. The patient subsequently went into Hypovolemic shock, requiring pressors and was transferred to the critical care service. She is improving and back on the floor. Hypovolemic shock: There were concerns for sepsis but all cultures are negative. C diff negative. - S/P aggressive resuscitation with IVF and pressors. BP normalized and elevated. - DC IVF. Since there are no signs of infection. DC antibiotics and monitor History of HTN: Hypotensive on presentation. BP now elevated. - Resume Coreg. Clonidine PRN. Anxiety: Continue home meds History of dementia Coronary artery disease -Continue home meds PROPH: - Bilateral lower extremity SCDs. Subcutaneous heparin,PO Protonix Discharge Planning Plan to DC tomorrow if remain stable. Blair Herring MD Feb 20, 2017 15:55
[2017-02-20] MEDS: ATORVASTATIN 40 MG TAB PO SCH (20:11)
[2017-02-20] MEDS: MIRTAZAPINE 15 MG TAB PO SCH (20:12)
[2017-02-21] VITALS: BP 160/71; PULSE 71; RESP 18; TEMP 95.9; O2SAT 95
[2017-02-21] MEDS: cloNIDine HCL 0.1 MG TAB PO PRN (00:47)
[2017-02-21] MEDS: oxyCODONE/ACETAMINOPHEN 5 MG/325 MG TAB PO PRN (00:49)
[2017-02-21 04:00] VITALS: BP 133/65; PULSE 65; RESP 18; TEMP 95.7; O2SAT 95
[2017-02-21] MEDS: CHLORHEXIDINE GLUCONATE 2 % 1 PACK (2 CLOTHS)(taper/protocol) TOPICAL SCH (04:00)
[2017-02-21 08:00] VITALS: BP 141/77; PULSE 67; RESP 20; TEMP 96.4; O2SAT 96
[2017-02-21] MEDS: CARVEDILOL 6.25 MG TAB PO SCH (09:29)
[2017-02-21] MEDS: HEPARIN SODIUM - SQ 10,000 UNITS/ML VIAL SQ SCH (09:30)
[2017-02-21] MEDS: DOCUSATE SODIUM 50 MG/SENNA 8.6 MG TAB PO SCH (09:30)
[2017-02-21] MEDS: PANTOPRAZOLE SOD 40 MG DELAYED RELEASE TAB PO SCH (09:30)
[2017-02-21] MEDS: ASPIRIN EC 81 MG TABEC PO SCH (09:30)
[2017-02-21] MEDS: SERTRALINE HCL 100 MG TAB PO SCH (09:30)
[2017-02-21] MEDS: SODIUM CHLORIDE 0.9% FLUSH 10 ML FLUSH IV FLUSH SCH (09:31)
[2017-02-21] MEDS: FERROUS SULFATE 325 MG (65 MG ELEMENTAL IRON) TAB PO SCH (09:31)
[2017-02-21] MEDS: CALCIUM/VITAMIN D 250 MG/125 U TAB PO SCH (09:31)
[2017-02-21] MEDS: CETIRIZINE HCL 10 MG TAB PO SCH (09:31)
[2017-02-21] MEDS: ACETAMINOPHEN 325 MG TAB PO PRN (09:32)
--- NOTE | 2017-02-21 09:42 | HHI.DCPOC ---
Discharge Care Plan Diagnosis: (1) Gastroenteritis (2) Headache (3) Hypotension (4) Generalized weakness Goals to Promote Your Health * To prevent worsening of your condition and complications * To maintain your health at the optimal level Directions to Meet Your Goals Take your medications as prescribed Follow your dietary instruction Follow activity as directed Keep your appointments as scheduled Take your immunizations and boosters as scheduled If your symptoms worsen call your PCP, if no PCP go to Urgent Care Center or Emergency Room Smoking is Dangerous to Your Health. Avoid second hand smoke Call the 24-hour hour crisis hotline for domestic abuse at Blair Herring MD Feb 21, 2017 09:42
--- NOTE | 2017-02-21 09:43 | HHI.FF ---
Face to Face Verification Diagnosis: (1) Hypertension (2) Generalized weakness (3) Gastroenteritis Physical Therapy Order: Evaluate and Treat, Improve ambulation, Strength and gait training Home Health Nursing Order: Medical education Medication education-adverse effect Nursing assessment with vital signs I have seen patient Madonna Portillo on 02/21/17. My clinical findings support the need for the requested home health care services because: Deconditioned w/ increased weakness Need for psychosocial assistance I certify that my clinical findings support that this patient is homebound because: Need for psychosocial assistance Blair Herring MD Feb 21, 2017 09:43
--- NOTE | 2017-02-21 09:44 | HHI.DS ---
Discharge Summary Admission Date Feb 16, 2017 at 21:44 Discharge Date: Feb 21, 2017 Admitting Diagnosis HYPOTENSION(RESPONSIVE TO FLUIDS), UTI, LEUKOCYTOSIS (1) Hypotension ICD Code: I95.9 - Hypotension, unspecified (2) Gastroenteritis ICD Code: K52.9 - Noninfective gastroenteritis and colitis, unspecified (3) Generalized weakness ICD Code: R53.1 - Weakness Status: Acute Procedures NONE Brief History - From Admission History of present illness from the admitting physician 81-year-old female with a past medical history significant for CAD with pacemaker placement, hypertension, dementia and anxiety presents to the emergency department for evaluation of headache, nausea and vomiting since midnight last night. Patient endorses nonbloody nonbilious emesis 4 or 5 times. The patient also endorses associated shortness of breath. She denies fever/chills/diarrhea/abdominal pain. Lab values significant for a white blood cell count of 22.3 with a left shift. Creatinine 1.26, baseline 1. CT of the abdomen/pelvis with no acute process. In the ED, the patient was treated with Compazine, Zofran, Benadryl and Toradol without alleviation of her symptoms. She then became acutely hypotensive with a blood pressure of 81/53. The patient was given a 2 L bolus of IV fluids with subsequent improvement in her blood pressure. Pressors were never started. The patient was admitted to the care unit for close monitoring. CBC/BMP: 02/20/17 0634 02/20/17 0634 Significant Findings Laboratory Tests Test 02/18/17 10:40 02/19/17 07:01 02/20/17 06:34 Red Blood Count 3.61 MIL/MM3 (4.00-5.30) 3.51 MIL/MM3 (4.00-5.30) 3.48 MIL/MM3 (4.00-5.30) Hemoglobin 10.8 GM/DL (11.6-15.3) 10.6 GM/DL (11.6-15.3) 10.6 GM/DL (11.6-15.3) Hematocrit 33.1 % (35.0-46.0) 31.6 % (35.0-46.0) 31.2 % (35.0-46.0) Platelet Count 108 TH/MM3 (150-450) 130 TH/MM3 (150-450) 128 TH/MM3 (150-450) Neutrophils (%) (Auto) 78.5 % (16.0-70.0) 72.0 % (16.0-70.0) Lymphocytes # (Auto) 0.8 TH/MM3 (1.0-4.8) 0.8 TH/MM3 (1.0-4.8) Calcium Level 7.9 MG/DL (8.5-10.1) 8.2 MG/DL (8.5-10.1) 8.1 MG/DL (8.5-10.1) Phosphorus Level 1.9 MG/DL (2.5-4.9) 2.3 MG/DL (2.5-4.9) 1.8 MG/DL (2.5-4.9) Chloride Level 114 MEQ/L (98-107) 115 MEQ/L (98-107) 112 MEQ/L (98-107) Estimat Glomerular Filtration Rate 57 ML/MIN (>89) 65 ML/MIN (>89) 66 ML/MIN (>89) Monocytes (%) (Auto) 9.4 % (0.0-8.0) 9.8 % (0.0-8.0) Total Protein 5.9 GM/DL (6.4-8.2) 5.8 GM/DL (6.4-8.2) Albumin 2.8 GM/DL (3.4-5.0) 2.7 GM/DL (3.4-5.0) Hemoglobin A1c 6.5 % (4.3-6.0) Aspartate Amino Transf (AST/SGOT) 13 U/L (15-37) Carbon Dioxide Level 20.8 MEQ/L (21.0-32.0) Imaging Last Impressions Chest X-Ray 02/17/17 0000 Signed Impressions: Service Date/Time: February 03:09 - CONCLUSION: Left subclavian bipolar pacer. Lungs are clear. Tee Aparicio MD Head CT 02/16/17 0000 Signed Impressions: Service Date/Time: Thursday, February 16, 2017 16:27 - CONCLUSION: Atrophy otherwise negative Chuck Garcia MD FACR Abdomen/Pelvis CT 02/16/17 0000 Signed Impressions: Service Date/Time: Thursday, February 16, 2017 19:48 - CONCLUSION: 1. Mild to moderate hiatal hernia. 2. Hepatic cysts. 3. Degenerative change in lumbar spine. 4. Bilateral hip prostheses which do limit evaluation of the pelvis. Anuj Kaiser MD PE at Discharge GENERAL: No acute distress. CARDIOVASCULAR: Regular rate and rhythm. RESPIRATORY: No accessory muscle use. Clear to auscultation. Breath sounds equal bilaterally. GASTROINTESTINAL: Abdomen soft, non-tender, nondistended. MUSCULOSKELETAL: Extremities without clubbing, cyanosis, or edema. No obvious deformities. NEUROLOGICAL: Awake and alert. No obvious cranial nerve deficits. Motor grossly within normal limits. Five out of 5 muscle strength in the arms and legs. Normal speech. PSYCHIATRIC: Appropriate mood and affect; insight and judgment normal. Pt update on day of discharge Patient reports she is feeling well today. Headache has improved. Hospital Course 81-year-old female with a past medical history significant for CAD, hypertension , pacemaker placement, dementia and anxiety who presented to the emergency department with left frontal headache, nausea and vomiting about 12 hours prior to presentation. Also complained about watery diarrhea for 2 days. The patient subsequently went into Hypovolemic shock and was transferred to the critical care service. Evaluation and treatment course detailed below: Hypovolemic shock: There were concerns for sepsis but all cultures are negative. C diff negative. Symptoms probably related to dehydration from gastroenteritis. - S/P aggressive resuscitation with IVF. BP normalized and elevated. - Antibiotics and IV fluid have since been discontinued. History of HTN: Hypotensive on presentation. BP normalized. Coreg resumed. - Patient advised to follow-up with PCP Anxiety: Continue home meds Headache: Head CT unremarkable. Headache improved. History of dementia Coronary artery disease -Continue home meds Pt Condition on Discharge: Good Discharge Disposition: [facility] Discharge Time: > 30 minutes Discharge Instructions DIET: Follow Instructions for: Heart Healthy Diet Speech Therapy-Diet Recommends: Regular Activities you can perform: Regular-No Restrictions Continued Medications: Aspirin DR (Aspir-81) 81 Mg Tabdr 81 MG PO DAILY Atorvastatin (Atorvastatin) 40 Mg Tab 40 MG PO HS for Cholesterol Management, #30 TAB 0 Refills Buspirone (Buspirone) 10 Mg Tab 10 MG PO BID for Anxiety, TAB 0 Refills Calcium Carbonate-Cholecalciferol (Calcium 500 +D) 500-400 Mg-Unit Tab 1 TAB PO BID for Calcium Supplement, TAB 0 Refills Carvedilol (Carvedilol) 6.25 Mg Tab 6.25 MG PO BID, #60 TAB 0 Refills Clobetasol Topical (Clobetasol Topical) 0.05% Cream 1 APPLIC TOPICAL BID, #30 GM 0 Refills Collagenase Topical (Santyl Topical) 250 Unit/Gm Oint 1 APPLIC TOPICAL DAILY for Wound Management, #15 GM 0 Refills Ferrous Sulfate (Ferosul) 220 Mg/5 Ml Elx 325 MG PO BID Levocetirizine (Levocetirizine) 5 Mg Tab 5 MG PO DAILY for Allergy Management, #30 TAB 0 Refills Mirtazapine (Mirtazapine) 15 Mg Tab 15 MG PO HS for Depression Control, #30 TAB 0 Refills Pantoprazole (Pantoprazole) 40 Mg Tab 40 MG PO DAILY for Reflux, #30 TAB 0 Refills Sertraline (Sertraline) 100 Mg Tab 100 MG PO DAILY, #30 TAB 0 Refills Triamcinolone Topical (Triamcinolone Topical) 0.025 % Oint 1 APPLIC TOPICAL BID for Inflammation, GM 0 Refills Discontinued Medications: Aspirin (Aspirin) 81 Mg Tabdr 81 MG PO DAILY, TAB Trazodone (Trazodone) 50 Mg Tab 50 MG PO TID for Control Depression, #90 TAB 0 Refills Blair Herring MD Feb 21, 2017 09:44
[2017-02-21 11:24] VITALS: PULSE 66
== END 2017-02-21 11:53 | DRG 682 ==
LOC: NEPD 15:26 → NEDA 21:44 → HIMN 23:05 → N06B 02-18 16:21 → N06A 02-19 18:52
PROVIDERS: ADMIT Family Medicine; ATTEND Family Medicine
DX: N17.9 Acute kidney failure, unspecified (principal); R57.1 Hypovolemic shock; K52.9 Noninfective gastroenteritis and colitis, unspecified; F03.90 Unspecified dementia, unspecified severity, without behavioral disturbance, psychotic disturbance, mood disturbance, and anxiety; I10 Essential (primary) hypertension; I25.10 Atherosclerotic heart disease of native coronary artery without angina pectoris; K44.9 Diaphragmatic hernia without obstruction or gangrene; E78.00 Pure hypercholesterolemia, unspecified; F32.9 Major depressive disorder, single episode, unspecified; F41.9 Anxiety disorder, unspecified; Z95.0 Presence of cardiac pacemaker
CPT/HCPCS: 70450; 71010; 74177; 76937; 80048; 80053; 81001; 82533; 82948; 83036; 83605; 83690; 83735; 84100; 84155; 84439; 84443; 84484; 85025; 85610; 85730; 87040; 87086; 87493; 87641; 93005; 93306; 96361; 96365; 96375; J0696; J0780; J1644; J1885; J2370; J2405; J7030; J7040; J7060; Q9967

== ENCOUNTER 2017-03-08 16:08 | Emergency (ER) | payer MEDICARE, OTHER ==
[~2017-03-08 16:08] MED LIST changes: -ASPI1TAB69 PO; +ASPI81TA81 PO; -TRAZ50TA12 PO
[2017-03-08 16:35] VITALS: BP 166/90; PULSE 106; RESP 20; TEMP 98.1; O2SAT 95
[2017-03-08 16:38] VITALS: BP 166/90; PULSE 107; RESP 20; O2SAT 95
--- NOTE | 2017-03-08 17:27 | PD ---
HPI . Rash Chief Complaint: Skin Problem Time Seen by Provider: 16:36 Travel History International Travel<30 days: No Contact w/Intl Traveler<30days: No Traveled to known affect area: No History of Present Illness HPI 81-year-old female presents emergency department for evaluation of bilateral erythematous tender rash to her bilateral inner upper thighs. Patient states that the rash started this morning. The rash extends from the groin down to the medial aspect of the thigh. Patient denies any fever, chills, malaise. Patient denies any shortness breath, chest pain, nausea, vomiting, diarrhea. The rash is localized PFSH Past Medical History Blood Disorders: No Cancer: No High Cholesterol: No Chest Pain: Yes (3 years ago) Congestive Heart Failure: No Endocrine: No Gastrointestinal Disorders: Yes Genitourinary: No Hypertension: Yes Implanted Vascular Access Dvce: Yes Musculoskeletal: No Neurologic: Yes (Dementia) Psychiatric: No Reproductive: Yes (Hysterectomy) Respiratory: No Past Surgical History Abdominal Surgery: Yes (Appendectomy) Appendectomy: Yes Body Medical Devices: pacemaker Cardiac Surgery: Yes (Left ventricular pacemaker) Pacemaker: Yes Other Surgery: Yes (toe surgery, back surgery, appendix) Social History Alcohol Use: No Tobacco Use: No Substance Use: No Allergies-Medications (Allergen,Severity, Reaction): Coded Allergies: No Known Allergies (Unverified Allergy, Unknown, 03/08/17) Reported Meds & Prescriptions Reported Meds & Active Scripts Active Reported Aspir-81 (Aspirin) 81 Mg Tabdr 81 Mg PO DAILY Triamcinolone Topical 0.025 % Oint 1 Applic TOPICAL BID Sertraline (Sertraline HCl) 100 Mg Tab 100 Mg PO DAILY Santyl Topical (Collagenase) 250 Unit/Gm Oint 1 Applic TOPICAL DAILY Pantoprazole (Pantoprazole Sodium) 40 Mg Tab 40 Mg PO DAILY Mirtazapine 15 Mg Tab 15 Mg PO HS Levocetirizine 5 Mg Tab 5 Mg PO DAILY Ferosul (Ferrous Sulfate) 220 Mg/5 Ml Elx 325 Mg PO BID Clobetasol Topical (Clobetasol Propionate) 0.05% Cream 1 Applic TOPICAL BID Carvedilol 6.25 Mg Tab 6.25 Mg PO BID Calcium 500 +D (Calcium Carbonate-Cholecalciferol) 500-400 Mg-Unit Tab 1 Tab PO BID Buspirone (Buspirone HCl) 10 Mg Tab 10 Mg PO BID Atorvastatin (Atorvastatin Calcium) 40 Mg Tab 40 Mg PO HS Review of Systems Except as stated in HPI: all other systems reviewed are Neg Physical Exam Narrative GENERAL: Well-nourished, well-developed 81-year-old female patient in no acute distress. Nontoxic appearing. SKIN: Focused skin assessment warm/dry. HEAD: Normocephalic. Atraumatic. EYES: No scleral icterus. No injection or drainage. NECK: Supple, trachea midline. No JVD or lymphadenopathy. CARDIOVASCULAR: Regular rate and rhythm without murmurs, gallops, or rubs. RESPIRATORY: Breath sounds equal bilaterally. No accessory muscle use. GASTROINTESTINAL: Abdomen soft, non-tender, nondistended. MUSCULOSKELETAL: No cyanosis, or edema. BACK: Nontender without obvious deformity. No CVA tenderness. Data Data Last Documented VS Vital Signs Date Time Temp Pulse Resp B/P (MAP) Pulse Ox O2 Delivery O2 Flow Rate FiO2 03/08/17 18:00 90 20 150/92 (111) 96 03/08/17 16:38 Room Air 03/08/17 16:35 98.1 Orders Orders Complete Blood Count With Diff (03/08/17 16:37) Basic Metabolic Panel (Bmp) (03/08/17 16:37) Acetamin-Hydrocod 325-5 Mg ([place] 5-325 (03/08/17 18:00) Fluconazole (Diflucan) (03/08/17 19:15) Nystatin Oint (Mycostatin Oint) (03/08/17 19:15) Labs Laboratory Tests Test 03/08/17 17:05 03/08/17 17:20 Blood Urea Nitrogen 18 MG/DL Creatinine 1.04 MG/DL Random Glucose 104 MG/DL Calcium Level 9.4 MG/DL Sodium Level 132 MEQ/L Potassium Level 4.6 MEQ/L Chloride Level 102 MEQ/L Carbon Dioxide Level 22.8 MEQ/L Anion Gap 7 MEQ/L Estimat Glomerular Filtration Rate 51 ML/MIN White Blood Count 11.9 TH/MM3 Red Blood Count 4.64 MIL/MM3 Hemoglobin 13.8 GM/DL Hematocrit 42.3 % Mean Corpuscular Volume 91.2 FL Mean Corpuscular Hemoglobin 29.7 PG Mean Corpuscular Hemoglobin Concent 32.6 % Red Cell Distribution Width 14.4 % Platelet Count 210 TH/MM3 Mean Platelet Volume 9.8 FL Neutrophils (%) (Auto) 78.1 % Lymphocytes (%) (Auto) 9.4 % Monocytes (%) (Auto) 11.4 % Eosinophils (%) (Auto) 0.7 % Basophils (%) (Auto) 0.4 % Neutrophils # (Auto) 9.3 TH/MM3 Lymphocytes # (Auto) 1.1 TH/MM3 Monocytes # (Auto) 1.4 TH/MM3 Eosinophils # (Auto) 0.1 TH/MM3 Basophils # (Auto) 0.0 TH/MM3 CBC Comment AUTO DIFF Differential Total Cells Counted 100 Neutrophils % (Manual) 74 % Band Neutrophils % 4 % Lymphocytes % 12 % Monocytes % 5 % Eosinophils % 1 % Basophils % 4 % Neutrophils # (Manual) 9.3 TH/MM3 Differential Comment FINAL DIFF MANUAL Platelet Estimate NORMAL Platelet Morphology Comment NORMAL MDM Medical Decision Making Medical Screen Exam Complete: Yes Emergency Medical Condition: Yes Differential Diagnosis Differential diagnoses include but are not limited to skin yeast infection, cellulitis, abscess Narrative Course 81 year old female presents to the emergency department for evaluation of rash to her bilateral inner upper thigh. Upon assessment it is noted that the patient leaks small amounts of urine. Patient case discussed with my attending, Dr Garcia. The rash clinically presents as candidal intertrigo. Patient states the pain is significant. Lortab by mouth ordered for pain management. Skin care performed and Nystatin oint applied. Patient is given a dose of fluconazole in our facility and discharged home with a prescription for Nystatin Oint. Patient instructed to keep the area clean and dry and apply Nystatin Oint twice a day. Patient instructed to return to the emergency department with any worsening condition but otherwise follow up with her primary care. Diagnosis Primary Impression: Skin yeast infection Referrals: Primary Care Physician Patient Instructions: General Instructions, Skin Yeast Infection (ED) Additional Instructions: Please return to emergency department if your symptoms return or worsen. Follow up with your primary care provider. Take medications as prescribed. Keep area clean and dry. Med/Other Pt SpecificInfo: Prescription(s) given Scripts Nystatin Topical (Nystatin Topical) 100,000 unit/gm Cream 1 APPLIC TOPICAL BID for Infection, #15 GM 0 Refills Prov: Concepcion Nick 03/08/17 Disposition: DISCHARGE HOME Condition: Stable Concepcion Nick Mar 08, 2017 17:27
[2017-03-08 17:53] LABS: BICARBONATE 22.8 MEQ/L (21.0-32.0)
[2017-03-08 17:56] LABS: POTASSIUM 4.6 MEQ/L (3.5-5.1)
[2017-03-08 17:56] LABS: AUTOMATED NEUTROPHIL # 9.3 TH/MM3 (1.8-7.7); BASOPHIL % 0.4 % (0.0-2.0); EOSINOPHIL # 0.1 TH/MM3 (0-0.4); EOSINOPHIL % 0.7 % (0.0-4.0); HEMATOCRIT 42.3 % (35.0-46.0); LYMPH % 9.4 % (9.0-44.0); LYMPHOCYTE # 1.1 TH/MM3 (1.0-4.8); MEAN CELL VOLUME 91.2 FL (80.0-100.0); MEAN CORPUSCULAR HEMOGLOBIN 29.7 PG (27.0-34.0); MEAN CORPUSCULAR HGB CONC 32.6 % (32.0-36.0); MONO % 11.4 % (0.0-8.0); NEUT % 78.1 % (16.0-70.0); PLATELET COUNT 210 TH/MM3 (150-450); RED BLOOD COUNT 4.64 MIL/MM3 (4.00-5.30); RED CELL DISTRIBUTION WIDTH 14.4 % (11.6-17.2); WHITE BLOOD COUNT 11.9 TH/MM3 (4.0-11.0)
[2017-03-08 18:00] VITALS: BP 150/92; PULSE 90; RESP 20; O2SAT 96
[2017-03-08] MEDS ORDERED: ACETAMINOPHEN/HYDROcodone 325 MG/5 MG TAB PO ONE (18:00)
[2017-03-08 18:04] LABS: HEMO FLAGS AUTO DIFF
[2017-03-08 18:51] LABS: BANDS 4 % (0-6); BASOPHILS 4 % (0-2); EOSINOPHILS 1 % (0-4); NEUTROPHIL # MANUAL DIFF 9.3 TH/MM3 (1.8-7.7); PLATELET ESTIMATE SMEAR NORMAL (NORMAL); PLATELET MORPHOLOGY NORMAL (NORMAL); POLYS (SEG NEUTROPHILS) 74 % (16-70); SCAN/DIFF FINAL DIFF MANUAL; WBC DIFF SAMPLE 100
[2017-03-08] MEDS ORDERED: NYSTATIN 100,000 U/GM OINT 15 GM TUBE TOPICAL ONE (19:15)
[2017-03-08] MEDS ORDERED: FLUCONAZOLE 100 MG TAB PO ONE (19:15)
[2017-03-08] MEDS ORDERED: NYST15T TOPICAL (19:16)
--- NOTE | 2017-03-08 19:55 | PD ---
Data Data Last Documented VS Vital Signs Date Time Temp Pulse Resp B/P (MAP) Pulse Ox O2 Delivery O2 Flow Rate FiO2 03/08/17 18:00 90 20 150/92 (111) 96 03/08/17 16:38 Room Air 03/08/17 16:35 98.1 Orders Orders Complete Blood Count With Diff (03/08/17 16:37) Basic Metabolic Panel (Bmp) (03/08/17 16:37) Acetamin-Hydrocod 325-5 Mg ([place] 5-325 (03/08/17 18:00) Fluconazole (Diflucan) (03/08/17 19:15) Nystatin Oint (Mycostatin Oint) (03/08/17 19:15) Ed Discharge Order (03/08/17 19:31) Labs Laboratory Tests Test 03/08/17 17:05 03/08/17 17:20 Blood Urea Nitrogen 18 MG/DL Creatinine 1.04 MG/DL Random Glucose 104 MG/DL Calcium Level 9.4 MG/DL Sodium Level 132 MEQ/L Potassium Level 4.6 MEQ/L Chloride Level 102 MEQ/L Carbon Dioxide Level 22.8 MEQ/L Anion Gap 7 MEQ/L Estimat Glomerular Filtration Rate 51 ML/MIN White Blood Count 11.9 TH/MM3 Red Blood Count 4.64 MIL/MM3 Hemoglobin 13.8 GM/DL Hematocrit 42.3 % Mean Corpuscular Volume 91.2 FL Mean Corpuscular Hemoglobin 29.7 PG Mean Corpuscular Hemoglobin Concent 32.6 % Red Cell Distribution Width 14.4 % Platelet Count 210 TH/MM3 Mean Platelet Volume 9.8 FL Neutrophils (%) (Auto) 78.1 % Lymphocytes (%) (Auto) 9.4 % Monocytes (%) (Auto) 11.4 % Eosinophils (%) (Auto) 0.7 % Basophils (%) (Auto) 0.4 % Neutrophils # (Auto) 9.3 TH/MM3 Lymphocytes # (Auto) 1.1 TH/MM3 Monocytes # (Auto) 1.4 TH/MM3 Eosinophils # (Auto) 0.1 TH/MM3 Basophils # (Auto) 0.0 TH/MM3 CBC Comment AUTO DIFF Differential Total Cells Counted 100 Neutrophils % (Manual) 74 % Band Neutrophils % 4 % Lymphocytes % 12 % Monocytes % 5 % Eosinophils % 1 % Basophils % 4 % Neutrophils # (Manual) 9.3 TH/MM3 Differential Comment FINAL DIFF MANUAL Platelet Estimate NORMAL Platelet Morphology Comment NORMAL MDM Supervised Visit with BRENT: Yes Narrative Course The history, exam, and medical decision-making in the associated mid-level provider note were completed with my assistance. I reviewed and agree with the findings presented. I attest that I had a [id number] encounter with the patient on the same day, and personally performed and documented my assessment and findings in the medical record. *My assessment and Findings: 81-year-old presents emergency Department looks like candidiasis on her inner thighs. It's very severe with some erosions there is no induration or evidence of cellulitis. Her satellite lesions in a dark red color strongly characteristic of candidiasis. Patient states he symptoms came on over the day today, I think is probably unlikely. However don't see any evidence of rapidly progressive necrotizing soft tissue infection or more sinister disease. White count is minimal elevated. Recommend treatment for candidiasis. Diagnosis Primary Impression: Skin yeast infection Referrals: Primary Care Physician Patient Instructions: General Instructions, Nystatin (On the skin), Skin Yeast Infection (ED) Departure Forms: Tests/Procedures Additional Instruction: Please return to emergency department if your symptoms return or worsen. Follow up with your primary care provider. Take medications as prescribed. Keep area clean and dry. Scripts Nystatin Topical (Nystatin Topical) 100,000 unit/gm Cream 1 APPLIC TOPICAL BID for Infection, #15 GM 0 Refills Prov: Concepcion Nick GERSON 03/08/17 Disposition: 01 DISCHARGE HOME Condition: Stable Tee Garcia MD Mar 08, 2017 19:55
== END 2017-03-08 21:53 | disposition home or self-care (01) ==
LOC: NEPC 16:08
DX: B37.2 Candidiasis of skin and nail (principal); I10 Essential (primary) hypertension; F03.90 Unspecified dementia, unspecified severity, without behavioral disturbance, psychotic disturbance, mood disturbance, and anxiety; Z79.82 Long term (current) use of aspirin; Z79.899 Other long term (current) drug therapy
CPT/HCPCS: 80048; 85007; 85027; 99283